=== PATIENT | male | born 1950 | race Caucasian/White ===

== ENCOUNTER 2022-04-10 08:39 | Outpatient (CLI) | payer MEDICARE, SELFPAY | END 2022-04-10 08:40 | disposition home or self-care (01) | PROVIDERS: PCP Family Medicine; Visit Provider Nurse Practitioner Family | DX: L97.822 Non-pressure chronic ulcer of other part of left lower leg with fat layer exposed (principal); E11.21 Type 2 diabetes mellitus with diabetic nephropathy; I89.0 Lymphedema, not elsewhere classified; D63.1 Anemia in chronic kidney disease; I87.311 Chronic venous hypertension (idiopathic) with ulcer of right lower extremity; L97.812 Non-pressure chronic ulcer of other part of right lower leg with fat layer exposed; I50.32 Chronic diastolic (congestive) heart failure | CPT/HCPCS: 11042; 11045 ==

== ENCOUNTER 2022-04-24 08:10 | Outpatient (CLI) | payer MEDICARE, SELFPAY | END 2022-04-24 08:11 | disposition home or self-care (01) | LOC: WOUND 08:10 | PROVIDERS: PCP Family Medicine; Visit Provider Nurse Practitioner Family | DX: L97.822 Non-pressure chronic ulcer of other part of left lower leg with fat layer exposed (principal); E11.21 Type 2 diabetes mellitus with diabetic nephropathy; I89.0 Lymphedema, not elsewhere classified | CPT/HCPCS: 11042; 11045 ==

== ENCOUNTER 2022-05-01 08:02 | Outpatient (CLI) | payer MEDICARE, SELFPAY | END 2022-05-01 08:03 | disposition home or self-care (01) | LOC: WOUND 08:03 | PROVIDERS: PCP Family Medicine; Visit Provider Nurse Practitioner Family | DX: L97.822 Non-pressure chronic ulcer of other part of left lower leg with fat layer exposed (principal); E11.21 Type 2 diabetes mellitus with diabetic nephropathy; I89.0 Lymphedema, not elsewhere classified; Z79.84 Long term (current) use of oral hypoglycemic drugs; I87.312 Chronic venous hypertension (idiopathic) with ulcer of left lower extremity | CPT/HCPCS: 11042 ==

== ENCOUNTER 2022-05-08 08:02 | Outpatient (CLI) | payer MEDICARE, SELFPAY | END 2022-05-08 08:03 | disposition home or self-care (01) | LOC: WOUND 08:02 | PROVIDERS: PCP Family Medicine; Visit Provider Nurse Practitioner Family | DX: I87.312 Chronic venous hypertension (idiopathic) with ulcer of left lower extremity (principal); L97.822 Non-pressure chronic ulcer of other part of left lower leg with fat layer exposed; E11.21 Type 2 diabetes mellitus with diabetic nephropathy; Z79.84 Long term (current) use of oral hypoglycemic drugs; I89.0 Lymphedema, not elsewhere classified | CPT/HCPCS: 11042 ==

== ENCOUNTER 2022-05-15 07:52 | Outpatient (CLI) | payer MEDICARE, SELFPAY | END 2022-05-15 07:53 | disposition home or self-care (01) | LOC: WOUND 07:52 | PROVIDERS: PCP Family Medicine; Visit Provider Nurse Practitioner Family | DX: I87.312 Chronic venous hypertension (idiopathic) with ulcer of left lower extremity (principal); L97.822 Non-pressure chronic ulcer of other part of left lower leg with fat layer exposed; E11.21 Type 2 diabetes mellitus with diabetic nephropathy; I89.0 Lymphedema, not elsewhere classified | CPT/HCPCS: 11042 ==

== ENCOUNTER 2022-05-22 08:00 | Outpatient (CLI) | payer MEDICARE, SELFPAY | END 2022-05-22 08:01 | disposition home or self-care (01) | LOC: WOUND 08:01 | PROVIDERS: PCP Family Medicine; Visit Provider Nurse Practitioner Family | DX: I89.0 Lymphedema, not elsewhere classified (principal); L97.822 Non-pressure chronic ulcer of other part of left lower leg with fat layer exposed; E11.21 Type 2 diabetes mellitus with diabetic nephropathy; Z79.84 Long term (current) use of oral hypoglycemic drugs | CPT/HCPCS: 11042 ==

== ENCOUNTER 2022-05-29 11:03 | Outpatient (CLI) | payer MEDICARE, SELFPAY | END 2022-05-29 11:04 | disposition home or self-care (01) | LOC: WOUND 11:03 | PROVIDERS: PCP Family Medicine; Visit Provider Nurse Practitioner Family | DX: I89.0 Lymphedema, not elsewhere classified (principal); E11.621 Type 2 diabetes mellitus with foot ulcer; L97.822 Non-pressure chronic ulcer of other part of left lower leg with fat layer exposed; L97.812 Non-pressure chronic ulcer of other part of right lower leg with fat layer exposed; Z79.84 Long term (current) use of oral hypoglycemic drugs | CPT/HCPCS: 99212 ==

== ENCOUNTER 2022-06-05 07:50 | Outpatient (CLI) | payer MEDICARE, SELFPAY | END 2022-06-05 07:51 | disposition home or self-care (01) | PROVIDERS: PCP Family Medicine; Visit Provider Nurse Practitioner Family | DX: E11.21 Type 2 diabetes mellitus with diabetic nephropathy (principal); I89.0 Lymphedema, not elsewhere classified; L97.822 Non-pressure chronic ulcer of other part of left lower leg with fat layer exposed; L97.812 Non-pressure chronic ulcer of other part of right lower leg with fat layer exposed; Z79.84 Long term (current) use of oral hypoglycemic drugs | CPT/HCPCS: 99213 ==

== ENCOUNTER 2022-12-25 09:30 | Outpatient (CLI) | payer MEDICARE, SELFPAY | END 2022-12-25 09:31 | disposition home or self-care (01) | LOC: WOUND 09:31 | PROVIDERS: PCP Family Medicine; Visit Provider Nurse Practitioner Family | DX: S61.411A Laceration without foreign body of right hand, initial encounter (principal); E11.9 Type 2 diabetes mellitus without complications; W22.8XXA Striking against or struck by other objects, initial encounter; Z79.84 Long term (current) use of oral hypoglycemic drugs | CPT/HCPCS: 11042; 99212 ==

== ENCOUNTER 2023-01-01 08:45 | Outpatient (CLI) | payer MEDICARE, SELFPAY | END 2023-01-01 08:46 | disposition home or self-care (01) | LOC: WOUND 08:45 | PROVIDERS: PCP Family Medicine; Visit Provider Nurse Practitioner Family | DX: S61.411A Laceration without foreign body of right hand, initial encounter (principal); W22.8XXA Striking against or struck by other objects, initial encounter | CPT/HCPCS: 97597 ==

== ENCOUNTER 2023-01-08 09:14 | Outpatient (CLI) | payer MEDICARE, SELFPAY | END 2023-01-08 09:15 | disposition home or self-care (01) | LOC: WOUND 09:14 | PROVIDERS: PCP Family Medicine; Visit Provider Physician Assistant Surgical | DX: E11.628 Type 2 diabetes mellitus with other skin complications (principal); S61.411A Laceration without foreign body of right hand, initial encounter; Z79.84 Long term (current) use of oral hypoglycemic drugs | CPT/HCPCS: 11042 ==

== ENCOUNTER 2023-01-17 08:56 | Outpatient (CLI) | payer MEDICARE, SELFPAY | END 2023-01-17 08:57 | disposition home or self-care (01) | LOC: WOUND 08:56 | PROVIDERS: PCP Family Medicine; Visit Provider Nurse Practitioner Family | DX: S61.411A Laceration without foreign body of right hand, initial encounter (principal); E11.9 Type 2 diabetes mellitus without complications | CPT/HCPCS: 99212 ==

== ENCOUNTER 2023-12-16 12:02 | Outpatient (CLI) | payer MEDICARE, SELFPAY | END 2023-12-16 12:03 | disposition home or self-care (01) | LOC: AMB 12-21 17:42 | PROVIDERS: PCP Family Medicine; Visit Provider Emergency Medicine | DX: R06.09 Other forms of dyspnea (principal) | CPT/HCPCS: A0425; A0429 ==

== ENCOUNTER 2023-12-16 12:37 | Inpatient (IN) | payer MEDICARE, SELFPAY ==
[2023-12-16] VITALS (10 sets, daily range): BP systolic 115–136; BP diastolic 58–92; PULSE 49–55; RESP 20–22; TEMP 35.7–35.8; O2SAT 94–98; BMI 41.5; BMI 40.0
--- NOTE | 2023-12-16 13:23 | XR_ITS ---
Patient: MERCEDEZ GREEN Facility:?[facility] Patient ID:?[id number] Site Patient ID:?[id number]. Site :?[id number] Study:?XRay-Chest PORTABLE ONE VIEW-12/16/2023 2:02:28 PM Ordering Physician:BERNARDINO Final Report: Indication: Shortness of breath Comparison: None available. Technique: Single AP view chest Findings: There is hyperinflation and chronic interstitial change. There are mildly increased interstitial markings likely representing minimal pulmonary vascular congestion with basilar atelectasis and parenchymal scar. There is no pneumothorax. The cardiac silhouette is mildly prominent. The bony thorax is grossly intact. Impression: Chronic interstitial changes with mildly increased interstitial markings likely representing minimal pulmonary vascular congestion. Dictated by Mark Anthony Ziegler MD @ 12/16/2023 2:12:23 PM Signed by:?Mark Anthony Ziegler MD @12/16/2023 2:12:23 PM (Electronic Signature)
--- NOTE | 2023-12-16 13:29 | ED_ITS ---
HPI - General Adult General Date Seen: 12/16/23 Chief complaint: Shortness of Breath/Dyspnea Stated complaint: Shortness of breath Time Seen by Provider: 12/16/23 13:01 Source: patient, family and RN notes reviewed Mode of arrival: ambulatory Limitations: no limitations History of Present Illness HPI narrative: Patient is a 73-year-old male here with his son for evaluation of shortness of breath and edema in his legs. He notes that this is been progressive, from even before Lisa time but over the past couple of days he feels significantly worse. Says his normal dry weight is between 230 and 240 lb, he is currently at 265 lb, says he has been in the 260s for the past couple of weeks. He is not able to sleep due to discomfort in his legs and difficulty breathing, says he is only able to take a couple of steps before significant shortness of breath. He has not had chest pain or fevers, no cough. He has significant edema in his legs with weeping areas. He had previously been on Eliquis but that was discontinued as he has had some GI bleeding. He is on torsemide 20 mg daily, he tells me he used to take it twice a day but Dr. Mukherjee told him that it was hurting his kidneys and so they backed off to once a day. He is supposed to limit sodium and monitor his weight, he says he checks his weight about once a week. He has an after visit summary with him from September 12, his weight at that time was 238 lb. He was somewhat bradycardic at that time with the heart rate of 49 as well. Related Data Home Medications Medication Instructions Recorded Confirmed acetaminophen 325 mg capsule 325 mg PO QID PRN 12/16/23 12/16/23 atorvastatin 20 mg tablet 20 mg PO QPM 12/16/23 12/16/23 carvedilol 25 mg tablet 25 mg PO BID 12/16/23 12/16/23 febuxostat 40 mg tablet 40 mg PO QAM 12/16/23 12/16/23 ferrous sulfate 325 mg (65 mg 325 mg PO DAILY 12/16/23 12/16/23 iron) tablet (FeroSul) folic acid 1 mg tablet 1 mg PO DAILY 12/16/23 12/16/23 levothyroxine 75 mcg tablet 75 mcg PO QAM 12/16/23 12/16/23 losartan 25 mg tablet 25 mg PO DAILY 12/16/23 12/16/23 magnesium chloride 64 mg 64 mg PO BID 12/16/23 12/16/23 (magnesium chloride) tablet,delayed release (Mag 64) metformin 500 mg tablet,extended 1,000 mg PO QPM 12/16/23 12/16/23 release 24 hr omeprazole 20 mg capsule,delayed 20 mg PO DAILY 12/16/23 12/16/23 release prednisone 20 mg tablet 40 mg PO DAILY PRN gout pain 12/16/23 12/16/23 sildenafil 100 mg tablet 100 mg PO DAILY PRN 12/16/23 12/16/23 thiamine HCl (vitamin B1) 100 mg 100 mg PO DAILY 12/16/23 12/16/23 tablet torsemide 20 mg tablet 20 mg PO DAILY 12/16/23 12/16/23 Allergies Allergy/AdvReac Type Severity Reaction Status Date / Time allopurinol Allergy Mild Hives Verified 12/16/23 13:01 lisinopril Allergy Mild increased Verified 12/16/23 13:01 Cr amlodipine Allergy edema Verified 12/16/23 13:01 Review of Systems Status of ROS: Reports: 10 or more systems reviewed and unremarkable except as noted in History and below [facility] Medical History (Updated 12/16/23 @ 17:25 by Shadia Doyle MD) Normocytic anemia ?D64.9 - Anemia, unspecified (ICD-10) GI bleeding ?K92.2 - Gastrointestinal hemorrhage, unspecified (ICD-10) Alcohol dependence in remission ?F10.21 - Alcohol dependence, in remission (ICD-10) Anasarca ?R60.1 - Generalized edema (ICD-10) Recurrent depression ?F33.9 - Major depressive disorder, recurrent, unspecified (ICD-10) Venous stasis ulcer ?I83.009 - Varicose veins of unspecified lower extremity with ulcer of unspecified site (ICD-10) ?L97.909 - Non-pressure chronic ulcer of unspecified part of unspecified lower leg with unspecified severity (ICD-10) Type 2 diabetes mellitus ?E11.9 - Type 2 diabetes mellitus without complications (ICD-10) Chronic atrial fibrillation ?I48.20 - Chronic atrial fibrillation, unspecified (ICD-10) Obesity ?E66.9 - Obesity, unspecified (ICD-10) Gout ?M10.9 - Gout, unspecified (ICD-10) Impotence of organic origin ?N52.9 - Male erectile dysfunction, unspecified (ICD-10) Essential hypertension ?I10 - Essential (primary) hypertension (ICD-10) Chronic kidney disease (CKD) ?N18.9 - Chronic kidney disease, unspecified (ICD-10) Moderate tricuspid regurgitation ?I07.1 - Rheumatic tricuspid insufficiency (ICD-10) Heart failure with preserved ejection fraction ?I50.30 - Unspecified diastolic (congestive) heart failure (ICD-10) POLST (Physician Orders for Life-Sustaining Treatment) ?Z78.9 - Other specified health status (ICD-10) Social History (Updated 12/16/23 @ 17:29 by Shadia Doyle MD) Narrative: Lives independently. Son, Jacob, lives nearby and checks on him and has offered to make low sodium meals for him. Uses walker. Quit tobacco use in 2002, 10 pack-year history. Drinks 1-2 alcoholic beverages daily. What is your current living situation?: I presently have a place to live Problems where you live: no known problems Problems where you live details: [facility] In the past 12 months, utilities in danger of being shut off: no In past 12 months, lack of transportation kept you from medical appts, meetings, work, or getting things needed for daily living: no In the past 12 mos, have been you worried that your food would run out before you had money to buy more?: never true In the past 12 mos, the food you bought just didn't last and you didn't have money to buy more?: never true Highest level of school completed/degree received: GED or equivalent Smoking Status: Never smoker How often do you have a drink containing alcohol: 4 or more times a week Alcohol type: hard liquor How many standard drinks containing alcohol do you have on a typical day: 3 or 4 How often do you have six or more drinks on one occasion: Less than monthly AUDIT-C Alcohol total score: 6 Non-prescribed substance use: denies use Caffeine: Yes How often does anyone, including family, friends and others, physically hurt you : never How often does anyone, including family, friends and others, insult or talk down to you: never How often does anyone, including family, friends and others, threaten you with harm: never How often does anyone, including family, friends and others, scream or curse at you: never service: No Exam Narrative: Exam Narrative: Vital signs as noted above. In general, an alert, nontoxic elderly male. He is speaking in full sentences, appears a little bit dyspneic. Head: Normocephalic, atraumatic. Eyes: Pupils are equal reactive. Extraocular movements are full. Conjunctivae are normal. ENT: Mucous membranes are moist. Throat is normal. Neck: Supple without lymphadenopathy. Heart: Mildly bradycardic, regular. No murmur. Lungs: Coarse crackles in bilateral bases. Decreased breath sounds. Abdomen: Obese, protuberant, nontender to palpation. Extremities: Significant edema in bilateral lower extremities, venous stasis changes, areas of weeping. Both legs are mildly erythematous but not warm. Neurologic: Patient is alert and oriented to person and place. Speech is fluent. Face is symmetric. Moves all extremities equally. Affect: Normal. Skin: Warm and dry. Well perfused. Const: Vital Signs, click to edit/add: Vital Signs - 24 hr 12/16/23 12:53 12/16/23 13:00 12/16/23 13:30 Temperature 96.5 F L Pulse Rate Pulse Rate [Pulse Oximeter] Pulse Rate [Right Pulse Oximeter] 49 L Respiratory Rate 22 Blood Pressure [Ri ght Arm] Blood Pressure [Ri ght Upper Arm] 125/63 115/58 L 124/72 Pulse Oximetry 98 Oxygen Delivery Me thod Room Air 12/16/23 13:48 12/16/23 14:00 12/16/23 14:18 Temperature Pulse Rate 53 L Pulse Rate [Pulse Oximeter] Pulse Rate [Right Pulse Oximeter] Respiratory Rate Blood Pressure [Ri ght Arm] Blood Pressure [Ri ght Upper Arm] 122/68 Pulse Oximetry 94 97 Oxygen Delivery Me thod 12/16/23 16:46 12/16/23 16:46 Temperature 96.3 F L Pulse Rate Pulse Rate [Pulse Oximeter] 52 L Pulse Rate [Right Pulse Oximeter] Respiratory Rate 22 22 Blood Pressure [Ri ght Arm] 136/92 H Blood Pressure [Ri ght Upper Arm] Pulse Oximetry 97 97 Oxygen Delivery Me thod Room Air Room Air Documenting provider has reviewed patient's vital signs: yes Course Course ED Course: Patient presents with fluid overload, gradually worsening for the past several months, more acutely short of breath over the past couple of days. His O2 sats however are normal at rest. He does live independently, normally walks with a walker. Here today with his son. I am anticipating he will likely not be able to manage at home right now. Will check labs, does have a history of chronic kidney disease, low magnesium, hypothyroidism. Chest x-ray shows cardiomegaly, a little bit of pulmonary vascular congestion both by my review and radiology read. Labs are notable for a slightly depressed white blood cell count of 4, hemoglobin of 8.4. Baseline is unknown. Type and screen added on. Sodium is 133, potassium 5.8. CO2 17, BUN 87, creatinine 4.1. Last recorded at 1.1 in March of 2022. LFTs are unremarkable. CRP less than 0.5, BNP 4100. TSH mildly elevated at 5.3. UA notable for 2-5 red cells, 5-10 white cells but moderate squames. 1+ protein. Point of care troponin was 0.01. He did have an EKG which showed atrial fibrillation with a slow ventricular rate of 54. No acute ST segment changes. T-waves are unremarkable. No signs of hyperkalemia. He does have a history of fairly steady alcohol use, had significant problems with withdrawal last time he was in the hospital, his son says that he continues to drink, but does think that he has cut back some. His blood alcohol here today is actually less than 0.01%, he showing no signs of withdrawal at this time. I gave him 40 mg of Lasix IV and then an additional 40 on seeing his creatinine. Discussed with his son that we will bring him into the hospital for diuresis and monitor his kidney function. This time, though he feels short of breath his O2 sats are 98%, he is not requiring any respiratory assistance. Vital Signs Vital signs: Initial Vital Signs Temperature 96.5 F L 12/16/23 12:53 Temperature Source Temporal Artery Scan 12/16/23 12:53 Pulse Rate 49 L 12/16/23 12:53 Respiratory Rate 22 12/16/23 12:53 Blood Pressure 125/63 12/16/23 12:53 Blood Pressure Mean 83 12/16/23 12:53 Blood Pressure Position Sitting 12/16/23 12:53 Pulse Oximetry 98 12/16/23 12:53 Oxygen Delivery Method Room Air 12/16/23 12:53 Vital Signs Temperature 96.5 F L 12/16/23 12:53 Pulse Rate 49 L 12/16/23 12:53 Respiratory Rate 12/16/23 12:53 Blood Pressure 125/63 12/16/23 12:53 Pulse Oximetry 98 12/16/23 12:53 Oxygen Delivery Method Room Air 12/16/23 12:53 Temperature 96.3 F L 12/16/23 16:46 Pulse Rate 52 L 12/16/23 16:46 Respiratory Rate 12/16/23 16:46 Blood Pressure 136/92 H 12/16/23 16:46 Pulse Oximetry 97 12/16/23 16:46 Oxygen Delivery Method Room Air 12/16/23 16:46 Medications Administered Medications: Discontinued Medications Generic Name Dose Route Start Last Admin Trade Name Freq PRN Reason Stop Dose Admin Furosemide 40 mg 12/16/23 13:22 12/16/23 14:10 Furosemide 10 Mg/Ml Inj IVP 12/16/23 13:23 40 mg ONCE ONE Administration Furosemide 40 mg 12/16/23 14:51 12/16/23 15:06 Furosemide 10 Mg/Ml Inj IVP 12/16/23 14:52 40 mg ONCE ONE Administration Medical Decision Making Lab Data Labs: Lab Results 12/16/23 12/16/23 12/16/23 Range/Units 13:26 13:45 14:38 WBC 4.01 L (4.50-11.00) K/uL RBC 3.15 L (4.30-5.90) m/uL Hgb 8.4 L (13.5-17.5) gm/dL Hct 27.8 L (37.0-53.0) % MCV 88 (80-100) fL MCH 27 (26-34) pg MCHC 30 L (32-36) gm/dL RDW Coeff of Royal 18.1 H (11.5-15.5) % Plt Count 76 L (140-440) K/uL Neut % (Auto) 79.7 H (42.0-72.0) % Lymph % (Auto) 11.7 L (20-44) % [place] % (Auto) 6.5 (0.0-11.0) % Eos % (Auto) 1.7 (0.0-7.0) % Baso % (Auto) 0.2 (0.0-3.0) % Neut # (Auto) 3.20 (1.7-7.0) K/uL Lymph # (Auto) 0.50 L (0.90-2.90) K/uL [place] # (Auto) 0.30 (0.00-0.90) K/UL Eos # (Auto) 0.10 (0.00-0.50) K/uL Baso # (Auto) 0.00 (0.00-0.30) K/uL Abs Immat Gran (auto) 0.00 (0.00-0.30) K/uL Imm/Tot Granulo (auto) 0.2 % Sodium 133 L (135-149) mmol/L Potassium 5.8 H (3.6-5.1) mmol/L Chloride 103 (96-114) mmol/L Carbon Dioxide 17 L (20-32) mmol/L Anion Gap 13 (7-15) mEq/L BUN 87 H (7-30) mg/dL Creatinine 4.1 H (0.5-1.5) mg/dL Estimated Creat Clear 15.00 Estimated GFR 15 ml/min Glucose 81 (60-115) mg/dL Calcium 9.3 (8.4-10.6) mg/dL Magnesium 2.3 (1.5-2.6) mg/dL Total Bilirubin 1.0 (0.1-1.5) mg/dL Direct Bilirubin 0.5 (0.0-0.5) mg/dL AST 22 (12-35) U/L ALT 12 (4-50) U/L Alkaline Phosphatase 110 (40-150) U/L C-Reactive Protein < 0.5 L (0.5-1.0) mg/dL NT-Pro-B Natriuret Pep 4110 pg/mL Total Protein 6.5 (6.0-8.3) g/dL Albumin 4.1 (3.3-5.0) g/dL TSH 5.330 H (0.270-4.200) uIU/mL Urine Color Yellow (Yellow) Urine Appearance Slightly Cloudy A (Clear) Urine pH 5.5 (5.0-8.5) Ur Specific [place] 1.020 (1.000-1.030) Urine Protein 1+ A (Negative) Urine Glucose (UA) Negative (Negative) Urine Ketones Negative (Negative) Urine Blood 2+ A (Negative) Urine Nitrite Negative (Negative) Urine Bilirubin Negative (Negative) Urine Urobilinogen 0.2 (0.2-1.0) Ur Leukocyte Esterase 3+ A (Negative) Urine RBC 2-5 A (0-2) Urine WBC 5-10 A (0-5) Ur Squamous Epith Cells Moderate A (None-Few) Urine Bacteria Moderate A (None) Fine Granular Casts Moderate A (None) Ethyl Alcohol < 0.01 L (0.01-0.03) % POC Troponin I 0.01 (0.01-0.04) ng/ml Blood Type Antibody Screen 12/16/23 Range/Units 15:24 WBC (4.50-11.00) K/uL RBC (4.30-5.90) m/uL Hgb (13.5-17.5) gm/dL Hct (37.0-53.0) % MCV (80-100) fL MCH (26-34) pg MCHC (32-36) gm/dL RDW Coeff of Royal (11.5-15.5) % Plt Count (140-440) K/uL Neut % (Auto) (42.0-72.0) % Lymph % (Auto) (20-44) % [place] % (Auto) (0.0-11.0) % Eos % (Auto) (0.0-7.0) % Baso % (Auto) (0.0-3.0) % Neut # (Auto) (1.7-7.0) K/uL Lymph # (Auto) (0.90-2.90) K/uL [place] # (Auto) (0.00-0.90) K/UL Eos # (Auto) (0.00-0.50) K/uL Baso # (Auto) (0.00-0.30) K/uL Abs Immat Gran (auto) (0.00-0.30) K/uL Imm/Tot Granulo (auto) % Sodium (135-149) mmol/L Potassium 5.8 H (3.6-5.1) mmol/L Chloride (96-114) mmol/L Carbon Dioxide (20-32) mmol/L Anion Gap (7-15) mEq/L BUN (7-30) mg/dL Creatinine (0.5-1.5) mg/dL Estimated Creat Clear Estimated GFR ml/min Glucose (60-115) mg/dL Calcium (8.4-10.6) mg/dL Magnesium (1.5-2.6) mg/dL Total Bilirubin (0.1-1.5) mg/dL Direct Bilirubin (0.0-0.5) mg/dL AST (12-35) U/L ALT (4-50) U/L Alkaline Phosphatase (40-150) U/L C-Reactive Protein (0.5-1.0) mg/dL NT-Pro-B Natriuret Pep pg/mL Total Protein (6.0-8.3) g/dL Albumin (3.3-5.0) g/dL TSH (0.270-4.200) uIU/mL Urine Color (Yellow) Urine Appearance (Clear) Urine pH (5.0-8.5) Ur Specific [place] (1.000-1.030) Urine Protein (Negative) Urine Glucose (UA) (Negative) Urine Ketones (Negative) Urine Blood (Negative) Urine Nitrite (Negative) Urine Bilirubin (Negative) Urine Urobilinogen (0.2-1.0) Ur Leukocyte Esterase (Negative) Urine RBC (0-2) Urine WBC (0-5) Ur Squamous Epith Cells (None-Few) Urine Bacteria (None) Fine Granular Casts (None) Ethyl Alcohol (0.01-0.03) % POC Troponin I (0.01-0.04) ng/ml Blood Type B Positive Antibody Screen NEGATIVE Discharge Plan Discharge Clinical Impression: Congestive heart failure, Acute renal insufficiency Patient Disposition: Admitted As Observation Condition: Stable
[2023-12-16 14:05] LABS: Troponin, Point-of-Care* 0.01 ng/ml (0.01-0.04)
[2023-12-16 14:06] LABS: Basophils Percent Auto 0.2 % (0.0-3.0); Eosinophils Percent Auto 1.7 % (0.0-7.0); Hematocrit 27.8 % (37.0-53.0); Hemoglobin* 8.4 gm/dL (13.5-17.5); Immature Granulocytes Pct Auto 0.2 %; Lymphocytes Percent Auto 11.7 % (20-44); Mean Corpuscular HGB Conc 30 gm/dL (32-36); Mean Corpuscular Hemoglobin 27 pg (26-34); Mean Corpuscular Volume 88 fL (80-100); Monocytes Percent Auto 6.5 % (0.0-11.0); Neutrophils Percent Auto 79.7 % (42.0-72.0); Platelet Count* 76 K/uL (140-440); RDW Coefficient of Variation % 18.1 % (11.5-15.5); Red Blood Count 3.15 m/uL (4.30-5.90); White Blood Count* 4.01 K/uL (4.50-11.00)
[2023-12-16 14:08] LABS: Slide Review Reflex No
[2023-12-16] MEDS: FUROSEMIDE 10 MG/ML inj 40 MG IVP ×2 (14:10→15:06)
[2023-12-16 14:15] LABS: Albumin* 4.1 g/dL (3.3-5.0); Chloride* 103 mmol/L (96-114); Sodium* 133 mmol/L (135-149)
[2023-12-16 14:16] LABS: Potassium* 5.8 mmol/L (3.6-5.1)
[2023-12-16 14:18] LABS: Anion Gap 13 mEq/L (7-15); Bilirubin Direct* 0.5 mg/dL (0.0-0.5); Carbon Dioxide* 17 mmol/L (20-32); Creatinine* 4.1 mg/dL (0.5-1.5); Estimated Glomerular Filt Rate 15 ml/min; Total Protein* 6.5 g/dL (6.0-8.3)
[2023-12-16 14:19] LABS: Alanine Aminotransferase* 12 U/L (4-50); Alkaline Phosphatase* 110 U/L (40-150); Aspartate Amino Transferase* 22 U/L (12-35); Blood Urea Nitrogen* 87 mg/dL (7-30); Calcium* 9.3 mg/dL (8.4-10.6); Glucose* 81 mg/dL (60-115); Magnesium* 2.3 mg/dL (1.5-2.6)
[2023-12-16 14:25] LABS: C Reactive Protein* < 0.5 mg/dL (0.5-1.0)
[2023-12-16 14:29] LABS: NT Pro B Type NatriureticPept* 4110 pg/mL
[2023-12-16 14:55] LABS: Ethanol* < 0.01 % (0.01-0.03)
[2023-12-16 15:13] LABS: Appearance Urine Slightly Cloudy (Clear); Bilirubin Urine Negative (Negative); Blood Urine 2+ (Negative); Color Urine Yellow (Yellow); Glucose Urine Negative (Negative); Ketones Urine Negative (Negative); Leukocyte Esterase Urine 3+ (Negative); Nitrite Urine Negative (Negative); Protein Urine 1+ (Negative); Urobilinogen Urine 0.2 (0.2-1.0); pH Urine 5.5 (5.0-8.5)
[2023-12-16 15:38] LABS: Bacteria Urine Moderate; Squamous Epithelial Cell Urine Moderate (None-Few)
[2023-12-16 15:42] LABS: Fine Granular Casts Urine Moderate
--- NOTE | 2023-12-16 16:59 | US_ITS ---
Patient: MERCEDEZ GREEN Facility:?[facility] Patient ID:?[id number] Site Patient ID:?[id number]. Site :?[id number] Study:?US-Extremity Left DVT-12/16/2023 7:14:24 PM Ordering Physician:JUAN Final Report: INDICATION: Left lower extremity pain, swelling and edema TECHNIQUE: Ultrasound venous duplex lower left extremity. Compression venous exam was performed using peck-scale, color Doppler, and spectral Doppler analysis. COMPARISON: None. FINDINGS: Sonographic imaging demonstrates the left common femoral, deep femoral, superficial femoral, popliteal, posterior tibial and greater saphenous and the contralateral right common femoral veins to be fully compressible with normal color Doppler blood flow. Subcutaneous edema without focal fluid collection. Septated hypoechoic collection at the medial aspect of the knee measuring 3.4 x 7.3 x 1.7 centimeters. IMPRESSION: 1. No evidence of deep venous thrombosis left lower extremity. 2. Subcutaneous edema with complex collection near the medial aspect of the left knee measuring 7.3 centimeters. Differential includes Chowdhury`s cyst, distended bursa or ganglion. Dictated by Rajan Kwan MD @ 12/16/2023 7:25:28 PM Signed by:?Rajan Kwan MD @12/16/2023 7:25:28 PM (Electronic Signature)
--- NOTE | 2023-12-16 17:07 | P.IMHP_ITS ---
Hospitalist- H&P: HPI History of Present Illness Time Seen by Provider: 16:20 Date Seen: 12/16/23 Chief complaint: Shortness of breath Narrative: Javi Whiteside is a 73 year old male with history of diastolic heart failure, type 2 diabetes mellitus, chronic atrial fibrillation with chronic bradycardia, chronic normocytic anemia with known GI bleeding for which he has declined further workup, obesity, chronic kidney disease, hypertension, and chronic lower extremity edema with history of venous stasis ulcers presented through the emergency department with concerns of worsening shortness of breath and fluid buildup. He last saw his tail puller last summer and had an echocardiogram at that time which showed an EF of 52%. He says he was told his heart was fine. Since then he has been working with his primary care provider Dr. Mukherjee and last saw him at the end of October. He had been on torsemide twice a day, but due to elevated creatinine, Dr. Mukherjee decreased torsemide to once a day. In September his weight was 238 lb, but he has been gaining weight over the last couple of weeks and is now in the 260s. It is becoming difficult for him to sleep due to difficulty breathing and discomfort in his legs. He is unable to elevate his legs due to weeping and fragile skin, so he has been letting them day ankle while he tries to sleep sitting up in a recliner chair without reclining. He has gotten no sleep over the last 2 nights due to shortness of breath. He notices that his lower extremities are getting extremely edematous and notes that the left is much worse than the right. He is also having left groin pain. In the last 2 days, he has had markedly decreased urine output. He knows he is supposed to be on a low-salt diet, but he lives at home alone and cooks for himself and has difficulty figuring out what to eat on a low-salt d iet. He regularly has various types of hard sausages, deli meats, canned soups, breads and pastas as part of his diet. His son, Jacob, is in the room with him and says that he will start going grocery shopping for his dad again and will get him an immersion cooker and make VAC sealed meets and vegetables that he can cook with that to help him be on a low-salt diet. He has a history of venous stasis ulcers for which he used to go to wound care, but they healed up insert he does not go to wound care anymore. He still uses [facility] if he notices a spot that is breaking open. He has had many spots break open over the last few days. Review of Systems Status of ROS: Reports: 10 or more systems reviewed and unremarkable except as noted in History and below [facility] Medical History (Updated 12/16/23 @ 19:29 by Shadia Doyle MD) Normocytic anemia ?D64.9 - Anemia, unspecified (ICD-10) GI bleeding ?K92.2 - Gastrointestinal hemorrhage, unspecified (ICD-10) Alcohol dependence in remission ?F10.21 - Alcohol dependence, in remission (ICD-10) Anasarca ?R60.1 - Generalized edema (ICD-10) Recurrent depression ?F33.9 - Major depressive disorder, recurrent, unspecified (ICD-10) Venous stasis ulcer ?I83.009 - Varicose veins of unspecified lower extremity with ulcer of unspecified site (ICD-10) ?L97.909 - Non-pressure chronic ulcer of unspecified part of unspecified lower leg with unspecified severity (ICD-10) Type 2 diabetes mellitus ?E11.9 - Type 2 diabetes mellitus without complications (ICD-10) Chronic atrial fibrillation ?I48.20 - Chronic atrial fibrillation, unspecified (ICD-10) Obesity ?E66.9 - Obesity, unspecified (ICD-10) Gout ?M10.9 - Gout, unspecified (ICD-10) Impotence of organic origin ?N52.9 - Male erectile dysfunction, unspecified (ICD-10) Essential hypertension ?I10 - Essential (primary) hypertension (ICD-10) Chronic kidney disease (CKD) ?N18.9 - Chronic kidney disease, unspecified (ICD-10) Moderate tricuspid regurgitation ?I07.1 - Rheumatic tricuspid insufficiency (ICD-10) Heart failure with preserved ejection fraction ?I50.30 - Unspecified diastolic (congestive) heart failure (ICD-10) POLST (Physician Orders for Life-Sustaining Treatment) ?Z78.9 - Other specified health status (ICD-10) Social History (Updated 12/16/23 @ 17:29 by Shadia Doyle MD) Narrative: Lives independently. SonJacob, lives nearby and checks on him and has offered to make low sodium meals for him. Uses walker. Quit tobacco use in 2002, 10 pack-year history. Drinks 1-2 alcoholic beverages daily. What is your current living situation?: I presently have a place to live Problems where you live: no known problems Problems where you live details: [facility] In the past 12 months, utilities in danger of being shut off: no In past 12 months, lack of transportation kept you from medical appts, meetings, work, or getting things needed for daily living: no In the past 12 mos, have been you worried that your food would run out before you had money to buy more?: never true In the past 12 mos, the food you bought just didn't last and you didn't have money to buy more?: never true Highest level of school completed/degree received: GED or equivalent Smoking Status: Never smoker How often do you have a drink containing alcohol: 4 or more times a week Alcohol type: hard liquor How many standard drinks containing alcohol do you have on a typical day: 3 or 4 How often do you have six or more drinks on one occasion: Less than monthly AUDIT-C Alcohol total score: 6 Non-prescribed substance use: denies use Caffeine: Yes How often does anyone, including family, friends and others, physically hurt you : never How often does anyone, including family, friends and others, insult or talk down to you: never How often does anyone, including family, friends and others, threaten you with harm: never How often does anyone, including family, friends and others, scream or curse at you: never service: No Meds Home Medications and Allergies Home Medications Medication Instructions Recorded Confirmed Type acetaminophen 325 mg capsule 325 mg PO QID PRN 12/16/23 12/16/23 History atorvastatin 20 mg tablet 20 mg PO QPM 12/16/23 12/16/23 History carvedilol 25 mg tablet 25 mg PO BID 12/16/23 12/16/23 History febuxostat 40 mg tablet 40 mg PO QAM 12/16/23 12/16/23 History ferrous sulfate 325 mg (65 mg 325 mg PO DAILY 12/16/23 12/16/23 History iron) tablet (FeroSul) folic acid 1 mg tablet 1 mg PO DAILY 12/16/23 12/16/23 History levothyroxine 75 mcg tablet 75 mcg PO QAM 12/16/23 12/16/23 History losartan 25 mg tablet 25 mg PO DAILY 12/16/23 12/16/23 History magnesium chloride 64 mg 64 mg PO BID 12/16/23 12/16/23 History (magnesium chloride) tablet,delayed release (Mag 64) metformin 500 mg tablet,extended 1,000 mg PO QPM 12/16/23 12/16/23 History release 24 hr omeprazole 20 mg capsule,delayed 20 mg PO DAILY 12/16/23 12/16/23 History release prednisone 20 mg tablet 40 mg PO DAILY PRN gout pain 12/16/23 12/16/23 History sildenafil 100 mg tablet 100 mg PO DAILY PRN 12/16/23 12/16/23 History thiamine HCl (vitamin B1) 100 mg 100 mg PO DAILY 12/16/23 12/16/23 History tablet torsemide 20 mg tablet 20 mg PO DAILY 12/16/23 12/16/23 History Allergies Allergy/AdvReac Type Severity Reaction Status Date / Time allopurinol Allergy Mild Hives Verified 12/16/23 13:01 lisinopril Allergy Mild increased Verified 12/16/23 13:01 Cr amlodipine Allergy edema Verified 12/16/23 13:01 Exam Narrative: Exam Narrative: General: No acute distress. Awake alert oriented x3. Morbidly obese. HEENT: Normocephalic atraumatic, pupils equally round and reactive to light and accommodation. Oropharynx clear. Mucous membranes are moist. No cervical lymphadenopathy, thyromegaly or carotid bruits. JVD and HJR present at 60 degrees elevation of the head. Cardiovascular: Irregularly irregular, bradycardic. Grade 1/6 systolic murmur loudest at the left lower sternal border. Chest: No increased work of breathing; taking shallow breaths, breathes harder when sitting forward for lung exam. Distant breath sounds at the bases, fine bibasilar crackles. Abdomen: Protuberant. Bowel sounds present. Distended, some ascites, nontender to palpation. Cannot discern if there is hepatosplenomegaly. Extremities: Massive bilateral lower extremity edema, left worse than right, no cyanosis or clubbing. Skin is taut and weepy with multiple superficial weeping ulcers of various sizes up to a quarter on both lower extremities. There is no purulence. No induration although there is mild erythema uniformly over both l ower extremities, no bleeding. No calor. Skin: No jaundice, no pallor. Const: Vital Signs, click to edit/add: Vital Signs - 24 hr 12/16/23 12:53 12/16/23 13:00 12/16/23 13:30 Temperature 96.5 F L Pulse Rate Pulse Rate [Right Pulse Oximeter] 49 L Respiratory Rate 22 Blood Pressure [Ri ght Upper Arm] 125/63 115/58 L 124/72 Pulse Oximetry 98 [facility] 12/16/23 13:48 12/16/23 14:00 12/16/23 14:18 Temperature Pulse Rate 53 L Pulse Rate [Right Pulse Oximeter] Respiratory Rate Blood Pressure [Ri ght Upper Arm] 122/68 Pulse Oximetry 94 97 [facility] - H&P: Result Labs Labs: Short CBC 12/16/23 Range/Units 13:45 WBC 4.01 L (4.50-11.00) K/uL Hgb 8.4 L (13.5-17.5) gm/dL Hct 27.8 L (37.0-53.0) % Plt Count 76 L (140-440) K/uL BMP 12/16/23 13:45 Sodium 133 L Potassium 5.8 H Chloride 103 Carbon Dioxide 17 L BUN 87 H Creatinine 4.1 H Glucose 81 Calcium 9.3 Liver Function 12/16/23 Range/Units 13:45 Total Bilirubin 1.0 (0.1-1.5) mg/dL Direct Bilirubin 0.5 (0.0-0.5) mg/dL AST 22 (12-35) U/L ALT 12 (4-50) U/L Alkaline Phosphatase 110 (40-150) U/L Albumin 4.1 (3.3-5.0) g/dL Urine 12/16/23 Range/Units 14:38 Urine Color Yellow (Yellow) Urine Appearance Slightly Cloudy A (Clear) Urine pH 5.5 (5.0-8.5) Ur Specific [place] 1.020 (1.000-1.030) Urine Protein 1+ A (Negative) Urine Glucose (UA) Negative (Negative) Study: XRay Chest PORTABLE ONE VIEW-12/16/2023 2:02:28 PM Ordering Physician: JEANIE Final Report: Indication: Shortness of breath Comparison: None available. Technique: Single AP view chest Findings: There is hyperinflation and chronic interstitial change. There are mildly increased interstitial markings likely representing minimal pulmonary vascular congestion with basilar atelectasis and parenchymal scar. There is no pneumothorax. The cardiac silhouette is mildly prominent. The bony thorax is grossly intact. Impression: Chronic interstitial changes with mildly increased interstitial markings likely representing minimal pulmonary vascular congestion. Dictated by Mark Anthony Ziegler MD @ 12/16/2023 2:12:23 PM (Electronic Signature) ECG Interpretation: 12/16/2023 EKG: Atrial fibrillation with slow ventricular response, 54 beats per minute, right bundle-branch block. Assessment and Plan Assessment and plan (1) Acute on chronic heart failure: Problem comment: - Diastolic, most recent echo was 05/09/2023 which showed an EF of 52%. Since this was less than a year ago, I do not think he needs another one during this admission. - Admit for diuresis. I explained to the patient that renal failure is likely due to urinary retention and heart failure and will likely improve some with diuresis, but there is also a chance that it may worsen and he may need dialysis. Due to markedly elevated creatinine, start furosemide at [address] wilson catheter for suspected acute urinary obstruction. Monitor I/Os and daily weights. - Discussed low sodium diet. Also start water restriction. Status: Acute (2) Acute kidney injury: Problem comment: - on top of chronic kidney disease stage 3-4 - likely multifactorial including cardiorenal syndrome from heart failure and acute urinary retention - Hold atorvastatin, carvedilol, febuxostat, and metformin, place freddy wilson as above Status: Acute (3) Cardiorenal syndrome with renal failure: Problem comment: - Treat as above Status: Acute (4) Hyperkalemia: Problem comment: - EKG does not show any effect of hyperkalemia. - Will give calcium gluconate for cardiac membrane stabilization. - Will likely correct with furosemide being given for diuresis. Monitor on telemetry and recheck potassium in the morning. Hold losartan. Status: Acute (5) Edema of left lower extremity: Problem comment: - Bilateral, but L much worse than R. Obtain LLE US for DVT, although if patient has DVT, discussion regarding treatment will need to take place due to severity of anemia and h/o GI bleed. Diurese, elevate and wrap legs with POPEYE wraps. Status: Acute (6) Type 2 diabetes mellitus: Problem comment: - Metformin held due to ANDREY, start ISS Status: Chronic (7) Venous stasis ulcer: Problem comment: - Does not appear cellulitic. Diurese, elevate legs, Popeye wraps, monitor. May need to return to wound clinic as an outpatient. Status: Acute (8) Chronic atrial fibrillation: Problem comment: - bradycardic, hold coreg - Eliquis on hold due to h/o GI bleeding, anemia. Status: Chronic (9) Essential hypertension: Problem comment: - as above Status: Chronic (10) GI bleeding: Problem comment: - Unclear source, has stopped Eliquis due to bleeding - Avoid pharmacologic VTE prophylaxis Status: Chronic (11) Normocytic anemia: Problem comment: - likely multifactorial due to GI bleed, CKD Status: Chronic
[2023-12-16 17:25] LABS: Potassium* 5.8 mmol/L (3.6-5.1)
[2023-12-16 17:29] LABS: Magnesium* 2.4 mg/dL (1.5-2.6)
--- NOTE | 2023-12-16 18:28 | PC.NURSE ---
End of shift note: Pt arrived to unit at 1500. Pt is A&O, afebrile and VSS this afternoon. Ax1 with gait belt and 2ww for transfers and ambulation. Farfan catheter placed per MD order with unmeasurable output thus far. Pt voided for 50 mL prior to catheter placement. PIV in left wrist SL and C/D/I. BLE 3+ with weeping blisters. BLE wrapped with Kerlix & ELAINE wraps. Patients Transporter noticed redness to his coccyx. Placed on TELE reading A. Fib with bradycardia rate in the 40s-50s. Pt started on 1500 mL fluid restriction. Blood sugar before supper: 97, pt started on his evening meal but has been unable to finish it d/t BLE US ordered to r/o VTE. Potassium high at 5.8; Calcium gluconate 1000mg IV ordered but has not been verified by pharmacy yet.
[2023-12-16 18:29] LABS: Free T4 Free Thyroxine* 1.51 ng/dL (0.70-1.85)
[2023-12-16] MEDS: CALCIUM GLUC 1,000MG/50 ML 1,000 MG/50 ML BAG 100 MG IVPB (19:28)
[2023-12-16] MEDS: MELATONIN 3 MG TABLET PO (21:15)
[2023-12-16] MEDS: ACETAMINOPHEN 325 MG TABLET 650 MG PO (21:15)
[2023-12-16] MEDS: FUROSEMIDE 10 MG/ML inj 80 MG IVP (22:48)
[2023-12-16] MEDS: SODIUM CHLORIDE 0.9 % (FLUSH) 10 ML SYRINGE 5 ML IVF (22:49)
[2023-12-16] MEDS: lidocaine HCL 2 % JELLY (TOP) STERILE 6 ML UR (23:02)
[2023-12-16] MEDS: oxyBUTYnin chloride 5 MG TABLET PO (23:02)
[2023-12-17 02:02] VITALS: BP 104/59; PULSE 58; RESP 20; TEMP 35.8; O2SAT 95
[2023-12-17] MEDS: HYDROmorphone 0.5 mg/0.5 ml inj 0.4 MG IVP (04:29)
[2023-12-17 04:50] VITALS: PULSE 51
[2023-12-17] MEDS: lidocaine HCL 2 % JELLY (TOP) STERILE 6 ML UR (06:09)
[2023-12-17 07:00] VITALS: BP 119/66; PULSE 48; RESP 24; TEMP 35.8; O2SAT 98
[2023-12-17 07:23] LABS: Basophils Absolute Auto 0.01 K/uL (0.00-0.30); Basophils Percent Auto 0.2 % (0.0-3.0); Eosinophils Absolute Auto 0.01 K/uL (0.00-0.50); Eosinophils Percent Auto 0.2 % (0.0-7.0); Hematocrit 28.1 % (37.0-53.0); Hemoglobin* 8.6 gm/dL (13.5-17.5); Immature Granulocytes Abs Auto 0.02 K/uL (0.00-0.30); Immature Granulocytes Pct Auto 0.4 %; Lymphocytes Percent Auto 4.8 % (20-44); Mean Corpuscular HGB Conc 31 gm/dL (32-36); Mean Corpuscular Hemoglobin 27 pg (26-34); Mean Corpuscular Volume 87 fL (80-100); Monocytes Percent Auto 8.8 % (0.0-11.0); Neutrophils Percent Auto 85.6 % (42.0-72.0); Platelet Count* 83 K/uL (140-440); RDW Coefficient of Variation % 17.8 % (11.5-15.5); Red Blood Count 3.23 m/uL (4.30-5.90); White Blood Count* 5.21 K/uL (4.50-11.00)
[2023-12-17 07:27] LABS: Slide Review Reflex No
[2023-12-17 07:36] LABS: Chloride* 101 mmol/L (96-114); Sodium* 134 mmol/L (135-149)
[2023-12-17 07:39] LABS: Anion Gap 16 mEq/L (7-15); Blood Urea Nitrogen* 94 mg/dL (7-30); Carbon Dioxide* 17 mmol/L (20-32); Creatinine* 4.4 mg/dL (0.5-1.5); Est. Creatinine Clearance* 14.95; Estimated Glomerular Filt Rate 13 ml/min; Glucose* 133 mg/dL (60-115)
[2023-12-17 07:40] LABS: Calcium* 9.5 mg/dL (8.4-10.6); Uric Acid* 5.2 mg/dL (2.2-8.4)
[2023-12-17 07:47] LABS: Potassium* 6.2 mmol/L (3.6-5.1)
[2023-12-17 07:48] LABS: Phosphorus* 7.1 mg/dL (2.5-4.5)
[2023-12-17] MEDS: FUROSEMIDE 10 MG/ML inj 80 MG IVP (07:48)
[2023-12-17] MEDS: FERROUS SULFATE 325 MG TABLET PO (07:49)
[2023-12-17] MEDS: OMEPRAZOLE 20 MG CAPSULE DR PO (07:49)
[2023-12-17] MEDS: oxyBUTYnin chloride 5 MG TABLET PO (07:49)
[2023-12-17] MEDS: FOLIC ACID 1 MG TABLET PO (07:49)
[2023-12-17] MEDS: THIAMINE 100 MG TABLET PO (07:49)
[2023-12-17] MEDS: SODIUM CHLORIDE 0.9 % (FLUSH) 10 ML SYRINGE 5 ML IVF (07:51)
--- NOTE | 2023-12-17 07:51 | PC.NURSE ---
Patient reported pain from catheter rated 6-10/10. Farfan draining urine however output low. Dr Doyle updated. Oxybutynin ordered and bladder scanner obtained with inconsistent results. Catheter patency checked. Catheter irrigated with NS. Some resistance felt at times. A few small blood clots noted. Urine pink tinged and leaking around catheter at times. [facility] hospitalist updated. New orders for pain one time pain med. New catheter placed however pt continues to have pain and leaking urine. Dr Colbert updated this morning.?
[2023-12-17] MEDS: SODIUM ZIRCONIUM CYCLOSILICATE 10 GM PO (08:12)
[2023-12-17] MEDS: carvediloL 6.25 MG TABLET PO (08:12)
[2023-12-17] MEDS: LEVOTHYROXINE 75 MCG TABLET PO (08:12)
[2023-12-17] MEDS: CALCIUM GLUC 1,000MG/50 ML 1,000 MG/50 ML BAG 100 MG IVPB (09:59)
[2023-12-17] MEDS: NYSTATIN CREAM 30 GM 1 APPLIC TOPICAL (09:59)
[2023-12-17] MEDS: DEXTROSE 50 % SYRINGE IVP (10:01)
[2023-12-17 11:00] VITALS: BP 105/76; PULSE 49; RESP 24; TEMP 35.9; O2SAT 97
--- NOTE | 2023-12-17 11:00 | P.IMPN_ITS ---
Progress Note: A&P Assessment and plan (1) Cardiorenal syndrome with renal failure: Problem details: Did not respond well to attempts at diuresis here. Will need urgent dialysis. Transfer to [facility] Status: Acute (2) Edema of left lower extremity: Problem details: - Bilateral, but L much worse than R. Obtain LLE US for DVT, although if patient has DVT, discussion regarding treatment will need to take place due to severity of anemia and h/o GI bleed. Diurese, elevate and wrap legs with POPEYE wraps. Status: Acute (3) Normocytic anemia: Problem details: - likely multifactorial due to GI bleed, CKD Status: Chronic (4) GI bleeding: Problem details: - Unclear source, has stopped Eliquis due to bleeding - Avoid pharmacologic VTE prophylaxis Status: Chronic (5) Venous stasis ulcer: Problem details: - Does not appear cellulitic. Diurese, elevate legs, Popeye wraps, monitor. May need to return to wound clinic as an outpatient. Status: Acute (6) Type 2 diabetes mellitus: Problem details: - Metformin held due to ANDREY, start ISS Status: Chronic (7) Chronic atrial fibrillation: Problem details: - bradycardic, hold coreg - Eliquis on hold due to h/o GI bleeding, anemia. Status: Chronic (8) Hyperkalemia: Problem details: - EKG does not show any effect of hyperkalemia. - Will give calcium gluconate for cardiac membrane stabilization. - Will likely correct with furosemide being given for diuresis. Monitor on telemetry and recheck potassium in the morning. Hold losartan. Status: Acute (9) Acute on chronic heart failure: Problem details: - Diastolic, most recent echo was 05/09/2023 which showed an EF of 52%. Since this was less than a year ago, I do not think he needs another one during this admission. - Admit for diuresis. I explained to the patient that renal failure is likely due to urinary retention and heart failure and will likely improve some with diuresis, but there is also a chance that it may worsen and he may need dialysis. Due to markedly elevated creatinine, start furosemide at [address] wilson catheter for suspected acute urinary obstruction. Monitor I/Os and daily weights. - Discussed low sodium diet. Also start water restriction. 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 Time Spent With Patient Total time spent: Total time spent in critical care today is 80 minutes. Subjective Date Seen: 12/17/23 Interval history: 73-year-old male with history of heart failure, AFib, iron deficiency anemia, chronic kidney disease presents with increasing weight, dyspnea and lower extremity edema. Patient has been followed as an outpatient by his primary care doctor who had tried to increase his torsemide from 20 to 40 mg/day last August but had increase in his creatinine so he went back to 20 mg daily. His most recent cr eatinine as an outpatient was 2 in October. On admission last night he was found to be in some pulmonary edema but not requiring oxygen. He had a potassium of 5.8, a creatinine of 4.1 a bicarb of 17. He received furosemide 120 mg IV last evening. He has had minimal urine output. This morning his potassium is 6.2 his creatinine is 4.4 his bicarb is 17 and his phosphorus is 7.1. His electrocardiogram shows no significant ST-T changes he has AFib with bradycardia. He is on carvedilol 25 mg b.i.d. and losartan 25 mg daily. Both of these were held. I prescribed carvedilol 6.25 mg today in anticipation of problems with AFib rate control. Overnight he has had problems with the catheter and was swabbed out. He had no hematuria prior to placement of the catheter but then had problems with h ematuria and bladder spasms since the catheter was placed. Does not any evidence of catheter obstruction so far. He is still not requiring oxygen but he has dyspnea. Reports he did sleep well last night. He normally sleeps in a recliner and did so here last night. He has not had a fever. He has not had any chest pain. Exam Narrative: Exam Narrative: He is alert. He has conversational dyspnea. Small airway. Respirations with rare basilar crackle. Rare basilar wheezing present as well. Cardiovascular: S1, S2, irregular bradycardia. Abdomen: Bowel sounds active. Abdomen is quite distended without tenderness. External genitalia with catheter in place. Draining a bloody urine. Extremities with marked bilateral edema and losing of superficial ulcerations. Chronic venous stasis skin changes noted. Const: Vital Signs, click to edit/add: Vital Signs - 24 hr 12/16/23 12:53 12/16/23 13:00 12/16/23 13:30 Temperature 96.5 F L Pulse Rate Pulse Rate [Pulse Oximeter] Pulse Rate [Right Pulse Oximeter] 49 L Respiratory Rate 22 Blood Pressure [Ri ght Arm] Blood Pressure [Ri ght Upper Arm] 125/63 115/58 L 124/72 Pulse Oximetry [facility] 12/16/23 13:48 12/16/23 14:00 12/16/23 14:18 Temperature Pulse Rate 53 L Pulse Rate [Pulse Oximeter] Pulse Rate [Right Pulse Oximeter] Respiratory Rate Blood Pressure [Ri ght Arm] Blood Pressure [Ri ght Upper Arm] 122/68 Pulse Oximetry 94 97 [facility] 12/16/23 16:46 12/16/23 16:46 12/16/23 16:47 Temperature 96.3 F L Pulse Rate 51 L Pulse Rate [Pulse Oximeter] 52 L Pulse Rate [Right Pulse Oximeter] Respiratory Rate 22 22 Blood Pressure [Ri ght Arm] 136/92 H Blood Pressure [Ri ght Upper Arm] Pulse Oximetry 97 97 [facility] Room Air 12/16/23 19:50 12/16/23 23:00 12/16/23 23:00 Temperature 96.2 F L 96.2 F L Pulse Rate Pulse Rate [Pulse Oximeter] 52 L 52 L 55 L Pulse Rate [Right Pulse Oximeter] Respiratory Rate 22 20 20 Blood Pressure [Ri ght Arm] 130/78 132/88 Blood Pressure [Ri ght Upper Arm] Pulse Oximetry 95 95 [facility] Room Air 12/16/23 23:00 12/17/23 02:02 12/17/23 04:50 Temperature 96.4 F L Pulse Rate 51 L Pulse Rate [Pulse Oximeter] 58 L Pulse Rate [Right Pulse Oximeter] Respiratory Rate 20 20 Blood Pressure [Ri ght Arm] 104/59 L Blood Pressure [Ri ght Upper Arm] Pulse Oximetry 95 95 Oxygen Delivery Me thod Room Air Room Air 12/17/23 07:00 12/17/23 07:00 12/17/23 07:00 Temperature Pulse Rate 48 L Pulse Rate [Pulse Oximeter] 48 L Pulse Rate [Right Pulse Oximeter] Respiratory Rate 24 24 Blood Pressure [Ri ght Arm] Blood Pressure [Ri ght Upper Arm] Pulse Oximetry 98 Oxygen Delivery Me thod Room Air 12/17/23 07:00 Temperature 96.5 F L Pulse Rate Pulse Rate [Pulse Oximeter] 48 L Pulse Rate [Right Pulse Oximeter] Respiratory Rate 24 Blood Pressure [Ri ght Arm] 119/66 Blood Pressure [Ri ght Upper Arm] Pulse Oximetry 98 Oxygen Delivery Me thod Room Air Documenting provider has reviewed patient's vital signs: yes Labs Labs: Laboratory Results - last 24 hr 12/16/23 12/16/23 12/16/23 13:26 13:45 14:38 WBC 4.01 L RBC 3.15 L Hgb 8.4 L Hct 27.8 L MCV 88 MCH 27 MCHC 30 L RDW Coeff of Royal 18.1 H Plt Count 76 L Neut % (Auto) 79.7 H Lymph % (Auto) 11.7 L Caldwell % (Auto) 6.5 Eos % (Auto) 1.7 Baso % (Auto) 0.2 Neut # (Auto) 3.20 Lymph # (Auto) 0.50 L Caldwell # (Auto) 0.30 Eos # (Auto) 0.10 Baso # (Auto) 0.00 Abs Immat Gran (auto) 0.00 Imm/Tot Granulo (auto) 0.2 Sodium 133 L Potassium 5.8 H Chloride 103 Carbon Dioxide 17 L Anion Gap 13 BUN 87 H Creatinine 4.1 H Estimated Creat Clear 15.00 Estimated GFR 15 Glucose 81 Uric Acid Calcium 9.3 Phosphorus Magnesium 2.3 Total Bilirubin 1.0 Direct Bilirubin 0.5 AST 22 ALT 12 Alkaline Phosphatase 110 C-Reactive Protein < 0.5 L NT-Pro-B Natriuret Pep 4110 Total Protein 6.5 Albumin 4.1 TSH 5.330 H Free T4 1.51 Urine Color Yellow Urine Appearance Slightly Cloudy A Urine pH 5.5 Ur Specific [place] 1.020 Urine Protein 1+ A Urine Glucose (UA) Negative Urine Ketones Negative Urine Blood 2+ A Urine Nitrite Negative Urine Bilirubin Negative Urine Urobilinogen 0.2 Ur Leukocyte Esterase 3+ A Urine RBC 2-5 A Urine WBC 5-10 A Ur Squamous Epith Cells Moderate A Urine Bacteria Moderate A Fine Granular Casts Moderate A Ethyl Alcohol < 0.01 L POC Troponin I 0.01 Lab Acknowledgement Blood Type Antibody Screen 12/16/23 12/17/23 12/17/23 15:24 07:06 07:09 WBC 5.21 RBC 3.23 L Hgb 8.6 L Hct 28.1 L MCV 87 MCH 27 MCHC 31 L RDW Coeff of Royal 17.8 H Plt Count 83 L Neut % (Auto) 85.6 H Lymph % (Auto) 4.8 L Caldwell % (Auto) 8.8 Eos % (Auto) 0.2 Baso % (Auto) 0.2 Neut # (Auto) 4.50 Lymph # (Auto) 0.30 L Caldwell # (Auto) 0.50 Eos # (Auto) 0.01 Baso # (Auto) 0.01 Abs Immat Gran (auto) 0.02 Imm/Tot Granulo (auto) 0.4 Sodium 134 L Potassium 5.8 H 6.2 H* Chloride 101 Carbon Dioxide 17 L Anion Gap 16 H BUN 94 H Creatinine 4.4 H Estimated Creat Clear 14.95 Estimated GFR 13 Glucose 133 H Uric Acid 5.2 Calcium 9.5 Phosphorus 7.1 H* Magnesium 2.4 Total Bilirubin Direct Bilirubin AST ALT Alkaline Phosphatase C-Reactive Protein NT-Pro-B Natriuret Pep Total Protein Albumin TSH Free T4 Urine Color Urine Appearance Urine pH Ur Specific [place] Urine Protein Urine Glucose (UA) Urine Ketones Urine Blood Urine Nitrite Urine Bilirubin Urine Urobilinogen Ur Leukocyte Esterase Urine RBC Urine WBC Ur Squamous Epith Cells Urine Bacteria Fine Granular Casts Ethyl Alcohol POC Troponin I Lab Acknowledgement Test Added Blood Type B Positive Antibody Screen NEGATIVE 12/17/23 07:12 WBC RBC Hgb Hct MCV MCH MCHC RDW Coeff of Royal Plt Count Neut % (Auto) Lymph % (Auto) Caldwell % (Auto) Eos % (Auto) Baso % (Auto) Neut # (Auto) Lymph # (Auto) Caldwell # (Auto) Eos # (Auto) Baso # (Auto) Abs Immat Gran (auto) Imm/Tot Granulo (auto) Sodium Potassium Chloride Carbon Dioxide Anion Gap BUN Creatinine Estimated Creat Clear Estimated GFR Glucose Uric Acid Calcium Phosphorus Magnesium Total Bilirubin Direct Bilirubin AST ALT Alkaline Phosphatase C-Reactive Protein NT-Pro-B Natriuret Pep Total Protein Albumin TSH Free T4 Urine Color Urine Appearance Urine pH Ur Specific [place] Urine Protein Urine Glucose (UA) Urine Ketones Urine Blood Urine Nitrite Urine Bilirubin Urine Urobilinogen Ur Leukocyte Esterase Urine RBC Urine WBC Ur Squamous Epith Cells Urine Bacteria Fine Granular Casts Ethyl Alcohol POC Troponin I Lab Acknowledgement Test Added Blood Type Antibody Screen
[2023-12-17 11:17] LABS: Chloride* 101 mmol/L (96-114)
[2023-12-17 11:18] LABS: Potassium* 5.7 mmol/L (3.6-5.1); Sodium* 132 mmol/L (135-149)
[2023-12-17 11:21] LABS: Anion Gap 14 mEq/L (7-15); Blood Urea Nitrogen* 97 mg/dL (7-30); Calcium* 9.2 mg/dL (8.4-10.6); Carbon Dioxide* 17 mmol/L (20-32); Creatinine* 4.3 mg/dL (0.5-1.5); Estimated Glomerular Filt Rate 14 ml/min; Glucose* 231 mg/dL (60-115)
--- NOTE | 2023-12-17 11:36 | PC.NURSE ---
Nursing transfer note: Pt has been A&O, afebrile and VSS this morning. TELE continues to read A. Fib with bradycardia rate in the 40s-50s. EKG done and also showed A. Fib bradycardia. K+ this morning 6.2 > gave 10g of Lokelma, 1g Calcium gluconate, 10 units regular insulin and 1 amp of D50. Recheck prior to discharge 5.7. AM blood sugar: 134; SS insulin held and 1100 recheck: 227. PIV in left FA SL and C/D/I. Left eye noted to be bloodshot & pt reported that ?this happens every so often with stress?. Gave 80mg IV Lasix this morning and result was 200 mL bright red, bloody urine. Farfan catheter C/D/I but continues to be very painful for patient. Pain comes in waves and pt reports its mostly around his penis. He will scream and holler out in pain. No changes in vitals. Nystatin cream applied to left axilla, left groin and coccyx. LS diminished with fine crackles in the right base. BLE ELAINE wraps C/D/I with 3+ to 4+ BLE edema. ? D/t patient?s high acuity and needing a higher level of care- he was transferred to [facility] via EMS at 1105. Report given to RN at [place] and to EMS personnel. Pt is in stable condition on discharge. Son, Jacob, was updated on patient?s transfer. ?
--- NOTE | 2023-12-17 13:34 | REH.PT ---
Declined PT Yinka this am. Pt carin be transferring to [facility] later today.
== END 2023-12-17 11:05 | disposition short-term general hospital (02) | DRG 682 ==
LOC: ED 14:57 → MEDSURG 15:06
PROVIDERS: Admitting Provider Family Medicine; Emergency Provider Emergency Medicine; PCP Family Medicine; Visit Provider Family Medicine
DX: N17.8 Other acute kidney failure (principal); I50.33 Acute on chronic diastolic (congestive) heart failure; I13.0 Hypertensive heart and chronic kidney disease with heart failure and stage 1 through stage 4 chronic kidney disease, or unspecified chronic kidney disease; K92.2 Gastrointestinal hemorrhage, unspecified; I48.20 Chronic atrial fibrillation, unspecified; N13.8 Other obstructive and reflux uropathy; L97.821 Non-pressure chronic ulcer of other part of left lower leg limited to breakdown of skin; L97.811 Non-pressure chronic ulcer of other part of right lower leg limited to breakdown of skin; N18.4 Chronic kidney disease, stage 4 (severe); D64.9 Anemia, unspecified; Z79.01 Long term (current) use of anticoagulants; E11.9 Type 2 diabetes mellitus without complications; E87.5 Hyperkalemia; N13.9 Obstructive and reflux uropathy, unspecified; R33.9 Retention of urine, unspecified; E66.9 Obesity, unspecified; R33.8 Other retention of urine; I87.2 Venous insufficiency (chronic) (peripheral); F10.21 Alcohol dependence, in remission; Z68.39 Body mass index [BMI] 39.0-39.9, adult
CPT/HCPCS: 36415; 51701; 71045; 80048; 80076; 81001; 82077; 82962; 83735; 83880; 84100; 84132; 84439; 84443; 84484; 84550; 85025; 86140; 86850; 86900; 86901; 87086; 87186; 93005; 93971; 94761; 97165; 99284; 99285; A9270; J0613; J1170; J1940

== ENCOUNTER 2023-12-17 11:08 | Outpatient (CLI) | payer MEDICARE, SELFPAY | END 2023-12-17 11:09 | disposition home or self-care (01) | LOC: AMB 12-24 11:17 | PROVIDERS: PCP Family Medicine; Visit Provider Emergency Medicine | DX: I13.10 Hypertensive heart and chronic kidney disease without heart failure, with stage 1 through stage 4 chronic kidney disease, or unspecified chronic kidney disease (principal) | CPT/HCPCS: A0425; A0427 ==

== ENCOUNTER 2024-09-23 12:31 | Outpatient (CLI) | payer MEDICARE, SELFPAY | END 2024-09-23 12:32 | disposition home or self-care (01) | PROVIDERS: PCP Family Medicine; Visit Provider Surgery | DX: S81.802A Unspecified open wound, left lower leg, initial encounter (principal); L03.116 Cellulitis of left lower limb; W22.8XXA Striking against or struck by other objects, initial encounter; I48.20 Chronic atrial fibrillation, unspecified; I50.812 Chronic right heart failure; E08.22 Diabetes mellitus due to underlying condition with diabetic chronic kidney disease; N18.9 Chronic kidney disease, unspecified; Z79.84 Long term (current) use of oral hypoglycemic drugs; Z79.01 Long term (current) use of anticoagulants | CPT/HCPCS: 11042; 87070; G0463 ==

== ENCOUNTER 2024-09-30 13:08 | Outpatient (CLI) | payer MEDICARE, SELFPAY | END 2024-09-30 13:09 | disposition home or self-care (01) | LOC: WOUND 13:09 | PROVIDERS: PCP Family Medicine; Visit Provider Surgery | DX: S81.802A Unspecified open wound, left lower leg, initial encounter (principal); W22.8XXA Striking against or struck by other objects, initial encounter | CPT/HCPCS: 97597 ==

== ENCOUNTER 2024-10-08 09:35 | Outpatient (CLI) | payer MEDICARE, SELFPAY | END 2024-10-08 09:36 | disposition home or self-care (01) | LOC: WOUND 09:35 | PROVIDERS: PCP Family Medicine; Visit Provider Nurse Practitioner Family | DX: I87.312 Chronic venous hypertension (idiopathic) with ulcer of left lower extremity (principal); I89.0 Lymphedema, not elsewhere classified; L97.822 Non-pressure chronic ulcer of other part of left lower leg with fat layer exposed; E08.22 Diabetes mellitus due to underlying condition with diabetic chronic kidney disease; Z79.84 Long term (current) use of oral hypoglycemic drugs; N18.9 Chronic kidney disease, unspecified | CPT/HCPCS: 11042; G0463 ==

== ENCOUNTER 2024-10-15 10:15 | Outpatient (CLI) | payer MEDICARE, BC, SELFPAY | END 2024-10-15 10:16 | disposition home or self-care (01) | PROVIDERS: PCP Family Medicine; Visit Provider Nurse Practitioner Family | DX: I87.312 Chronic venous hypertension (idiopathic) with ulcer of left lower extremity (principal); I89.0 Lymphedema, not elsewhere classified; L97.822 Non-pressure chronic ulcer of other part of left lower leg with fat layer exposed; E08.22 Diabetes mellitus due to underlying condition with diabetic chronic kidney disease; N18.9 Chronic kidney disease, unspecified; Z79.84 Long term (current) use of oral hypoglycemic drugs | CPT/HCPCS: 11042 ==

== ENCOUNTER 2024-10-21 12:54 | Outpatient (CLI) | payer MEDICARE, BC, SELFPAY | END 2024-10-21 12:55 | disposition home or self-care (01) | LOC: WOUND 12:55 | PROVIDERS: PCP Family Medicine; Visit Provider Surgery | DX: I87.312 Chronic venous hypertension (idiopathic) with ulcer of left lower extremity (principal); I89.0 Lymphedema, not elsewhere classified; L97.822 Non-pressure chronic ulcer of other part of left lower leg with fat layer exposed; E08.22 Diabetes mellitus due to underlying condition with diabetic chronic kidney disease; N18.30 Chronic kidney disease, stage 3 unspecified; Z79.84 Long term (current) use of oral hypoglycemic drugs | CPT/HCPCS: 97597 ==

== ENCOUNTER 2024-10-28 12:58 | Outpatient (CLI) | payer MEDICARE, BC, SELFPAY | END 2024-10-28 12:59 | disposition home or self-care (01) | LOC: WOUND 12:58 | PROVIDERS: PCP Family Medicine; Visit Provider Surgery | DX: I87.312 Chronic venous hypertension (idiopathic) with ulcer of left lower extremity (principal); I89.0 Lymphedema, not elsewhere classified; L97.822 Non-pressure chronic ulcer of other part of left lower leg with fat layer exposed; E08.22 Diabetes mellitus due to underlying condition with diabetic chronic kidney disease; N18.30 Chronic kidney disease, stage 3 unspecified; Z79.84 Long term (current) use of oral hypoglycemic drugs | CPT/HCPCS: 97597 ==

== ENCOUNTER 2024-11-04 13:15 | Outpatient (CLI) | payer MEDICARE, BC, SELFPAY | END 2024-11-04 13:16 | disposition home or self-care (01) | LOC: WOUND 13:16 | PROVIDERS: PCP Family Medicine; Visit Provider Surgery | DX: I87.312 Chronic venous hypertension (idiopathic) with ulcer of left lower extremity (principal); I89.0 Lymphedema, not elsewhere classified; L97.821 Non-pressure chronic ulcer of other part of left lower leg limited to breakdown of skin | CPT/HCPCS: 97597 ==

== ENCOUNTER 2024-11-11 12:53 | Outpatient (CLI) | payer MEDICARE, BC, SELFPAY | END 2024-11-11 12:54 | disposition home or self-care (01) | LOC: WOUND 12:53 | PROVIDERS: PCP Family Medicine; Visit Provider Surgery | DX: I89.0 Lymphedema, not elsewhere classified (principal); I48.20 Chronic atrial fibrillation, unspecified; Z79.01 Long term (current) use of anticoagulants | CPT/HCPCS: G0463 ==

== ENCOUNTER 2025-04-20 10:28 | Inpatient (IN) | payer MEDICARE, BC, SELFPAY ==
[2025-04-20] VITALS (11 sets, daily range): BP systolic 119–135; BP diastolic 66–97; PULSE 83–103; RESP 12–20; TEMP 36.3–36.9; O2SAT 95–100; BMI 34.0
--- NOTE | 2025-04-20 | CRLHL7_ITS ---
For Patients: As a result of the Century Cures Act, medical imaging exams and procedure reports are released immediately into your electronic medical record. You may view this report before your referring provider. If you have questions, please contact your health care provider. INDICATION: Edema, redness, pain COMPARISON: 12/16/2023 TECHNIQUE: Valladares-scale, color, and duplex Doppler imaging of the bilateral lower extremity veins. Compression and augmentation attempted where anatomically and clinically feasible. FINDINGS: Laterality: Bilateral Examined veins: Common femoral, proximal deep femoral, superficial femoral, popliteal, peroneal, posterior tibial Proximal greater saphenous Technically difficult exam due to body habitus, pitting edema, and oozing wounds. The right proximal calf veins are only seen on color Doppler imaging. No thrombus identified. Otherwise, the examined veins are patent with normal grayscale appearance and normal compressibility where anatomically feasible. Normal color Doppler flow. Normal venous waveforms on duplex Doppler ultrasound with normal augmentation. Left popliteal fossa cyst measures 7.1 x 2.3 x 2.4 cm. Severe edema in both calves. IMPRESSION: No deep vein thrombosis in either lower extremity. Severely edematous lower extremities. Dictated by Denisa Vivas MD @ 04/20/2025 1:44:47 PM (Electronically Signed)
--- OUTSIDE RECORDS SUMMARY | 2025-04-20 10:33 | XMS_ITS | Clinical Summary ---
Author Organization [facility] [facility] Address [address] [place] [address] Care Team Providers Care Quality Assurance Project Manager Name Role Phone Lee Mukherjee MD Primary Care Provider Allergies Active Allergy Reactions Criticality Noted Date Comments Allopurinol Hives Low 10/08/2008 Amlodipine Other - Describe In Comment Field,Edema 02/12/2018 Edema on 5mg Lisinopril Other - Describe In Comment Field Low 05/23/2018 Increased Creatinine to 1.98 Medications folic acid 1 mg tabletIndicatio ns:Nutrition disorder Take 1 Tablet (1 mg) by mouth once daily. 90 Tablet 3 3 Active urea-alpha hydroxy acids (ATRAC-TAIN) 10-4 % creamIndication s:Venous stasis ulcer, unspecified site, unspecified ulcer stage, unspecified whether varicose veins present (HC) Apply topically to affected area(s) once daily. 4 Active white petrolatum-mine ral oil-lanolin (Eucerin) topical cream Bid 4 Active pen needle, diabetic (Pen Needle) 31 gauge x 5/16Indication s:Type 2 diabetes mellitus without complication, with long-term current use of insulin (HC) For administering insulin at home. For Lantus insulin pen 100 Each 3 4 Active lancetsIndicati ons:Type 2 diabetes mellitus without complication, with long-term current use of insulin (HC) As directed. Accu Chek Guide system lancets. Test 3 times per day. 100 Each 12 4 Active blood sugar diagnostic (Accu-Chek Guide test strips) stripIndication s:Type 2 diabetes mellitus without complication, with long-term current use of insulin (HC) TEST TWO TIMES A DAY 100 Each 3 4 Active atorvastatin (LIPITOR) 20 mg tabletIndicatio ns:Type 2 diabetes mellitus without complication, with long-term current use of insulin (HC) Take 1 Tablet (20 mg) by mouth at bedtime. 90 Tablet 3 4 Active levothyroxine (SYNTHROID) 75 mcg tabletIndicatio ns:Hypothyroidi sm (acquired) Take 1 Tablet (75 mcg) by mouth before breakfast. 90 Tablet 3 4 Active thiamine (VITAMIN B1) 100 mg tabletIndicatio ns:Nutrition disorder Take 1 Tablet (100 mg) by mouth once daily. 90 Tablet 3 4 Active torsemide (DEMADEX) 20 mg tabletIndicatio ns:Heart failure with preserved ejection fraction, unspecified HF chronicity (HC) Take 1 Tablet (20 mg) by mouth two times daily. 180 Tablet 3 4 Active magnesium chloride (Mag64) 64 mg delayed release tabletIndicatio ns:Low magnesium level TAKE ONE TABLET BY MOUTH TWICE A DAY 180 Tablet 2 4 Active ferrous sulfate (FeroSuL) 325 mg (65 mg iron) tabletIndicatio ns:Iron deficiency anemia, unspecified iron deficiency anemia type TAKE ONE TABLET BY MOUTH ONCE DAILY WITH A MEAL 60 Tablet 5 Active omeprazole 20 mg Delayed-Release capsuleIndicati ons:Iron deficiency anemia, unspecified iron deficiency anemia type Take 1 Capsule (20 mg) by mouth once daily before a meal. 90 Capsule 3 5 Active glipiZIDE extended-releas e 2.5 mg Extended-Releas e tabletIndicatio ns:Type 2 diabetes mellitus without complication, with long-term current use of insulin (HC) Take 1 Tablet (2.5 mg) by mouth once daily before a meal. 90 Tablet 1 5 Active Active Problems Problem Noted Date Diagnosed Date Type 2 diabetes mellitus wit h stage 3a chronic kidney disease, without long-term current use of insulin 01/21/2025 Stage 3b chronic kidney disease 01/21/2025 Alcohol dependence in remission 04/25/2023 Heart failure with preserved ejection fraction 0 02/15/2022 CKD (chronic kidney disease) stage 3, GFR 30-59 ml/min 03/18/2020 Chronic atrial fibrillation 04/13/2015 Obesity, unspecified 12/18/2011 Edema 12/18/2011 Gout, unspecified 09/19/2008 Unspecified essential hypertension Resolved Problems Problem Noted Date Diagnosed Date Resolved Date Pleural effusion, left 01/21/202401/21 ESRD (end stage renal disease) 12/24/2023 02/13/2024 Hematuria, gross 12/19/2023 01/21/2024 ANDREY (acute kidney injury) 12/19/2023 Gross hematuria 12/18/2023 01/21/2025 Acute renal failure (ARF) 12/18/2023 Type 2 diabetes mellitus with obesity 08/06/2023 02/13/2024 Anasarca 04/04/2023 02/13/2024 Venous stasis ulcer, unspeci fied site, unspecified ulcer stage, unspecified whether varicose veins present 03/21/2023 01/21/2025 Depression, recurrent 03/21/20232024 Obesity, morbid 03/21/2023 04/04/2023 Type 2 diabetes mellitus wit hout complication, with long-term current use of insulin 02/15/2022 02/15/2022 Type 2 diabetes mellitus wit hout complication, without long-term current use of insulin 02/15/2022 01/21/2025 Anasarca 12/19/2020 06/14/2022 Atrial fibrillation 03/08/2020 12/20/19 21 Edema 02/16/2016 02/16/2016 Anticoagulation monitoring, INR range 2-3 03/03/2014 04/30/2023 Impaired fasting glucose 12/21/200902/2022 Encounter for Long-Term (Cur rent) Use of Anticoagulants 01/14/2008 03/03/2014 Overview (07/04/2009): INR range 2.0-3.0 Impotence of organic origin 01/21/2025 Encounters Date Type Department Care Team Description 01/21/2025 9:20 AM CDT Office Visit [facility] [address] [place] [address] Lee Mukherjee MD Medicare ANNUAL (subsequent) Visit (74 year old); Medication Management (Discuss medication for gout) 01/21/2025 Travel 01/19/2025 9:45 AM CDT Orders Only [facility] [address] [place] [address] [place], [place] Lab 01/19/2025 Travel from Last 3 Months Immunizations Immunization Administration Dates Next Due AMB INFLUENZA IIV3 (AGE 65+ YRS) PF (Flu Clinic Only) 07/16/2019,07/30/2017 AMB Influenza, IIV3 (Age >=3 years)(Flu Clinic Only) 08/05/2012,08/15/2011,09/19/2010 Amb Influenza, Inact (High-d ose) (Flu Clinic Only) 07/12/2016 COVID-19 VACCINE SPIKEVAX (M ODERNA 50MCG/0.5ML) 12YO+ PFS 01/21/2025,07/23/2024,03/17/2024,08/06 COVID-19 vaccine (Moderna 100mcg/0.5mL) PF, MDV 05/10/2022,08/31/2021,01/08/2021,12/11 COVID-19 vaccine (Pfizer-Bio NTech 30mcg/0.3mL) 12YO+ BIVALENT PF, MDV 03/21/2023,09/20/2022 Hepatitis B, Unspecified 08/04/1991,02/24/1991,0 01/20/1991 Influenza, High-dose Inactivated 07/12/2016,10/0 05/2015 Influenza, IIV3 (Age >=3 years) 07/01/2013,09/19,09/16/2008 Influenza, IIV4 07/14/2014 Influenza, Inactivated AIIV4 (Age 65+ Years) Preserv Free 08/06/2023,07/03/2022,08/03/2021,06/30 Influenza, Inactivated IIV3 (Age 65+ Years) Preserv Free 07/23/2024,07/16/2018 Pneumococcal Conj 20-valent (Prevnar 20) 08/06/2023 Pneumococcal Poly,23-Valent (Pneumovax) 02/17/2019,07/14/2014 Pneumococcal conj 13-Valent (Prevnar 13) 07/21/2015 RSV, Recombinant ADJ Reconst ituted (Arexvy 120MCG/0.5mL) 08/28/2023 Td, Preservative Free (age >= 7 Years) 7 Tdap 11/19/2018,01/03/2007 Zoster (Shingrix-RZV, recombinant) 06/06/2018, Zoster (Zostavax-ZVL, live) 01/29/2013 Family History Medical History Relation Name Comments Cancer Father lung cancer d at 56, nonsmoker Cancer Mother lymphoma, at 84 Diabetes Paternal Grandmother Anesthesia Problem No Family History Cancer-colon No Family History Cancer-prostate No Family History Heart Disease No Family History Relation Name Status Comments Father Mother Paternal Grandmother Social History Tobacco Use Types Packs/Day Years Used Date Smoking Tobacco: Former Cigarettes 1 10 0 02/12/1993 - 02/12/2003 Smokeless Tobacco: Never Tobacco Cessation:Counseling Given: No Alcohol Use Standard Drinks/Week Comments Yes 0 (1 standard drink = 0.6 oz pur e alcohol) very little PHQ-2 Answer Date Recorded PHQ-2 TOTAL SCORE 0 01/21/2025 Social Connections Answer Date Recorded Do you often feel lonely or isolated from those around you? 0 01/21/2025 Financial Resource Strain Answer Date R ecorded Difficulty of Paying Living Expenses 3 01/21/2025 Difficulty of Paying Living Expenses Not on file 01/21/2025 Food Insecurity Answer Date Recorded Do you worry your food will run out before you are able to buy more? 1 01/21/2025 Transportation Needs Answer Date Record ed Does lack of transportation keep you from medica l appointments? 1 01/21/2025 Does lack of transportation keep you from work, meetings or getting things that you need? 1 01/21/2025 Housing Stability Answer Date Recorded What is your housing situation today? 1 01/21/2025 Interpersonal Safety Answer Date Record ed Are you being hit, kicked, p ushed or yelled at (see row info)? No 12/26/2023 Interpersonal Safety Abuse 12 - 18 Not on file 12/26/2023 Interpersonal Safety Ambulatory Vulnerability No t on file 12/26/2023 Utilities Answer Date Recorded Do you have trouble paying f or utilities (for example, heat, electricity, water, phone)? 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 Gender Identity Not on file Sexual Orientation Not on file Obstetrics History Last Filed Vital Signs Vital Sign Reading Time Taken Comments Blood Pressure 125/75 01/21/2025 9:48 AM CDT Pulse 70 01/21/2025 9:20 AM CDT Temperature 36.6 C (97.9 F) 12/30/2023 12:23 PM CDT Respiratory Rate 18 12/30/2023 12:2 3 PM CDT Oxygen Saturation 97% 01/21/2025 9:20 AM CDT Inhaled Oxygen Concentration - - Weight 96.1 kg (211 lb 12.8 oz) 01/21/2025 9:20 AM CDT Height 166.2 cm (5' 5.43) 01/21/2025 9:20 AM CD T Body Mass Index 34.78 01/21/2025 9:20 AM CDT Plan of Treatment Upcoming Encounters Date Type Department Care Team (Late st Contact Info) Description 07/27/2025 9:00 AM CDT Orders Only [facility] [address] [place] [address] [place], [place] 07/29/2025 9:20 AM CDT Office Visit [facility] [address] [place] [address] Lee Mukherjee MD [address] [place] [address] Health Maintenance Due Date Last Done Comments Hepatitis B series for 19+ ( 1 of 1 - Risk Dialysis 4-dose series) 08/04/1992 08/04/1991, 02/24/1991, 01/20/1991 Colonoscopy through age 75 1995 Influenza Vaccine (#1) 2025 , 08/06/2023, 07/03/2022, Additional history exists BMI (ht and wt on same day) for age 18+ 01/21/2026 01/21/2025, 07/23/2024, 03/21/2023, Additional history exists Depression screening for age 12+ 01/21/2026 01/21/2025, 03/22/2023, 03/22/2023, Additional history exists Medicare Wellness for age 65+ 01/22/2026, 03/21/2023, 02/17/2019 Tetanus booster 11/19/2028 11/19/2018, 0511/2016, 01/03/2007 Lipids for age 45-75 01/19/2030 01/19/2025, 02/11/2024, 03/19/2023, Additional history exists Zoster (shingles) series for age 50+ Completed 06/06/2018, 02/13/2018, 01/29/2013 Hepatitis C screening for ag e 18-79 Completed 02/17/2019 Pneumococcal series for age 50+ Completed 08/06/2023, 02/17/2019, 07/21/2015, Additional history exists RSV vaccine for adults or Completed 08/28/2023 AAA screening age 65-74 Completed 12/17/2023 COVID-19 vaccine series Completed 01/22/20, 07/23/2024, 03/17/2024, Additional history exists Procedures Procedure Name Priority Date/Time Associated Diagnosis Comments IRON PLUS IRON BINDING CAP Routine 01/19/2025 9:31 AM CDT Iron deficiency anemia, unspecified iron deficiency anemia type FERRITIN Routine 01/19/2025 9:31 AM CDT Iron deficiency anemia, unspecified iron deficiency anemia type HEMOGLOBIN Routine 01/19/2025 9:31 AM CDT Iron deficiency anemia, unspecified iron deficiency anemia type VITAMIN B12 Routine 01/19/2025 9:31 AM CDT Nutrition disorder FOLIC ACID Routine 01/19/2025 9:31 AM CDT Nutrition disorder LIPID PANEL W REFLEX MEASURED LDL Routine 01/19/2025 9:31 AM CDT Type 2 diabetes mellitus without complication, with long-term current use of insulin (HC) BASIC METABOLIC PANEL Routine 01/19/2025 9:31 AM CDT Type 2 diabetes mellitus without complication, with long-term current use of insulin (HC) URIC ACID Routine 01/19/2025 9:31 AM CDT Gout, unspecified cause, unspecified chronicity, unspecified site TSH WITH REFLEX Routine 01/19/2025 9:31 AM CDT Hypothyroidism (acquired) URINE ALBUMIN TO CREATININE RATIO, RANDOM Routine 01/19/2025 9:29 AM CDT Type 2 diabetes mellitus without complication, with long-term current use of insulin (HC) HEMOGLOBIN A1C MONITORING (POCT) Routine 01/19/2025 9:29 AM CDT Type 2 diabetes mellitus without complication, with long-term current use of insulin (HC) CT ABDOMEN PELVIS STONE PROTOCOL WO Routine 12/17/2023 2:50 PM GRAVITY PROSPECTING OPERATOR ANTI HCV Routine 02/17/2019 1:41 PM CDT Need for hepatitis C screening test from Last 3 Months or Most Recently Relevant to Health Maintenance Results * TSH WITH REFLEX (01/19/2025 9:31 AM CDT) TSH W/REFLEX TO FT4 3.15 0.40 - 4.50 mIU/L [facility] [place] Blood BLOOD SPECIMEN / Unknown 01/19/2025 9:31 AM CDT 01/19/2025 9:32 AM CDT Lee Mukherjee MD CHEMISTRY Final Result [employer] [facility] [address] [place] [address], [facility] [address] [place] [address] * LIPID PANEL W REFLEX MEASURED LDL (01/19/2025 9:31 AM CDT) CHOLESTEROL, TOTAL 143 <200 mg/dL [facility] HDL CHOLESTEROL 75 > OR = 40 mg/dL [facility] TRIGLYCERIDES 60 <150 mg/dL [facility] LDL-CHOLESTEROL 54 mg/dL (calc) [facility] Comment: Reference range: <100 Desirable range <100 mg/dL for primary prevention; <70 mg/dL for patients with CHD or diabetic patients with > or = 2 CHD risk factors. LDL-C is now calculated using the Mick calculation, which is a validated novel method providing better accuracy than the Friedewald equation in the estimation of LDL-C. Reynaldo ORONA et al. HARPREET. 2013;310(19): 1128-4334 (http://education.Bedloo/faq/OAW841) CHOL/HDLC RATIO 1.9 <5.0 (calc) [facility] NON HDL CHOLESTEROL 68 <130 mg/dL (calc) [facility] [place] Comment: For patients with diabetes plus 1 major ASCVD risk factor, treating to a non-HDL-C goal of <100 mg/dL (LDL-C of <70 mg/dL) is considered a therapeutic option. Blood BLOOD SPECIMEN / Unknown 01/19/2025 9:31 AM CDT 01/19/2025 9:32 AM CDT Lee Mukherjee MD CHEMISTRY Final Result [employer] [facility] [address] [place] [address], [facility] [address] [place] [address] * IRON PLUS IRON BINDING CAP (01/19/2025 9:31 AM CDT) IRON, TOTAL 80 50 - 180 mcg/dL [facility] IRON BINDING CAPACITY 265 250 - 425 mcg/dL (calc) [facility] % SATURATION 30 20 - 48 % (calc) [facility] Blood BLOOD SPECIMEN / Unknown 01/19/2025 9:31 AM CDT 01/19/2025 9:32 AM CDT us Lee Mukherjee MD CHEMISTRY Final Result Performing Organization Address [facility] Co de Phone Number [employer] [address] [address], [place] [phone] [facility] [place] [address] [place] [address] * (ABNORMAL) HEMOGLOBIN (01/19/2025 9:31 AM CDT) HEMOGLOBIN 12.3(L) 13.2 - 17.1 g/dL [facility] [place] Blood BLOOD SPECIMEN / Unknown 01/19/2025 9:31 AM CDT 01/19/2025 9:32 AM CDT us Lee Mukherjee MD HEMATOLOGY Final Result Performing Organization Address [facility] de Phone Number [employer] [address] [address], [facility] [place] [address] [place] [address] * URIC ACID (01/19/2025 9:31 AM CDT) URIC ACID 6.4 4.0 - 8.0 mg/dL [facility] Comment: Therapeutic target for gout patients: <6.0 mg/dL Blood BLOOD SPECIMEN / Unknown 01/19/2025 9:31 AM CDT 01/19/2025 9:32 AM CDT us Lee Mukherjee MD CHEMISTRY Final Result Performing Organization Address City/[facility]/ZIP Co de Phone Number [facility] [facility] [address] [place] [address], [place] [phone] [facility] [address] [place] [address] * FOLIC ACID (01/19/2025 9:31 AM CDT) FOLATE, SERUM >24.0 ng/mL [facility] [place] Comment: Reference Range Low: <3.4 Borderline: 3.4-5.4 Normal: >5.4 Blood BLOOD SPECIMEN / Unknown 01/19/2025 9:31 AM CDT 01/19/2025 9:32 AM CDT us Lee Mukherjee MD CHEMISTRY Final Result Performing Organization Address [facility]/ZIP Co de Phone Number [employer] [facility] [address] [place] [address], [place] [phone] [facility] [address] [place] [address] * FERRITIN (01/19/2025 9:31 AM CDT) Pathologist [facility] FERRITIN 178 24 - 380 ng/mL [facility] [place] Blood BLOOD SPECIMEN / Unknown 01/19/2025 9:31 AM CDT 01/19/2025 9:32 AM CDT us Lee Mukherjee MD CHEMISTRY Final Result [employer] [facility] [address] [place] [address], [place] [phone] [facility] [address] [place] [address] * VITAMIN B12 (01/19/2025 9:31 AM CDT) Pathologist [facility] VITAMIN B12 719 200 - 1,100 pg/mL [facility] Blood BLOOD SPECIMEN / Unknown 01/19/2025 9:31 AM CDT 01/19/2025 9:32 AM CDT us Lee Mukherjee MD CHEMISTRY Final Result Performing Organization Address City/[facility]/ZIP Co de Phone Number [employer] [facility] [address] [place] [address], [place] [phone] [facility] [address] * (ABNORMAL) BASIC METABOLIC PANEL (01/19/2025 9:31 AM CDT) [facility] GLUCOSE 111(H) 65 - 99 mg/dL [facility] Comment: Fasting reference interval For someone without known diabetes, a glucose value between 100 and 125 mg/dL is consistent with prediabetes and should be confirmed with a follow-up test. UREA NITROGEN (BUN) 19 7 - 25 mg/dL [facility] CREATININE 1.43(H) 0.70 - 1.28 mg/dL [facility] EGFR 51(L) > OR = 60 mL/min/1.7 3m2 [facility] BUN/CREATININE RATIO 13 6 - 22 (calc) [facility] SODIUM 140 135 - 146 mmol/L [facility] POTASSIUM 3.6 3.5 - 5.3 mmol/L [facility] CHLORIDE 100 98 - 110 mmol/L [facility] CARBON DIOXIDE 29 20 - 32 mmol/L [facility] ELECTROLYTE BALANCE 11 7 - 17 mmol/L (calc) [facility] CALCIUM 9.2 8.6 - 10.3 mg/dL [facility] Blood BLOOD SPECIMEN / Unknown 01/19/2025 9:31 AM CDT 01/19/2025 9:32 AM CDT us Lee Mukherjee MD CHEMISTRY Final Result Performing Organization Address City/[facility]/ZIP Co de Phone Number [employer] [address] [address], [place] [phone] [facility] [address] [place] [address] * URINE ALBUMIN TO CREATININE RATIO, RANDOM (01/19/2025 9:29 AM CDT) ALB RAND URINE <12.0 mg/L 01/19/2025 4:52 PM CDT [facility] CREATININE,URINE 0.34 g/L 01/20/20 4:52 PM CDT [facility] ALBUMIN TO CREATININE RATIO,RAND UR 01/19/2025 4:52 PM CDT [facility] Comment:Urine Albumin below measurement range, unable to calculate. Urine URINE SPECIMEN / Unknown Non-Blood / Unknown 01/19/2025 9:29 AM CDT 01/19/2025 9:29 AM CDT Narrative [facility] - 01/19/2025 4:52 PM CDT If Albumin to Creatinine Ratio is elevated, consider the following: Elevations seen with incipient nephropathy associated with diabetes mellitus or hypertension. Stress, exercise,hematuria, and urinary tract infection may also produce elevated results. If clinically indicated, confirm with 24 Hour Albumin to Creatinine Ratio. Lee Mukherjee MD URINE Final Result [facility] [address] [place] [address], * HEMOGLOBIN A1C MONITORING (POCT) (01/19/2025 9:29 AM CDT) POC HEMOGLOBIN A1C 5.4 <6.0 % OF TOTAL HGB [facility] Comment: Any point of care results exhibiting inconsistency with the patient's clinical status should be repeated using a different testing method. Blood BLOOD SPECIMEN / Unknown 01/19/2025 9:29 AM CDT 01/19/2025 9:30 AM CDT Lee Mukherjee MD CHEMISTRY Final Result [facility] [address] [place] [address], [facility] [address] [place] [address] * CT ABDOMEN PELVIS STONE PROTOCOL WO (12/17/2023 2:50 PM GRAVITY PROSPECTING OPERATOR) Anatomical Region Laterality Modality Abdomen, Pelvis, AORTA, LIVER, SPLEEN Computed Tomography 12/17/2023 4:58 PM GRAVITY PROSPECTING OPERATOR Narrative 12/17/2023 4:58 PM GRAVITY PROSPECTING OPERATOR For Patients: As a result of the Century Cures Act, medical imaging exams and procedure reports are released immediately into your electronic medical record. You may view this report before your referring provider. If you have questions, please contact your health care provider. Indication: Acute renal failure, hematuria Technique: Noncontrast CT of the abdomen and pelvis was obtained. Please note that all CT scans at this facility use dose modulation, iterative reconstruction, and/or weight-based dosing when appropriate to reduce radiation dose to as low as reasonably achievable. Comparison: None. Findings: Lower thorax: Small left and trace right pleural effusions with associated atelectasis. Mild chronic bilateral rib deformities. Moderate bilateral gynecomastia. Liver and biliary tree: Normal noncontrast appearance. Gallbladder: Cholelithiasis. Spleen: Normal noncontrast appearance. Pancreas: Normal noncontrast appearance. Adrenal glands: Normal noncontrast appearance. Kidneys and ureters: No hydronephrosis. No obstructing renal calculi. Gastrointestinal tract: No evidence of bowel obstruction. Normal appendix. Peritoneal cavity: Small to moderate amount of intra-abdominal ascites. Bladder: Decompressed with Farfan catheter within. Pelvic organs: Normal. Vasculature: Moderate calcification. Lymph nodes: Normal. Abdominal wall: Moderate anasarca. Musculoskeletal: Moderate multilevel degenerative changes of the visualized spine. Moderate degenerative changes of the right greater than left hips. Impression: 1. No hydronephrosis. No obstructing renal calculi. 2. Decompressed urinary bladder with Farfan catheter within. 3. Small to moderate amount of intra-abdominal ascites. Moderate anasarca. Small left and trace right pleural effusions. Fluid overload. Findings are compatible with Please note that all CT scans at this facility use dose modulation, iterative reconstruction, and/or weight-based dosing when appropriate to reduce radiation dose to as low as reasonably achievable. Dictated by Mor Goodson MD @ 12/17/2023 4:58:36 PM (Electronically Signed) Procedure Note Myron Goodson MD - 12/17/2023 For Patients: As a result of the Century Cures Act, medical imagingexams and procedure reports are released immediately into your electronicmedical record. You may view this report before your referring provider.If you have questions, please contact your health care provider. Indication: Acute renal failure, hematuria Technique: Noncontrast CT of the abdomen and pelvis was obtained. Please note that all CT scans at this facility use dose modulation,iterative reconstruction, and/or weight-based dosing when appropriate toreduce radiation dose to as low as reasonably achievable. Comparison: None. Findings: Lower thorax: Small left and trace right pleural effusions with associatedatelectasis. Mild chronic bilateral rib deformities. Moderate bilateral gynecomastia. Liver and biliary tree: Normal noncontrast appearance. Gallbladder: Cholelithiasis. Spleen: Normal noncontrast appearance. Pancreas: Normal noncontrast appearance. Adrenal glands: Normal noncontrast appearance. Kidneys and ureters: No hydronephrosis. No obstructing renal calculi. Gastrointestinal tract: No evidence of bowel obstruction. Normal appendix. Peritoneal cavity: Small to moderate amount of intra-abdominal ascites. Bladder: Decompressed with Farfan catheter within. Pelvic organs: Normal. Vasculature: Moderate calcification. Lymph nodes: Normal. Abdominal wall: Moderate anasarca. Musculoskeletal: Moderate multilevel degenerative changes of thevisualized spine. Moderate degenerative changes of the right greater than left hips. Impression: 1. No hydronephrosis. No obstructing renal calculi. 2. Decompressed urinary bladder with Farfan catheter within. 3. Small to moderate amount of intra-abdominal ascites. Moderate anasarca.Small left and trace right pleural effusions. Fluid overload. Findings arecompatible with Please note that all CT scans at this facility use dose modulation,iterative reconstruction, and/or weight-based dosing when appropriate toreduce radiation dose to as low as reasonably achievable. Dictated by Mor Goodson MD @ 12/17/2023 4:58:36 PM (Electronically Signed) us Mira NEVAREZ CT Final Result * ANTI HCV (02/17/2019 1:41 PM CDT) HEPATITIS C ANTIBODY Non-React shakir Non-React shakir 02/18/2019 12:42 AM CDT [facility] Comment:Antibodies to HCV no t detected; does not exclude the possibility of exposure to HCV. Blood BLOOD SPECIMEN / Unknown Venipuncture / Unknown 02/17/2019 1:41 PM CDT 02/17/2019 1:41 PM CDT us Lee Mukherjee MD SEND OUTS Final Result [facility] [address] [place] [address], [place] from Last 3 Months or Most Recently Relevant to Health Maintenance Insurance [facility] MEDICARE [place] ONLY MEDICARE PART B HB ONLY Advance Directives * Full Code (Latest Code Status on File) Date Activated Date Inactivated Comments 12/17/2023 12:31 PM 12/30/2023 5:15 PM Question Answer Comments Code Status Discussion: Reviewed Preferences Care Teams Quality Assurance Project Manager Relationship Specialty Start Date End Date Lee Mukherjee MD [address] [place] [address] PCP - General 05/14/06
--- OUTSIDE RECORDS SUMMARY | 2025-04-20 10:34 | XMS_ITS | Data Portability ---
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 Plan of Treatment Reminders Order Date Submit Date Provider Last Modified By Organization Details Last Modified Time Details Appointments None recorded. Lab urinalysis , dipstick 2023 024 [email or web address] 9 [facility], [address] [place] [address], Suite [facility], [place], [address], 4 11:58:33 Referral None recorded. Procedures bladder scan (PROC) 2023 024 [email or web address] 9 [facility], [address] [place] [address], [address], [place], [address], 4 11:58:30 Surgeries None recorded. Imaging None recorded. Medication Orders None recorded. Patient TargetsNo targets recorded. Patient Instructions Encounter Date Encounter Id Patient Instructions Last Modified By Organization Details Last Modified Time 02/18/2024 [id number] can follow up [place] N if further gross hematuria episodes. [email or web address] Not available 02/18/2024 12:11:03 Reason for Referral None Reported. Results Created Date Observation Date Name Description Value Unit Range Abnormal Flag Note LastModifiedBy Organization Detail LastModifiedTime 02/18/20 24 02/18/2024 bladd er scan (PROC ) Volume (in mL) 0ml Not Available [address], [place], [address], 02/18/2024 11:58:20 02/18/20 24 02/18/2024 urina lysis , dipst ick Color-Status Yellow Not Available [address], [place], [address], 02/18/2024 11:53:54 02/18/20 24 02/18/2024 urina lysis , dipst ick Clarity-Stat us Clear Not Available [address], [place], [address], 02/18/2024 11:53:54 02/18/20 24 02/18/2024 urina lysis , dipst ick Sp [place]-Stat us 1.015 Not Available [address], [place], [address], 02/18/2024 11:53:54 02/18/20 24 02/18/2024 urina lysis , dipst ick pH-Status 8.5 Not Available [address], [place], [address], 02/18/2024 11:53:54 02/18/20 24 02/18/2024 urina lysis , dipst ick Blood-Status Negati ve Not Available [address], [place], [address], 02/18/2024 11:53:54 02/18/20 24 02/18/2024 urina lysis , dipst ick Leuko-Status Negati ve Not Available [address], [place], [address], 02/18/2024 11:53:54 02/18/20 24 02/18/2024 urina lysis , dipst ick Specimen Type Voided Not Available [facility] [address], [place], [address], 02/18/2024 11:53:54 Result Notes None recorded. Problems Name Problem SNOMED Code Status Onset Date Resolution Date Notes Provider Name and Address Organization Details Recorded Time Blood in urine [id number] Active 024 Fei Li MD [address] [place] [address],[facility] [address], [place], [address] , [facility] 02/18/2024 12:10:09 Problem Notes None recorded. Procedures Surgical History Date Name Laterality Status Provider Name and Address Organization Details Recorded Time Bladder Scan completed Fei iL MD [address] [place] [address],[facility] [address], [place], [address], [facility] 02/18/2024 11:57:58 Imaging Results None recorded. Procedure Notes None recorded. Medical Equipment None Reported. Allergies No known drug allergies Medications Name Sig Start Date Stop Date Status Note LastModified by Organization Details LastModified Time carvedilol 25 mg tablet TAKE ONE TABLET BY MOUTH TWICE A DAY WITH MEALS active Not Available Not Available No t Available atorvastati n 20 mg tablet TAKE ONE TABLET BY MOUTH ONCE DAILY active Not Available Not Available No t Available torsemide 20 mg tablet TAKE TWO TABLETS BY MOUTH EVERY DAY active Not Available Not Available No t Available atenolol 100 mg tablet TAKE ONE TABLET BY MOUTH ONCE DAILY active Not Available Not Available No t Available Nystop 100,000 unit/gram topical powder APPLY TO AFFECTED AREA TWICE DAILY active Not Available Not Available No t Available prednisone 20 mg tablet TAKE TWO TABLETS BY MOUTH EVERY DAY FOR 5 DAYS 02/17 completed Not Available Not Available Not Available glipizide ER 5 mg tablet, extended release 24 hr TAKE ONE TABLET BY MOUTH ONCE DAILY BEFORE A MEAL active Not Available Not Available No t Available midodrine 5 mg tablet TAKE ONE TABLET BY MOUTH ONCE DAILY active Not Available Not Available No t Available thiamine HCl (vitamin B1) 100 mg tablet TAKE ONE TABLET BY MOUTH ONCE DAILY active Not Available Not Available No t Available Accu-Chek Softclix Lancets CHECK BLOOD GLUCOSE THREE TIMES DAILY active Not Available Not Available No t Available levothyroxi ne 75 mcg tablet TAKE ONE TABLET BY MOUTH ONCE DAILY BEFORE BREAKFAST active Not Available Not Available No t Available levothyroxi ne 50 mcg tablet TAKE ONE TABLET BY MOUTH ONCE DAILY BEFORE BREAKFAST active Not Available Not Available No t Available Mag 64 64 mg tablet,patricia yed release TAKE ONE TABLET BY MOUTH TWICE A DAY active Not Available Not Available No t Available warfarin 5 mg tablet TAKE HALF A TABLET EVERY SATURDAY. THEN TAKEN TAKE ONE TABLET BY MOUTH ONCE DAILY ALL OTHER DAYS active Not Available Not Available No t Available losartan 25 mg tablet TAKE ONE TABLET BY MOUTH ONCE DAILY active Not Available Not Available No t Available omeprazole 20 mg capsule,del ayed release TAKE ONE CAPSULE BY MOUTH ONCE DAILY BEFORE A MEAL active Not Available Not Available No t Available folic acid 1 mg tablet TAKE ONE TABLET BY MOUTH ONCE DAILY active Not Available Not Available No t Available metformin ER 500 mg tablet,exte nded release 24 hr TAKE TWO TABLETS BY MOUTH EVERY DAY AT BEDTIME active Not Available Not Available No t Available Alcohol Prep Pads FOR HOME USE active Not Available Not Available No t Available BD Ultra-Fine Short Pen Needle 31 gauge x 5/16 USE WITH LANTUS PEN ONCE DAILY active Not Available Not Available No t Available FeroSul 325 mg (65 mg iron) tablet TAKE ONE TABLET BY MOUTH ONCE DAILY WITH A MEAL active Not Available Not Available No t Available Lantus Solostar U-100 Insulin 100 unit/mL (3 mL) subcutaneou s pen INJECT 10 UNITS SUBCUTANE OUSLY ONCE DAILY active Not Available Not Available No t Available febuxostat 40 mg tablet TAKE ONE TABLET BY MOUTH EVERY MORNING active Not Available Not Available No t Available Eliquis 5 mg tablet TAKE ONE TABLET BY MOUTH TWICE A DAY active Not Available Not Available No t Available potassium chloride ER 20 mEq tablet,exte nded release TAKE 1 TABLET BY MOUTH DAILY WITH MEAL active Not Available Not Available No t Available Accu-Chek Guide test strips TEST TWO TIMES A DAY active Not Available Not Available No t Available Vitals Date Recorded Body height Body mass index (BMI) Body weight Provider Name and Address Organization Details Last Updated DateTime 02/18/2024 175.26 cm 29.2 kg/m2 28073.29 g Fei Li MD [address] [facility],[address], [place], [address], [facility] 02/18/2024 11:54:57 Social History Question Answer Notes LastModified by Organizat ion Details LastModified Time Tobacco Smoking Status Former Smoker Fei Li MD [address] [facility] [address], [place], [address], [facility] 02/18/2024 11:56:34 What Is Your Level Of Caffeine Consumption? Moderate [email or web address] Information not available 02/18/2024 When Did You Quit Smoking? 16+yearssincel astcigarette [email or web address] Information not available 02/18/2024 What Was The Date Of Your Most Recent Tobacco Screening? 02/18/2024 [email or web address] Information not available 02/18/2024 Sex: Unknown Functional Status Question Answer Note LastModified by Organization D etails LastModified Time What is your level of alcohol consumption? Moderate [email or web address] Information not available 02/18/2024 Mental Status None recorded. Family History Nothing Reported. Medical History Condition Response Diabetes N Sexually Transmitted Infection N Other N Bleeding Disorder N High Blood Pressure Y Kidney Stones N High Cholesterol Y GERD/Acid Reflux Y Heart Disease N Cancer N Lung Disease N Depression N Past Encounters Encounter ID Performer Location Encounter Start Date Encounter Closed Date Diagnosis/Indication Diagnosis SNOMED-CT Code Diagnosis ICD10 Code Diagnosis Note [id number] Fei Li MD [facility] [address] [place] [address] 02/18/2024 11:11:27 02/19/2024 08:51:22 Blood in urine 01912855 R31.9 likely due to traumatic wilson placement and/or UTI. Health Concerns Section Related Observation LastModified by Organization Detai ls LastModified Time None Recorded Concern Status LastModified by Organization Details LastModified Time None Recorded Advance Directives Directive None Recorded Payers Insurance Date Sequence Insurance Name Policy Number Policy Tracey Covered Member ID Tracey Member ID Guarantor Name 02/21/2024 1 [facility] (MEDICARE REPLACEMENT/A DVANTAGE - PPO) [id number] Javi Whiteside [id number] Javi Whiteside 02/18/2024 2 [place] [employer] [facility] Javi Whiteside [id number] Javi Whiteside 02/14/2024 2 [place] [employer] Garo Miesha [id number] Javi Whiteside 02/14/2024 1 [facility] (MEDICARE REPLACEMENT/A DVANTAGE - PPO) [id number] Javi Whiteside [id number] Javi Whiteside Notes Date Note Type Note Provider Name and Address Organization Details Recorded Time 02/18/2024 text/html follow up [facility] consult last month for hematuria after wilson placement thought due to traumatic placement and/or UTI, had CT without concerning findineg and no blood since the catheter was removed, voiding well and UA clear/PVR 0ml today. Fei Li MD [address] [facility] [address], [place], [address], [facility] 02/18/2024 12:11:31
--- NOTE | 2025-04-20 11:14 | ED.GENADULT ---
HPI - General Adult General Date Seen: 04/20/25 Chief complaint: Extremity Pain/Injury, Lower Stated complaint: swelling on both legs Time Seen by Provider: 04/20/25 11:11 History of Present Illness HPI narrative: 74-year-old male here with a history of type 2 diabetes, chronic AFib, hypertension, CHF, tricuspid regurg, history of cardiorenal syndrome with renal failure. He reports that he had swelling and pain and redness in his leg similar to this a your to ago. He was hospitalized here at [facility] and then transferred [facility]. He says he thinks he spent about a month in the hospital at [place]. Apparently he had kidney failure that required dialysis for a while but then his kidney function recovered so he is able to stop dialysis. He also saw a drawstring knotter. Since then he has apparently had more visits with Cardiology in his been told that he has a coronary artery blockage and needs a stent, but does not need a stent urgently. He says his drawstring knotter told him that he could think about getting the stent any time in the next 6-12 months. His PCP is Dr. Mukherjee, at the [facility]. Most recent visit with him was in January 2025. per that note... weight was 211lb (96.1kg) ASSESSMENT/PLAN: ? 1. Health maintenance: Latest COVID-vaccine repeated today. Otherwise up-to-date. Declines any type of colon cancer screening. ? 2. HFpEF, moderate MR and TR, atrial fibrillation: Reviewed cardiology note from September. Anticoagulation discussed. Declined LAAO. 1 year follow-up with echo recommended. Patient remains asymptomatic. ? 3. Discussion of anticoagulation: [id number] score is 3. History of significant anemia with presumed GI bleeding source, which prompted discontinuation of anticoagulation. Today we again discussed risks and benefits, and he declines. ? 4. CKD 3A: Stable with creatinine 1.43 and GFR 51. Followed by nephrology, most recent visit in September with a 6-month follow-up recommended. ? 5. Anemia: Hemoglobin now improved to 12.3. Ferritin and iron studies are normal. B12 and folic acid also normal. Has been taking his iron supplement twice daily, I recommended he decrease this to once daily. ? 6. Diabetes mellitus: A1c excellent at 5.4 on 2.5 mg of glipizide XL. Consider discontinuing this, though will continue for now. Blood pressure acceptable. LDL 54. No indication for aspirin. Non-smoker. Eye exam done in July. Urine test normal. Foot exam as above. ? 7. Hyperlipidemia on 20 mg of atorvastatin: LDL 54. ? 8. Elevated BMI: Up 11 pounds on our scale since July, without signs of fluid retention. More aggressive lifestyle measures. ? 9. Bilateral lower extremity edema: Continue compression socks and compression wraps, as well as torsemide 20 mg twice daily. ? 10. Gout with Uloric now too expensive: Uric acid 6.4. Past reaction to allopurinol (hives). Discussed options. Will discontinue Uloric and observe. Lifestyle much better now, no longer drinking beer. ? 11. Hypertension: Good control by today second measurement. ? 12. Hypothyroidism on 75 mcg of replacement: TSH 3.15. ? 13. GERD quiescent on omeprazole. ? 14. Follow-up: Nephrology in March. Primary care in 6 months. Cardiology visit in 10/06 74 y.o. male with HFpEF, moderate mitral and tricuspid regurgitation, mild pulmonary hypertension, chronic atrial fibrillation not on apixaban due to anemia of presumed GI source, T2DM, hypertension, and CKD, here for follow-up. ? He was last seen by Dr. Montana on 04/07/2024. At that time, he was feeling well, despite some persistent edema. Weight was stable at 198 lbs. ? He returns today feeling great and never felt so good. He weight 197 to 199, home BPs 120-130/70. 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 He remains without chest pain/pressure/sob, no syncope/near syncope, no orthopnea/pnd. ? He is encouraged by feeling so much better than he has in the past. He was temporarily on dialysis earlier this year. He has previously declined endoscopy for evaluation of his presumed GI bleed.Echo 12/24/2023 Final Impressions: 1. Technically limited exam. 2. Echo contrast was administered to enhance visualization of all left ventricular segments. 3. Normal LV size, mildly increased wall thickness, normal global systolic function with an estimated EF of 55 - 60%. 4. Right ventricular cavity size is mildly enlarged, global systolic RV function is mildly reduced. 5. Severely enlarged left atrium. 6. The aortic valve is sclerotic, no stenosis and no regurgitation. 7. The mitral valve is sclerotic, mild mitral regurgitation. 8. Mild-moderate tricuspid regurgitation, the estimated right ventricular systolic pressure is 41 mmHg plus right atrial pressure. Comparison Compared to prior exam report of 05/09/2023: - The right ventricular systolic function has decreased. - RV size has increased. Impression and Plan: Chronic heart failure with preserved ejection fraction Moderate mitral and tricuspid regurgitation Chronic atrial fibrillation Anemia, iron deficient (presumed GI source) Hypertension - euvolemia, continue current torsemide dosing - anemia has prevented continued use of apixaban; [id number] 3 (age, HTN, diabetes); he does not wish to consider LAAO at this time - given renal injury earlier this year, we will hold on considerations of MRA and/or SGLT2i to be readdressed in follow-up - home BP at goal, no change - discussed follow-up interval and he feels unlikely to change his mind about consideration of LAAO and is comfortable with follow-up in one year with echo at that time. Had left lower extremity DVT ultrasound in December 2023 that was negative for DVT, but did show fluid collection near the posterior knee. Most recent blood work was 12/17/2023. At that time BUN was 97, creatinine 4.3. Related Data Home Medications ?Medication ?Instructions ?Recorded ?Confirmed acetaminophen 325 mg capsule 325 mg PO QID PRN 12/16/23 04/20/25 atorvastatin 20 mg tablet 20 mg PO HS 12/16/23 04/20/25 ferrous sulfate 325 mg (65 mg 325 mg PO DAILY 12/16/23 04/20/25 iron) tablet (FeroSul) folic acid 1 mg tablet 1 mg PO DAILY 12/16/23 04/20/25 levothyroxine 75 mcg tablet 75 mcg PO QAM 12/16/23 04/20/25 magnesium chloride 64 mg 64 mg PO BID 12/16/23 04/20/25 (magnesium chloride) tablet,delayed release (Mag 64) omeprazole 20 mg capsule,delayed 20 mg PO DAILY 12/16/23 04/20/25 release thiamine HCl (vitamin B1) 100 mg 100 mg PO DAILY 12/16/23 04/20/25 tablet torsemide 20 mg tablet 20 mg PO BID 12/16/23 04/20/25 glipizide 2.5 mg tablet, extended 2.5 mg PO DAILY 04/20/25 04/20/25 release 24 hr Allergies Allergy/AdvReac Type Severity Reaction Status Date / Time allopurinol Allergy Mild Hives Verified 04/20/25 10:35 lisinopril Allergy Mild increased Verified 04/20/25 10:35 Cr amlodipine Allergy edema Verified 04/20/25 10:35 [facility] Medical History (Updated 04/20/25 @ 14:18 by Hany Mejia MD) Normocytic anemia ?D64.9 - Anemia, unspecified (ICD-10) GI bleeding ?K92.2 - Gastrointestinal hemorrhage, unspecified (ICD-10) Alcohol dependence in remission ?F10.21 - Alcohol dependence, in remission (ICD-10) Anasarca ?R60.1 - Generalized edema (ICD-10) Recurrent depression ?F33.9 - Major depressive disorder, recurrent, unspecified (ICD-10) Venous stasis ulcer ?I83.009 - Varicose veins of unspecified lower extremity with ulcer of unspecified site (ICD-10) ?L97.909 - Non-pressure chronic ulcer of unspecified part of unspecified lower leg with unspecified severity (ICD-10) Type 2 diabetes mellitus ?E11.9 - Type 2 diabetes mellitus without complications (ICD-10) Chronic atrial fibrillation ?I48.20 - Chronic atrial fibrillation, unspecified (ICD-10) Obesity ?E66.9 - Obesity, unspecified (ICD-10) Gout ?M10.9 - Gout, unspecified (ICD-10) Impotence of organic origin ?N52.9 - Male erectile dysfunction, unspecified (ICD-10) Essential hypertension ?I10 - Essential (primary) hypertension (ICD-10) Chronic kidney disease (CKD) ?N18.9 - Chronic kidney disease, unspecified (ICD-10) Moderate tricuspid regurgitation ?I07.1 - Rheumatic tricuspid insufficiency (ICD-10) Heart failure with preserved ejection fraction ?I50.30 - Unspecified diastolic (congestive) heart failure (ICD-10) POLST (Physician Orders for Life-Sustaining Treatment) ?Z78.9 - Other specified health status (ICD-10) Social History (Updated 12/16/23 @ 17:29 by Shadia Doyle MD) Narrative: Lives independently. Son, Jacob, lives nearby and checks on him and has offered to make low sodium meals for him. Uses walker. Quit tobacco use in 2002, 10 pack-year history. Drinks 1-2 alcoholic beverages daily. What is your current living situation?: I presently have a place to live Problems where you live: no known problems Problems where you live details: [facility] In the past 12 months, utilities in danger of being shut off: no In past 12 months, lack of transportation kept you from medical appts, meetings, work, or getting things needed for daily living: no In the past 12 mos, have been you worried that your food would run out before you had money to buy more?: never true In the past 12 mos, the food you bought just didn't last and you didn't have money to buy more?: never true Highest level of school completed/degree received: GED or equivalent Smoking Status: Never smoker How often do you have a drink containing alcohol: 4 or more times a week Alcohol type: hard liquor How many standard drinks containing alcohol do you have on a typical day: 3 or 4 How often do you have six or more drinks on one occasion: Less than monthly AUDIT-C Alcohol total score: 6 Non-prescribed substance use: denies use Caffeine: Yes How often does anyone, including family, friends and others, physically hurt you: never How often does anyone, including family, friends and others, insult or talk down to you: never How often does anyone, including family, friends and others, threaten you with harm: never How often does anyone, including family, friends and others, scream or curse at you: never service: No Exam Narrative: Exam Narrative: Constitutional: Appears well-developed and well-nourished. Alert. Sitting up in a chair. He is a somewhat vague historian. His son is attentively with him and at his side. He came to the ER today with his son. His son has been hurting him to come to the doctor for a few weeks but he has been refusing up until now. The reason my came today is because his legs have really started to hurt over the past couple of days. Non toxic. HENT: Head: Atraumatic. Nose: Nose normal. Mouth/Throat: Oral mucosa is clear and moist. no trismus. Pharynx normal. Tonsils symmetric. No tonsillar enlargement, erythema, or exudate. Eyes: Conjunctivae normal. EOM normal. Pupils equal, round, and reactive to light. No scleral icterus. Neck: Normal range of motion. Neck supple. No tracheal deviation present. No JVD Cardiovascular: Irregularly irregular rhythm. No gallop. No friction rub. No murmur heard. Symmetric radial artery pulses . He has significant peripheral edema in both of his feet but I am able to palpate PT pulses bilaterally. He has brisk cap refill in both feet. Skin of the left foot is markedly warmer than the right foot. Pulmonary/Chest: Effort normal. No stridor. No respiratory distress. No wheezes. No rales. No rhonchi . No tenderness. Abdominal: Soft. No distension. No mass. No tenderness. No rebound. No guarding. Musculoskeletal: RUE: Normal range of motion. No tenderness. No deformity LUE: Normal range of motion. No tenderness. No deformity RLE: Normal range of motion. No deformity LLE: Normal range of motion. No tenderness. No deformity The patient has significant 3+ pitting edema in both of his lower extremities from the toes all the way up to the thighs. There is also some fairly dark red erythema and hyperpigmentation of the skin of both of his lower legs essentially from the knee down to the feet. The upper edge of this redness is fairly well demarcated. There is so much edema in both of his legs that he has weeping clear serous fluid from the skin. There is really not any big ulcers. No purulent drainage. He is tender to palpation on both of his legs but is more tender on the left leg. No definite crepitus or fluctuance. The skin of the left silva and dorsum left foot is palpably warmer than the right leg, suspicious for infection. Lymph: No ascending lymphangitis in the thighs. Neurological: Alert and oriented to person, place, and time. Normal strength. CN II-VII intact. No sensory deficit. GCS eye subscore is 4. GCS verbal subscore is 5. GCS motor subscore is 6. Normal coordination Skin: Skin is warm and dry. No rash noted. No pallor. Normal capillary refill. Psychiatric: Normal mood. Normal affect. Const: Vital Signs, click to edit/add: Vital Signs - 24 hr 04/20/25 10:35 04/20/25 11:45 04/20/25 13:38 Temperature 97.3 F L Pulse Rate 83 Pulse Rate [Pulse Oximeter] 95 Respiratory Rate 20 Blood Pressure 123/68 Blood Pressure [Ri ght Upper Arm] 130/84 Pulse Oximetry 100 98 99 Oxygen Delivery Me thod Room Air 04/20/25 13:45 04/20/25 14:02 04/20/25 14:30 Temperature Pulse Rate 89 89 94 Pulse Rate [Pulse Oximeter] Respiratory Rate 12 12 16 Blood Pressure 122/93 H Blood Pressure [Ri ght Upper Arm] Pulse Oximetry 97 98 95 Oxygen Delivery Me thod 04/20/25 15:02 Temperature 98.4 F Pulse Rate 103 H Pulse Rate [Pulse Oximeter] Respiratory Rate 17 Blood Pressure 119/97 H Blood Pressure [Ri ght Upper Arm] Pulse Oximetry 98 Oxygen Delivery Me thod Course Course ED Course: Recheck-after Dilaudid was able to the sit with his feet up in the bedside chair. He did required additional dose of Dilaudid because pain came back in his legs. Vital Signs Vital signs: Initial Vital Signs Temperature 97.3 F L 04/20/25 10:35 Temperature Source Temporal Artery Scan 04/20/25 10:35 Pulse Rate 95 04/20/25 10:35 Respiratory Rate 20 04/20/25 10:35 Blood Pressure 130/84 04/20/25 10:35 Blood Pressure Mean 99 04/20/25 10:35 Blood Pressure Position Sitting 04/20/25 10:35 Pulse Oximetry 100 04/20/25 10:35 Oxygen Delivery Method Room Air 04/20/25 10:35 Vital Signs Temperature 97.3 F L 04/20/25 10:35 Pulse Rate 95 04/20/25 10:35 Respiratory Rate 20 04/20/25 10:35 Blood Pressure 130/84 04/20/25 10:35 Pulse Oximetry 100 04/20/25 10:35 Oxygen Delivery Method Room Air 04/20/25 10:35 Temperature 98.4 F 04/20/25 15:02 Pulse Rate 103 H 04/20/25 15:02 Respiratory Rate 17 04/20/25 15:02 Blood Pressure 119/97 H 04/20/25 15:02 Pulse Oximetry 98 04/20/25 15:02 Oxygen Delivery Method Room Air 04/20/25 10:35 Medications Administered Medications: Generic Name Dose Route Start Last Admin Trade Name Freq PRN Reason Stop Dose Admin Hydromorphone HCl 0.5 mg 04/20/25 11:42 04/20/25 14:53 Hydromorphone 0.5 Mg/0.5 Ml Inj IVP 0.5 mg Q1H PRN Administration Pain Discontinued Medications Generic Name Dose Route Start Last Admin Trade Name Andreq PRN Reason Stop Dose Admin Furosemide 80 mg 04/20/25 14:25 04/20/25 14:54 Furosemide 10 Mg/Ml Inj IVP 04/20/25 14:26 80 mg ONCE ONE Administration Cefazolin Sodium 1 gm/ Sodium 100 mls @ 200 mls/hr 04/20/25 13:20 04/20/25 14:18 Chloride IVPB 04/20/25 13:21 Infused ONCE ONE Infusion Ondansetron HCl 4 mg 04/20/25 11:42 04/20/25 12:30 Ondansetron 2 Mg/Ml Inj IVP 04/20/25 11:43 4 mg ONCE ONE Administration Medical Decision Making [facility] Narrative Medical decision making narrative: Pleasant 74-year-old gentleman with a complex past medical history presents to the ER today with his son. He has had about 3 weeks of progressively worsening bilateral lower extremity edema there is gotten so swollen that he is not able to wear his compression stockings, or his regular stockings, and now is wearing his shoes unlaced. In that contacts, he is now developing fairly severe bilateral lower extremity pain, in particular in the left leg, that got worsened overnight. he does have significant erythema of both of his legs. Some of this erythema may be chronic due to his fluid retention. However, based on exam alone, it would be impossible to completely rule out the presence of in the cellulitis . Although he is not febrile, he definitely has asymmetric warmth of the left foot and lower extremity suggestive for cellulitis. White count is 21. Will start on IV antibiotics (Ancef, he has no history of MRSA to my knowledge.) No exam evidence for abscess or necrotizing infection. EKG shows atrial fibrillation, which is chronic. He is not on anticoagulation. Heart rate is normal. Blood pressure is normal. No evidence for septic shock. DVT ultrasound is negative. He does have a known history of acute renal failure requiring dialysis in the past and apparently that was associated with the last time his legs were swollen. Baseline creatinine was 1.43 in January at PCP office. It has worsened up to 2.5 on labs today. He is making urine and urinalysis is normal. Will require hospitalization for diuresis to get the fluid out of his legs, IV antibiotics for cellulitis. In discussion with our hospitalist we agreed to give him 80 mg of Lasix IV while here in the ER. Bedside ultrasound shows no evidence for pericardial effusion, as a result of, or cause of, his acute kidney injury. BNP is mildly elevated at 2500 but chest x-ray is generally clear save for a small pleural effusion. No evidence for pulmonary edema, which fits with the patient's absence of shortness of breath. Patient will be hospitalized here in [place] for diuresis to get the fluid out of his legs while monitoring his kidney function. Also IV antibiotics for cellulitis in his left lower extremity. Will require monitoring. If condition worsens or kidney function worsens, may require transfer to the [facility]. Patient and his son are aware of this but are strongly favor of staying here in [place]. They do not want to transfer if they do not have to. Patient is graciously accepted for admission by Dr. Doyle. Lab Data Labs: Lab Results 04/20/25 04/20/25 04/20/25 Range/Units 11:55 12:20 13:05 WBC 21.50 H (4.50-11.00) K/uL RBC 4.88 (4.30-5.90) m/uL Hgb 13.4 L (13.5-17.5) gm/dL Hct 41.3 (37.0-53.0) % MCV 85 (80-100) fL MCH 28 (26-34) pg MCHC 32 (32-36) gm/dL RDW Coeff of Royal 16.2 H (11.5-15.5) % Plt Count 378 (140-440) K/uL Neut % (Auto) 88.6 H (42.0-72.0) % Lymph % (Auto) 2.5 L (20-44) % Ogle % (Auto) 8.4 (0.0-11.0) % Eos % (Auto) 0.0 (0.0-7.0) % Baso % (Auto) 0.0 (0.0-3.0) % Neut # (Auto) 19.00 H (1.7-7.0) K/uL Lymph # (Auto) 0.50 L (0.90-2.90) K/uL Ogle # (Auto) 1.80 H (0.00-0.90) K/UL Eos # (Auto) 0.00 (0.00-0.50) K/uL Baso # (Auto) 0.00 (0.00-0.30) K/uL Abs Immat Gran (auto) 0.10 (0.00-0.30) K/uL Imm/Tot Granulo (auto) 0.5 % Sodium 125 L (135-149) mmol/L Potassium 5.3 H (3.6-5.1) mmol/L Chloride 92 L (96-114) mmol/L Carbon Dioxide 21 (20-32) mmol/L Anion Gap 12 (7-15) mEq/L BUN 57 H (7-30) mg/dL Creatinine 2.5 H (0.5-1.5) mg/dL Estimated GFR 26 ml/min Glucose 99 (60-115) mg/dL Calcium 9.5 (8.4-10.6) mg/dL Troponin I 0.02 (0.01-0.04) ng/mL NT-Pro-B Natriuret Pep 2510 H (See Note) pg/mL Urine Color Yellow (Yellow) Urine Appearance Clear (Clear) Urine pH 5.5 (5.0-8.5) Ur Specific [place] 1.015 (1.000-1.030) Urine Protein Negative (Negative) Urine Glucose (UA) Negative (Negative) Urine Ketones Negative (Negative) Urine Blood Trace-intact A (Negative) Urine Nitrite Negative (Negative) Urine Bilirubin Negative (Negative) Urine Urobilinogen 0.2 (0.2-1.0) Ur Leukocyte Esterase Negative (Negative) Urine RBC 0-2 (0-2) Urine WBC 0-2 (0-5) Ur Squamous Epith Cells None (None-Few) Urine Bacteria None (None) Imaging Data US venous Jose LE: Attestation: I have reviewed the pertinent imaging results. Radiologist's impression: IMPRESSION: No deep vein thrombosis in either lower extremity. Severely edematous lower extremities. Chest x-ray: Attestation: I have reviewed the pertinent imaging results. Radiologist's impression: Findings/Impression: Cardiovascular and mediastinum: Marked globular cardiomegaly suggesting a cardiomyopathy although a pericardial effusion would not be excluded. Lungs and pleural space: Small left pleural effusion with left basilar airspace disease consistent with atelectasis or pneumonia. Right lung clear. ECG Data Attestation: I personally reviewed and interpreted this ECG as follows: Interpretation: Atrial fibrillation Rate 93 Normal QRS axis. right bundle-branch block No pathologic Q-waves Nonspecific T-wave flattening. No ST segment elevation or depression. QTC 44. Discharge Plan Discharge Clinical Impression: Cellulitis, Edema, peripheral, ANDREY (acute kidney injury) Prescriptions: No Action acetaminophen 325 mg capsule 325 mg PO QID PRN atorvastatin 20 mg tablet 20 mg PO HS torsemide 20 mg tablet 20 mg PO BID thiamine HCl (vitamin B1) 100 mg tablet 100 mg PO DAILY levothyroxine 75 mcg tablet 75 mcg PO QAM ferrous sulfate [FeroSul] 325 mg (65 mg iron) tablet 325 mg PO DAILY omeprazole 20 mg capsule,delayed release(DR/EC) 20 mg PO DAILY folic acid 1 mg tablet 1 mg PO DAILY magnesium chloride [Mag 64] 64 mg tablet,delayed release (DR/EC) 64 mg PO BID glipizide 2.5 mg tablet extended release 24hr 2.5 mg PO DAILY Follow Up/Referrals: Lee Mukherjee MD [Primary Care Provider, Family Practice] Procedures Ultrasound Cardiac exam #1: Anatomical areas examined: parasternal long Indications: other (Acute kidney injury, peripheral edema, evaluate for pericardial effusion.) Exam type: limited transthoracic echocardiogram Findings: pericardial effusion (size) (No pericardial effusion) Impression: negative exam
--- NOTE | 2025-04-20 11:43 | CRLHL7_ITS ---
For Patients: As a result of the Century Cures Act, medical imaging exams and procedure reports are released immediately into your electronic medical record. You may view this report before your referring provider. If you have questions, please contact your health care provider. Indication: Peripheral edema Technique: Chest 1 view Comparison: None Findings/Impression: Cardiovascular and mediastinum: Marked globular cardiomegaly suggesting a cardiomyopathy although a pericardial effusion would not be excluded. Lungs and pleural space: Small left pleural effusion with left basilar airspace disease consistent with atelectasis or pneumonia. Right lung clear. Bones and soft tissues: No acute findings. Dictated by Rajan Kwan MD @ 04/20/2025 1:43:21 PM (Electronically Signed)
[2025-04-20 12:15] LABS: Hematocrit 41.3 % (37.0-53.0); Hemoglobin* 13.4 gm/dL (13.5-17.5); Immature Granulocytes Abs Auto 0.10 K/uL (0.00-0.30); Immature Granulocytes Pct Auto 0.5 %; Mean Corpuscular HGB Conc 32 gm/dL (32-36); Mean Corpuscular Hemoglobin 28 pg (26-34); Mean Corpuscular Volume 85 fL (80-100); RDW Coefficient of Variation % 16.2 % (11.5-15.5); Red Blood Count 4.88 m/uL (4.30-5.90); White Blood Count* 21.50 K/uL (4.50-11.00)
[2025-04-20 12:21] LABS: Lymphocytes Absolute Auto 0.50 K/uL (0.90-2.90); Slide Review Reflex No
[2025-04-20] MEDS: ONDANSETRON 2 MG/ML inj 4 MG IVP (12:30)
[2025-04-20 12:42] LABS: Appearance Urine Clear (Clear)
[2025-04-20 13:23] LABS: Chloride* 92 mmol/L (96-114)
[2025-04-20 13:24] LABS: Potassium* 5.3 mmol/L (3.6-5.1); Sodium* 125 mmol/L (135-149)
[2025-04-20 13:27] LABS: Anion Gap 12 mEq/L (7-15); Blood Urea Nitrogen* 57 mg/dL (7-30); Calcium* 9.5 mg/dL (8.4-10.6); Carbon Dioxide* 21 mmol/L (20-32); Creatinine* 2.5 mg/dL (0.5-1.5); Estimated Glomerular Filt Rate 26 ml/min; Glucose* 99 mg/dL (60-115)
[2025-04-20 13:41] LABS: NT Pro B Type NatriureticPept* 2510 pg/mL (See Note)
[2025-04-20] MEDS: CEFAZOLIN 1 GM in 0.9 % SODIUM CHLORIDE Mini-bag 100 ML IVPB ×2 (13:42→21:44)
[2025-04-20] MEDS: FUROSEMIDE 10 MG/ML inj 80 MG IVP (14:54)
--- NOTE | 2025-04-20 17:52 | PM.IMHP1 ---
Assessment and Plan Assessment and plan (1) Cellulitis: Problem comment: - LLE - Suspect due to loss of skin integrity from massive edema and weeping - Treat with Ancef, renally dosed - Consult wound care - patient has elevated WBC and elevated HR, will check lactate. I do not think he is septic. I think his HR is elevated due to afib. He does not take medication for rate control due to h/o bradycardia on coreg Status: Acute (2) Leukocytosis: Problem comment: suspect due to cellulitis Status: Acute (3) Edema, peripheral: Problem comment: - Bilateral, L worse than R. LLE US negative for DVT - Diurese, elevate, consult OT and wound care - lymphedema wraps Status: Acute (4) Acute on chronic heart failure: Problem comment: - HFpEF, most recent echo was 12/24/23 which showed an EF of 55-60%. Repeat ECHO. - Admit for diuresis. I explained to the patient that renal failure is likely due to heart failure and will likely improve some with diuresis, but there is also a chance that it may worsen and he may need dialysis. Monitor I/Os and daily weights. Status: Acute (5) ANDREY (acute kidney injury): Problem comment: - Suspect cardiorenal syndrome. Could be urinary retention. Check PVR. Diurese and monitor. I spoke with patient and his son about the potential need for dialysis again if renal function worsens with diuresis. Patient is unsure if he would want to do that again because it was so intense and time consuming. Status: Acute (6) Cardiorenal syndrome with renal failure: Status: Suspected (7) Hyponatremia: Problem comment: Suspect related to volume overload/HF exacerbation. Start diuresis, recheck sodium in a few hours. Status: Acute (8) Hyperkalemia: Problem comment: - EKG does not show any effect of hyperkalemia. - mildly elevated. Will likely improve sufficiently with diureses. Monitor on telemetry, recheck K in am. Status: Acute (9) Normocytic anemia: Problem comment: - likely multifactorial due to h/o GI bleed, CKD Status: Chronic (10) Type 2 diabetes mellitus: Problem comment: - continue glipizide, start ISS Status: Chronic (11) Essential hypertension: Problem comment: - not on antihypertension medication other than torsemide, will be giving lasix here. Monitor. Status: Chronic (12) Chronic atrial fibrillation: Problem comment: - h/o bradycardia on coreg, has not been on any rate control as outpatient. Monitor on tele. - Eliquis discontinued last year due to h/o GI bleeding, anemia. PCP has recommended restarting it, patient declined. Status: Chronic (13) Moderate tricuspid regurgitation: Problem comment: 05/09/2023 RVSP 44 mmHg + RAP Status: Chronic Total Time Spent Total Time Spent: Time spent: Today I spent 75 minutes seeing the patient, discussing the patient with ER staff, reviewing Expanse and EPIC notes/diagnostics, discussing the care plan with our care team that includes social work, PT/OT, pharmacy, RT, snf and documenting my impressions and plan in the medical record. MEDICAL NECESSITY FOR HOSPITALIZATION Anticipated midnights in the hospital: [2-3] Admitting diagnosis: [Aspiration Pneumonia] Risk of morbidity and mortality: [high] Acuity is characterized as high and reflected in: [The patient has had a previous stroke and has known swallowing difficulty. Patient has a history of COPD and chronic hypoxic respiratory failure. These 2 comorbidities specifically would increase the risk during treatment and potentially prolong treatment length.] This patient will require hospital services as outlined in the assessment and plan in order to stabilize and be safely discharged to a lower level of care. Because of the risk and acuity as described above, this patient cannot be managed at a lower level of care. LENGTH OF STAY: 2 IP ? Anticipated LOS>2 midnights due to acuity of clinical presentation requiring inpatient level of care Hospitalist- H&P: HPI History of Present Illness Time Seen by Provider: 16:30 Date Seen: 04/20/25 Chief complaint: swelling on both legs Narrative: Javi Whiteside is a 74 year old male with a history of chronic kidney disease stage 3, obesity, chronic lower extremity edema, heart failure with preserved ejection fraction, hypertension, type 2 diabetes, chronic atrial fibrillation for which he is not on anticoagulation due to history of GI bleeding, and moderate tricuspid regurgitation who presented through the emergency department for concerns of worsening lower extremity edema. His son, Fei, is with him today and helps to give a history. He tells me that his symptoms started somewhere around 3-4 weeks ago when his legs gradually became more swollen to the point where he could no longer put them up and so he would sleep sitting in the chair. Around that time he also became more short of breath and that lasted for a few days and then seemed to resolve. Although when we actually talk about it further, he has actually been doing a lot less and would still likely be short of breath if he were doing similar activities to what he would able to do to 4 weeks ago. In the last 3-4 nights he has not been sleeping well although he cannot tell me why. He notes that his left leg has become more painful. Both legs have been weak being and he has had a few injuries to his legs, especially on the left which do not seem to be healing very well lately. He [facility] with [facility]. He had a similar presentation a year ago for which he was admitted to the hospital, but had worsening renal function with diuresis. Was transferred to [facility] and required 13 weeks of dialysis. His renal function did recover and he was able to stop dialysis. Since then he has been following with a jigmaker and baggage handler as well as his primary care provider. He was told that he has a coronary artery blockage and would benefit from a stent, but could do that any time within the next year. Review of Systems Status of ROS: Reports: 10 or more systems reviewed and unremarkable except as noted in History and below Medical Decision Making Medical Decision Making Code Status: FULL CODE Has patient completed a Health Care Directive: No During This Stay, Who Would You Like To Make Decisions For You In The Event You Are Unable To Make Them For Yourself?: SonFei [phone] Relevant situational information: He is unsure if he would want dialysis again. [facility] Medical History (Updated 04/20/25 @ 23:32 by Shadia Doyle MD) Acute renal insufficiency ?N28.9 - Disorder of kidney and ureter, unspecified (ICD-10) Edema of left lower extremity ?R60.0 - Localized edema (ICD-10) Normocytic anemia ?D64.9 - Anemia, unspecified (ICD-10) GI bleeding ?K92.2 - Gastrointestinal hemorrhage, unspecified (ICD-10) Alcohol dependence in remission ?F10.21 - Alcohol dependence, in remission (ICD-10) Anasarca ?R60.1 - Generalized edema (ICD-10) Recurrent depression ?F33.9 - Major depressive disorder, recurrent, unspecified (ICD-10) Venous stasis ulcer ?I83.009 - Varicose veins of unspecified lower extremity with ulcer of unspecified site (ICD-10) ?L97.909 - Non-pressure chronic ulcer of unspecified part of unspecified lower leg with unspecified severity (ICD-10) Type 2 diabetes mellitus ?E11.9 - Type 2 diabetes mellitus without complications (ICD-10) Chronic atrial fibrillation ?I48.20 - Chronic atrial fibrillation, unspecified (ICD-10) Obesity ?E66.9 - Obesity, unspecified (ICD-10) Gout ?M10.9 - Gout, unspecified (ICD-10) Impotence of organic origin ?N52.9 - Male erectile dysfunction, unspecified (ICD-10) Essential hypertension ?I10 - Essential (primary) hypertension (ICD-10) Chronic kidney disease (CKD) ?N18.9 - Chronic kidney disease, unspecified (ICD-10) Moderate tricuspid regurgitation ?I07.1 - Rheumatic tricuspid insufficiency (ICD-10) Heart failure with preserved ejection fraction ?I50.30 - Unspecified diastolic (congestive) heart failure (ICD-10) POLST (Physician Orders for Life-Sustaining Treatment) ?Z78.9 - Other specified health status (ICD-10) Social History Narrative: Lives independently. Son, Jacob, lives nearby and checks on him and has offered to make low sodium meals for him. Uses walker. Quit tobacco use in 2002, 10 pack-year history. Drinks 1-2 alcoholic beverages daily. What is your current living situation?: I presently have a place to live Problems where you live: no known problems Problems where you live details: No In the past 12 months, utilities in danger of being shut off: no In past 12 months, lack of transportation kept you from medical appts, meetings, work, or getting things needed for daily living: no In the past 12 mos, have been you worried that your food would run out before you had money to buy more?: never true In the past 12 mos, the food you bought just didn't last and you didn't have money to buy more?: never true Highest level of school completed/degree received: 12th grade, no diploma Smoking Status: Former smoker Do you use any of these nicotine containing products: None Second hand tobacco smoke exposure: No How often do you have a drink containing alcohol: monthly or less Alcohol type: hard liquor How many standard drinks containing alcohol do you have on a typical day: 1 or 2 How often do you have six or more drinks on one occasion: Never AUDIT-C Alcohol total score: 1 Non-prescribed substance use: denies use Caffeine: Yes (coffee) How often does anyone, including family, friends and others, physically hurt you: never How often does anyone, including family, friends and others, insult or talk down to you: never How often does anyone, including family, friends and others, threaten you with harm: never How often does anyone, including family, friends and others, scream or curse at you: never service: Yes Meds Home Medications and Allergies Home Medications ?Medication ?Instructions ?Recorded ?Confirmed ?Type acetaminophen 325 mg capsule 325 mg PO QID PRN 12/16/23 04/20/25 History atorvastatin 20 mg tablet 20 mg PO HS 12/16/23 04/20/25 History ferrous sulfate 325 mg (65 mg 325 mg PO DAILY 12/16/23 04/20/25 History iron) tablet (FeroSul) folic acid 1 mg tablet 1 mg PO DAILY 12/16/23 04/20/25 History levothyroxine 75 mcg tablet 75 mcg PO QAM 12/16/23 04/20/25 History magnesium chloride 64 mg 64 mg PO BID 12/16/23 04/20/25 History (magnesium chloride) tablet,delayed release (Mag 64) omeprazole 20 mg capsule,delayed 20 mg PO DAILY 12/16/23 04/20/25 History release thiamine HCl (vitamin B1) 100 mg 100 mg PO DAILY 12/16/23 04/20/25 History tablet torsemide 20 mg tablet 20 mg PO BID 12/16/23 04/20/25 History glipizide 2.5 mg tablet, extended 2.5 mg PO DAILY 04/20/25 04/20/25 History release 24 hr Allergies Allergy/AdvReac Type Severity Reaction Status Date / Time allopurinol Allergy Mild Hives Verified 04/20/25 10:35 lisinopril Allergy Mild increased Verified 04/20/25 10:35 Cr amlodipine Allergy edema Verified 04/20/25 10:35 Exam Narrative: Exam Narrative: General: No acute distress. Sleepy, arousable, oriented x3. Nods off while giving history. He tells me it is his usual nap time. Morbidly obese. HEENT: Normocephalic atraumatic, pupils equally round and reactive to light and accommodation. Oropharynx clear. Mucous membranes are moist. No cervical lymphadenopathy, thyromegaly or carotid bruits. JVD present at 30?. Hepatic jugular reflux is present. Cardiovascular: Irregularly irregular. No murmurs, gallops, or rubs. Chest: No increased work of breathing. Bibasilar crackles, no wheezes. Abdomen: Bowel sounds present. Soft, nondistended, nontender. No hepatosplenomegaly or masses. Extremities: Massive greater than 4+ bilateral lower extremity edema, legs are weepy and erythematous, left more than right. Left lateral lower leg and foot are warm and tender to the touch. There is a dime-sized divit in his right silva is the same color as the surrounding tissue and without drainage. There is a similarly sized break in the skin on the left chin that has several folds of what appear to be white skin tissue in it, this is also without drainage or bleeding or erythema. There is a large patch of dark swelling on the posterior left calf that is mildly tender to palpation. Patient notes that he had a hematoma there a week ago that has since flattened. Skin: No jaundice, no pallor. Neuro: Grossly intact. No focal deficits. Const: Vital Signs, click to edit/add: Vital Signs - 24 hr 04/20/25 10:35 04/20/25 11:45 04/20/25 13:38 Temperature 97.3 F L Pulse Rate 83 Pulse Rate [Pulse Oximeter] 95 Respiratory Rate 20 Blood Pressure 123/68 Blood Pressure [Ri ght Upper Arm] 130/84 Pulse Oximetry 100 98 99 Oxygen Delivery Me thod Room Air 04/20/25 13:45 04/20/25 14:02 04/20/25 14:30 Temperature Pulse Rate 89 89 94 Pulse Rate [Pulse Oximeter] Respiratory Rate 12 12 16 Blood Pressure 122/93 H Blood Pressure [Ri ght Upper Arm] Pulse Oximetry 97 98 95 Oxygen Delivery Me thod 04/20/25 15:02 Temperature 98.4 F Pulse Rate 103 H Pulse Rate [Pulse Oximeter] Respiratory Rate 17 Blood Pressure 119/97 H Blood Pressure [Ri ght Upper Arm] Pulse Oximetry 98 Oxygen Delivery Me thod Hospitalist - H&P: Result Labs Labs: Short CBC 04/20/25 Range/Units 11:55 WBC 21.50 H (4.50-11.00) K/uL Hgb 13.4 L (13.5-17.5) gm/dL Hct 41.3 (37.0-53.0) % Plt Count 378 (140-440) K/uL BMP 04/20/25 13:05 Sodium 125 L Potassium 5.3 H Chloride 92 L Carbon Dioxide 21 BUN 57 H Creatinine 2.5 H Glucose 99 Calcium 9.5 Cardiac Enzymes 04/20/25 Range/Units 13:05 Troponin I 0.02 (0.01-0.04) ng/mL Urine 04/20/25 Range/Units 12:20 Urine Color Yellow (Yellow) Urine Appearance Clear (Clear) Urine pH 5.5 (5.0-8.5) Ur Specific [place] 1.015 (1.000-1.030) Urine Protein Negative (Negative) Urine Glucose (UA) Negative (Negative) 04/20/2025 EKG: Atrial fibrillation, 93 beats per minute, right bundle-branch block. Ordering Physician: Hany Mejia M.D. Date of Service: 04/20/25 Procedure(s): US venous LE BI Accession Number(s): [id number] cc: Lee Mukherjee M.D.; Hany Mejia M.D.~ For Patients: As a result of the Century Cures Act, medical imaging exams and procedure reports are released immediately into your electronic medical record. You may view this report before your referring provider. If you have questions, please contact your health care provider. INDICATION: Edema, redness, pain COMPARISON: 12/16/2023 TECHNIQUE: Valladares-scale, color, and duplex Doppler imaging of the bilateral lower extremity veins. Compression and augmentation attempted where anatomically and clinically feasible. FINDINGS: Laterality: Bilateral Examined veins: Common femoral, proximal deep femoral, superficial femoral, popliteal, peroneal, posterior tibial Proximal greater saphenous Technically difficult exam due to body habitus, pitting edema, and oozing wounds. The right proximal calf veins are only seen on color Doppler imaging. No thrombus identified. Otherwise, the examined veins are patent with normal grayscale appearance and normal compressibility where anatomically feasible. Normal color Doppler flow. Normal venous waveforms on duplex Doppler ultrasound with normal augmentation. Left popliteal fossa cyst measures 7.1 x 2.3 x 2.4 cm. Severe edema in both calves. IMPRESSION: No deep vein thrombosis in either lower extremity. Severely edematous lower extremities. Dictated by Denisa Vivas MD @ 04/20/2025 1:44:47 PM (Electronically Signed) Ordering Physician: Hany Mejia M.D. Date of Service: 04/20/25 Procedure(s): XR chest 1V portable Accession Number(s): [id number] cc: Lee Mukherjee M.D.; Hany Mejia M.D.~ For Patients: As a result of the Cures Act, medical imaging exams and procedure reports are released immediately into your electronic medical record. You may view this report before your referring provider. If you have questions, please contact your health care provider. Indication: Peripheral edema Technique: Chest 1 view Comparison: None Findings/Impression: Cardiovascular and mediastinum: Marked globular cardiomegaly suggesting a cardiomyopathy although a pericardial effusion would not be excluded. Lungs and pleural space: Small left pleural effusion with left basilar airspace disease consistent with atelectasis or pneumonia. Right lung clear. Bones and soft tissues: No acute findings. Dictated by Rajan Kwan MD @ 04/20/2025 1:43:21 PM (Electronically Signed)
[2025-04-20 18:10] LABS: Lactate* 2.5 mmol/L (0.5-1.9)
--- NOTE | 2025-04-20 22:15 | W.PM.CROSSCO ---
Subjective Subjective Time Seen by Provider: 22:15 Date Seen: 04/20/25 Principal diagnosis: ANDREY, LE edema, LLE cellulitis, sepsis Interval history: C/o leg pain, otherwise feels well. Objective Objective Data Details: Sepsis reassessment Date exam performed 04/20/25 Time exam performed 2014 Current stage of sepsis: Sepsis ruled out. I do not think this is sepsis or severe sepsis. He has not been febrile. He has known atrial fibrillation, which has not been treated with any rate control medications. I think he HR elevation was from afib, not sepsis. He appears volume overloaded, not volume depleted. I suspect his lactate is elevated due to massive LE edema causing poor perfusion to lower extremities. In my opinion he needs diuresis, not fluid resuscitation at this time.
[2025-04-20] MEDS: SODIUM CHLORIDE 0.9 % (FLUSH) 10 ML SYRINGE 5 ML IVF (22:59)
--- NOTE | 2025-04-20 23:51 | PC.NURSE ---
Admitted from ED from home with bilat lower extremity edema/cellulitis. Bilat LE are red, weeping serous fluid, with multiple small blisters. Area left open to air elevated on two pillows with legs up in recliner. Legs above heart. VSS. Reports some pain at HS, Oxycodone given. Voided 100ml with PVR approx 1 hour after voiding 243ml. Voided 100ml at HS. Attempts to urinate for long amounts of time when he needs to go.
[2025-04-21] VITALS (10 sets, daily range): BP systolic 96–130; BP diastolic 67–97; PULSE 81–97; RESP 14–20; TEMP 36.4–36.8; O2SAT 96–99; BMI 35.1
[2025-04-21 00:20] LABS: Sodium* 124 mmol/L (135-149)
[2025-04-21] MEDS: 3 % SODIUM CHLORIDE 500 ml 50 ML 33.33 ML IV (01:08)
[2025-04-21 06:34] LABS: Hematocrit 36.0 % (37.0-53.0); Hemoglobin* 11.8 gm/dL (13.5-17.5); Immature Granulocytes Pct Auto 0.6 %; Mean Corpuscular HGB Conc 33 gm/dL (32-36); Mean Corpuscular Hemoglobin 28 pg (26-34); Mean Corpuscular Volume 85 fL (80-100); RDW Coefficient of Variation % 16.4 % (11.5-15.5); Red Blood Count 4.23 m/uL (4.30-5.90); White Blood Count* 21.70 K/uL (4.50-11.00)
[2025-04-21 06:35] LABS: Immature Granulocytes Abs Auto 0.10 K/uL (0.00-0.30); Lymphocytes Absolute Auto 0.80 K/uL (0.90-2.90); Slide Review Reflex No
[2025-04-21 06:47] LABS: Chloride* 91 mmol/L (96-114); Potassium* 5.2 mmol/L (3.6-5.1)
[2025-04-21] MEDS: OMEPRAZOLE 20 MG CAPSULE DR PO (06:47)
[2025-04-21] MEDS: LEVOTHYROXINE 75 MCG TABLET PO (06:47)
[2025-04-21 06:50] LABS: Blood Urea Nitrogen* 64 mg/dL (7-30); Creatinine* 2.5 mg/dL (0.5-1.5); Est. Creatinine Clearance* 25.92; Estimated Glomerular Filt Rate 26 ml/min
[2025-04-21 06:51] LABS: Anion Gap 9 mEq/L (7-15); Calcium* 9.0 mg/dL (8.4-10.6); Carbon Dioxide* 24 mmol/L (20-32); Glucose* 97 mg/dL (60-115)
[2025-04-21 06:55] LABS: Sodium* 124 mmol/L (135-149)
--- NOTE | 2025-04-21 07:58 | PC.NURSE ---
This patient appears to have a cognitive deficit but he is alert and oriented. Vitally he has been having diverging blood pressures with the left higher than the right. On-call physician notified. No changes in orders. Lower legs are edematous, red, and weeping fluid. Keeping legs elevated. No wound change orders. Currently open to air. Significant smell from these areas. Urinary retention and difficulty producing urine. Dark lena coloration. Pain in the morning has not been well managed with available PRNs. Oncoming nurse notified. Standing up with a rolling walker for urination has been necessary. He does not appear to be in a state of strength to walk any distance safely. ?
[2025-04-21] MEDS: FUROSEMIDE 10 MG/ML inj 60 MG IVP (08:20)
[2025-04-21] MEDS: FERROUS SULFATE 325 MG TABLET PO (08:20)
[2025-04-21] MEDS: FOLIC ACID 1 MG TABLET PO (08:22)
[2025-04-21] MEDS: SODIUM CHLORIDE 0.9 % (FLUSH) 10 ML SYRINGE 5 ML IVF ×3 (08:22→22:54)
[2025-04-21] MEDS: glipiZIDE 2.5 MG ER TAB PO (08:22)
[2025-04-21] MEDS: THIAMINE 100 MG TABLET PO (08:23)
[2025-04-21] MEDS: CEFAZOLIN 1 GM in 0.9 % SODIUM CHLORIDE Mini-bag 100 ML IVPB ×2 (09:37→21:46)
[2025-04-21] MEDS: PERFLUTREN LIPID MICROSPHERES 2 ML VIAL IVP (11:32)
[2025-04-21] MEDS: TORSEMIDE 20 MG TABLET PO (13:15)
--- NOTE | 2025-04-21 13:16 | PM.IMPN1 ---
Assessment and Plan Assessment and plan (1) Cellulitis: Problem comment: - LLE - Suspect due to loss of skin integrity from massive edema and weeping - Treat with Ancef, renally dosed - Consult wound care - patient has elevated WBC and elevated HR, will check lactate. I do not think he is septic. I think his HR is elevated due to afib. He does not take medication for rate control due to h/o bradycardia on coreg Status: Acute (2) Leukocytosis: Problem comment: suspect due to cellulitis Status: Acute (3) Edema, peripheral: Problem comment: - Bilateral, L worse than R. LLE US negative for DVT - Diurese, elevate, consult OT and wound care - lymphedema wraps Status: Acute (4) Acute on chronic heart failure: Problem comment: - HFpEF, most recent echo was 12/24/23 which showed an EF of 55-60%. Repeat ECHO. - Admit for diuresis. I explained to the patient that renal failure is likely due to heart failure and will likely improve some with diuresis, but there is also a chance that it may worsen and he may need dialysis. Monitor I/Os and daily weights. Status: Acute (5) ANDERY (acute kidney injury): Problem comment: - Suspect cardiorenal syndrome. Could be urinary retention. Check PVR. Diurese and monitor. I spoke with patient and his son about the potential need for dialysis again if renal function worsens with diuresis. Patient is unsure if he would want to do that again because it was so intense and time consuming. Status: Acute (6) Cardiorenal syndrome with renal failure: Problem comment: - monitor closely - decrease dose of diuretic from furosemide 40 mg IV b.i.d. eat to torsemide 40 mg p.o. q.a.m. Status: Suspected (7) Hyponatremia: Problem comment: Suspect related to volume overload/HF exacerbation. Start diuresis, recheck sodium in a few hours. Status: Acute (8) Hyperkalemia: Problem comment: - EKG does not show any effect of hyperkalemia. - mildly elevated. Will likely improve sufficiently with diureses. Monitor on telemetry, recheck K in am. Status: Acute (9) Normocytic anemia: Problem comment: - likely multifactorial due to h/o GI bleed, CKD Status: Chronic (10) Type 2 diabetes mellitus: Problem comment: - continue glipizide, start ISS Status: Chronic (11) Essential hypertension: Problem comment: - not on antihypertension medication other than torsemide, will be giving lasix here. Monitor. Status: Chronic (12) Chronic atrial fibrillation: Problem comment: - h/o bradycardia on coreg, has not been on any rate control as outpatient. Monitor on tele. - Eliquis discontinued last year due to h/o GI bleeding, anemia. PCP has recommended restarting it, patient declined. Status: Chronic (13) Moderate tricuspid regurgitation: Problem comment: 05/09/2023 RVSP 44 mmHg + RAP Status: Chronic Plan 1. Reviewed impression, plan, recommendations with patient 2. Answered his questions A 3 is agreeable to above stated plans and recommendations Total Time Spent Total Time Spent: 35 minutes Subjective Date Seen: 04/21/25 Interval history: Admission history of present illness: ?74 year old male with a history of chronic kidney disease stage 3, obesity, chronic lower extremity edema, heart failure with preserved ejection fraction, hypertension, type 2 diabetes, chronic atrial fibrillation for which he is not on anticoagulation due to history of GI bleeding, and moderate tricuspid regurgitation who presented through the emergency department for concerns of worsening lower extremity edema. His son, Fei, is with him today and helps to give a history. He tells me that his symptoms started somewhere around 3-4 weeks ago when his legs gradually became more swollen to the point where he could no longer put them up and so he would sleep sitting in the chair. Around that time he also became more short of breath and that lasted for a few days and then seemed to resolve. Although when we actually talk about it further, he has actually been doing a lot less and would still likely be short of breath if he were doing similar activities to what he would able to do to 4 weeks ago. In the last 3-4 nights he has not been sleeping well although he cannot tell me why. He notes that his left leg has become more painful. Both legs have been weak being and he has had a few injuries to his legs, especially on the left which do not seem to be healing very well lately. He [facility] with [facility]. ?He had a similar presentation a year ago for which he was admitted to the hospital, but had worsening renal function with diuresis. Was transferred to [facility] and required 13 weeks of dialysis. His renal function did recover and he was able to stop dialysis. Since then he has been following with a web development intern and civil preparedness coordinator as well as his primary care provider. He was told that he has a coronary artery blockage and would benefit from a stent, but could do that any time within the next year.? Hospital day 2, 04/21/2025: Left lower extremity pain much less problematic today than yesterday. Continues to be afebrile. Dyspnea improved. He tells me he has lost a lot of weight overnight with diuresis efforts. Denies chest heaviness, pressure, tightness, pain. Denies dyspnea at rest, paroxysmal nocturnal dyspnea, orthopnea. No syncope, near syncope, orthostasis, lightheadedness. Eating and drinking without concerns. Denies bladder or bowel incontinence. Denies nausea or vomiting. Denies abdominal pain. Exam Narrative: Exam Narrative: I examined patient his hospital room. Alert and oriented x4. Friendly, reticular, cooperative. No acute distress at rest. Vision and hearing are adequate. Lungs are clear to auscultation. Heart tones with regular rhythm. Abdomen with active bowel sounds, soft, nontender. Obese abdomen. Bilateral venous stasis dermatitis with left anterior silva superficial venous ulcer fibrin covered. Left lower extremity markedly more erythematous than the right lower extremity. Left lower extremities moderately warm to touch compared to the right. Tenderness in the posterior aspect of left lower extremity calf. No focal motor neurologic deficits. Const: Vital Signs, click to edit/add: Vital Signs - 24 hr 04/20/25 13:38 04/20/25 13:45 04/20/25 14:02 Temperature Pulse Rate 83 89 89 Pulse Rate [Right Brachial] Respiratory Rate 12 12 Blood Pressure 123/68 122/93 H Blood Pressure [Le ft Arm] Blood Pressure [Ri ght Arm] Pulse Oximetry 99 97 98 Oxygen Delivery Mi thod 04/20/25 14:30 04/20/25 15:02 04/20/25 17:21 Temperature 98.4 F Pulse Rate 94 103 H 89 Pulse Rate [Right Brachial] Respiratory Rate 16 17 Blood Pressure 119/97 H Blood Pressure [Le ft Arm] Blood Pressure [Ri ght Arm] Pulse Oximetry 95 98 Oxygen Delivery Mi thod 04/20/25 17:32 04/20/25 17:32 04/20/25 20:32 Temperature 98.2 F 98.3 F Pulse Rate Pulse Rate [Right Brachial] 89 103 H Respiratory Rate 18 20 14 Blood Pressure Blood Pressure [Le ft Arm] Blood Pressure [Ri ght Arm] 121/79 132/80 Pulse Oximetry 97 [address] [facility] 04/20/25 21:39 04/21/25 00:25 04/21/25 00:27 Temperature 98.4 F Pulse Rate Pulse Rate [Right Brachial] 97 87 Respiratory Rate 20 18 Blood Pressure Blood Pressure [Le ft Arm] Blood Pressure [Ri ght Arm] 135/66 100/67 Pulse Oximetry 95 [address] [facility] Room Air Room Air 04/21/25 03:57 04/21/25 04:25 04/21/25 07:00 Temperature 97.8 F 97.5 F L Pulse Rate Pulse Rate [Right Brachial] 97 93 Respiratory Rate 18 20 Blood Pressure Blood Pressure [Le ft Arm] 122/76 112/81 Blood Pressure [Ri ght Arm] 98/67 97/70 106/72 Pulse Oximetry 99 98 Oxygen Delivery [facility] Room Air Room Air 04/21/25 07:00 04/21/25 07:00 04/21/25 07:00 Temperature Pulse Rate 85 Pulse Rate [Right Brachial] 93 Respiratory Rate 20 20 Blood Pressure Blood Pressure [Le ft Arm] Blood Pressure [Ri ght Arm] Pulse Oximetry [address] [facility] 04/21/25 11:00 Temperature 97.6 F Pulse Rate Pulse Rate [Right Brachial] 88 Respiratory Rate 18 Blood Pressure Blood Pressure [Le ft Arm] Blood Pressure [Ri ght Arm] 130/97 H Pulse Oximetry [address] [facility] Labs Labs: Laboratory Results - last 24 hr 04/20/25 04/20/25 04/20/25 13:05 18:05 23:48 WBC RBC Hgb Hct MCV MCH MCHC RDW Coeff of Royal Plt Count Neut % (Auto) Lymph % (Auto) [place] % (Auto) Eos % (Auto) Baso % (Auto) Neut # (Auto) Lymph # (Auto) [place] # (Auto) Eos # (Auto) Baso # (Auto) Abs Immat Gran (auto) Imm/Tot Granulo (auto) Sodium 125 L 124 L* Potassium 5.3 H Chloride 92 L Carbon Dioxide 21 Anion Gap 12 BUN 57 H Creatinine 2.5 H Estimated Creat Clear Estimated GFR 26 Glucose 99 Lactate 2.5 H Calcium 9.5 Troponin I 0.02 C-Reactive Protein 5.6 H NT-Pro-B Natriuret Pep 2510 H Lab Acknowledgement 04/21/25 04/21/25 06:06 07:27 WBC 21.70 H RBC 4.23 L Hgb 11.8 L Hct 36.0 L MCV 85 MCH 28 MCHC 33 RDW Coeff of Royal 16.4 H Plt Count 275 Neut % (Auto) 88.4 H Lymph % (Auto) 3.6 L [place] % (Auto) 7.4 Eos % (Auto) 0.0 Baso % (Auto) 0.0 Neut # (Auto) 19.20 H Lymph # (Auto) 0.80 L [place] # (Auto) 1.60 H Eos # (Auto) 0.00 Baso # (Auto) 0.00 Abs Immat Gran (auto) 0.10 Imm/Tot Granulo (auto) 0.6 Sodium 124 L* Potassium 5.2 H Chloride 91 L Carbon Dioxide 24 Anion Gap 9 BUN 64 H Creatinine 2.5 H Estimated Creat Clear 25.92 Estimated GFR 26 Glucose 97 Lactate Calcium 9.0 Troponin I C-Reactive Protein 7.3 H NT-Pro-B Natriuret Pep Lab Acknowledgement Test Added
[2025-04-21] MEDS: ACETAMINOPHEN 325 MG TABLET 650 MG PO (14:59)
--- NOTE | 2025-04-21 15:36 | PC.NURSE ---
End of shift report [id number]: Alert and oriented x4 with intermittent confusion noted. Pain to bilateral posterior calves that patient reporting poor pain management with. Pain consistently rated at 8-9/10, prn oxycodone dose increased and prn Dilaudid utilized for breakthrough pain. Redness to BLE remains within outlines. Non pitting edema, awaiting lymphedema specialist to consult on 04/22. In recliner with chair tipped back to elevate lower extremities, patient in standing recliner as he doesn't tolerate laying flat due to back pain.
--- NOTE | 2025-04-21 15:39 | PC.SOCIAL ---
Discharge planning: SW met with patient who states that he is improving. Patient reports that he has two sons who work night that can check on him and visit him often. Patient states that he has a neighbor lady that also supports and helps him. Patient mentions that he has a cleaning lady, but otherwise everything has been going well until all this swelling got worse. Patient feels when the swelling goes down he will be able to go home and things will return to normal and he does not need additional support. SW informed him that they would meet with him again tomorrow after PT sees him to work on discharge planning. Patient had no questions or concerns at this time.
--- NOTE | 2025-04-21 19:35 | W.PM.CROSSCO ---
Subjective Subjective Principal diagnosis: ANDREY, LE edema, LLE cellulitis, sepsis Interval history: I was asked to f/u on Echocardiogram results. The study done today is unchanged compared to prior exam of 12/24/2023 with the exception of a new pericardial effusion without echocardiographic findings of tamponade. VS reviewed and are reassuring. No hypotension. No change in the current plan. Assessment and Plan Assessment and plan (1) Pericardial effusion: Problem comment: Moderate on ECHO 04/21/25, without evidence of tamponade. Status: Acute
--- NOTE | 2025-04-21 23:34 | PC.NURSE ---
Patient up with assist of two, walker, and gait belt. Patient has been standing at the bedside using the urinal. Patients pain managed with prn medications. Patients cellulitis redness not exceeding the outlined area. Patients PIV redressed and patent in Right A/C. Patient had copious amounts of purulent drainage from Bilat LE when not elevated during dinner.
[2025-04-22] VITALS (7 sets, daily range): BP systolic 103–140; BP diastolic 76–83; PULSE 70–93; RESP 16–20; TEMP 35.7–36.8; O2SAT 93–98
[2025-04-22] MEDS: ACETAMINOPHEN 325 MG TABLET 650 MG PO ×2 (02:54→12:36)
--- NOTE | 2025-04-22 06:18 | PC.NURSE ---
[id number]: Pt pleasant, alert and oriented. VSS. Tele reads A fib with NVR. BG rechecked at 0230, read at 99; snack provided. Pt in chair throughout shift, LE elevated. Legs weepy, chux changed several times throughout shift. Redness seemingly receding the outline. Pain rated 6-8/10 in outsides of calves throughout shift, see mar for regimen. Pt stated improvement. Pt?appears to be resting, the call light within reach.?
[2025-04-22] MEDS: LEVOTHYROXINE 75 MCG TABLET PO (06:28)
[2025-04-22] MEDS: OMEPRAZOLE 20 MG CAPSULE DR PO (06:28)
[2025-04-22] MEDS: THIAMINE 100 MG TABLET PO (08:04)
[2025-04-22] MEDS: glipiZIDE 2.5 MG ER TAB PO (08:04)
[2025-04-22] MEDS: FERROUS SULFATE 325 MG TABLET PO (08:04)
[2025-04-22] MEDS: TORSEMIDE 20 MG TABLET PO ×2 (08:04→14:29)
[2025-04-22] MEDS: FOLIC ACID 1 MG TABLET PO (08:04)
[2025-04-22] MEDS: SODIUM CHLORIDE 0.9 % (FLUSH) 10 ML SYRINGE 5 ML IVF ×3 (08:04→17:44)
[2025-04-22] MEDS: CEFAZOLIN 1 GM in 0.9 % SODIUM CHLORIDE Mini-bag 100 ML IVPB ×2 (09:34→22:00)
[2025-04-22 11:35] LABS: Hematocrit 37.3 % (37.0-53.0); Hemoglobin* 12.0 gm/dL (13.5-17.5); Immature Granulocytes Pct Auto 1.1 %; Mean Corpuscular HGB Conc 32 gm/dL (32-36); Mean Corpuscular Hemoglobin 28 pg (26-34); Mean Corpuscular Volume 86 fL (80-100); RDW Coefficient of Variation % 16.6 % (11.5-15.5); Red Blood Count 4.33 m/uL (4.30-5.90); White Blood Count* 15.02 K/uL (4.50-11.00)
[2025-04-22 11:39] LABS: Immature Granulocytes Abs Auto 0.20 K/uL (0.00-0.30); Lymphocytes Absolute Auto 1.00 K/uL (0.90-2.90); Slide Review Reflex No
[2025-04-22 11:49] LABS: Albumin* 3.8 g/dL (3.3-5.0); Chloride* 90 mmol/L (96-114); Potassium* 5.0 mmol/L (3.6-5.1)
[2025-04-22 11:52] LABS: Anion Gap 11 mEq/L (7-15); Blood Urea Nitrogen* 76 mg/dL (7-30); Carbon Dioxide* 22 mmol/L (20-32); Creatinine* 3.1 mg/dL (0.5-1.5); Est. Creatinine Clearance* 20.91; Estimated Glomerular Filt Rate 20 ml/min
[2025-04-22 11:53] LABS: Calcium* 8.9 mg/dL (8.4-10.6); Glucose* 113 mg/dL (60-115)
[2025-04-22 11:58] LABS: Sodium* 123 mmol/L (135-149)
--- NOTE | 2025-04-22 12:02 | PM.WSCN ---
Date of Consult Consult date: 04/22/25 Requesting Physician: Hospitalist Primary Care Provider: Lee Mukherjee MD Consult Narrative Reason for consult: Lower extremity wounds Narrative: Javi Whiteside is a 74 year old male who was admitted to in patient status with lower extremity cellulitis. He 1st presented to the emergency room on 04/20/2025 and was admitted to in patient from there. Has a history of type 2 diabetes, chronic AFib, hypertension, CHF, tricuspid regurg, history of cardiorenal syndrome with renal failure. He has been seen previously in the [facility] for lower extremity wounds. Today states that some have his lower extremity wounds started this last Winter when his script them while working outside. States that he does have some level of compression that he had been using at home. His legs got increasingly swollen and he did stop using this. Use under the last time he used any compression. She does state he has tenderness to the lower extremities. Has been weeping for some time now. Review of Systems Status of ROS: Reports: 6 or more systems reviewed and unremarkable except as noted in History and below [facility] Medical History (Updated 04/21/25 @ 19:44 by Shadia Doyle MD) Acute renal insufficiency ?N28.9 - Disorder of kidney and ureter, unspecified (ICD-10) Edema of left lower extremity ?R60.0 - Localized edema (ICD-10) Normocytic anemia ?D64.9 - Anemia, unspecified (ICD-10) GI bleeding ?K92.2 - Gastrointestinal hemorrhage, unspecified (ICD-10) Alcohol dependence in remission ?F10.21 - Alcohol dependence, in remission (ICD-10) Anasarca ?R60.1 - Generalized edema (ICD-10) Recurrent depression ?F33.9 - Major depressive disorder, recurrent, unspecified (ICD-10) Venous stasis ulcer ?I83.009 - Varicose veins of unspecified lower extremity with ulcer of unspecified site (ICD-10) ?L97.909 - Non-pressure chronic ulcer of unspecified part of unspecified lower leg with unspecified severity (ICD-10) Type 2 diabetes mellitus ?E11.9 - Type 2 diabetes mellitus without complications (ICD-10) Chronic atrial fibrillation ?I48.20 - Chronic atrial fibrillation, unspecified (ICD-10) Obesity ?E66.9 - Obesity, unspecified (ICD-10) Gout ?M10.9 - Gout, unspecified (ICD-10) Impotence of organic origin ?N52.9 - Male erectile dysfunction, unspecified (ICD-10) Essential hypertension ?I10 - Essential (primary) hypertension (ICD-10) Chronic kidney disease (CKD) ?N18.9 - Chronic kidney disease, unspecified (ICD-10) Moderate tricuspid regurgitation ?I07.1 - Rheumatic tricuspid insufficiency (ICD-10) Heart failure with preserved ejection fraction ?I50.30 - Unspecified diastolic (congestive) heart failure (ICD-10) POLST (Physician Orders for Life-Sustaining Treatment) ?Z78.9 - Other specified health status (ICD-10) Social History Narrative: Lives independently. Son, Jacob, lives nearby and checks on him and has offered to make low sodium meals for him. Uses walker. Quit tobacco use in 2002, 10 pack-year history. Drinks 1-2 alcoholic beverages daily. What is your current living situation?: I presently have a place to live Problems where you live: no known problems Problems where you live details: No In the past 12 months, utilities in danger of being shut off: no In past 12 months, lack of transportation kept you from medical appts, meetings, work, or getting things needed for daily living: no In the past 12 mos, have been you worried that your food would run out before you had money to buy more?: never true In the past 12 mos, the food you bought just didn't last and you didn't have money to buy more?: never true Highest level of school completed/degree received: 12th grade, no diploma Smoking Status: Former smoker Do you use any of these nicotine containing products: None Second hand tobacco smoke exposure: No How often do you have a drink containing alcohol: monthly or less Alcohol type: hard liquor How many standard drinks containing alcohol do you have on a typical day: 1 or 2 How often do you have six or more drinks on one occasion: Never AUDIT-C Alcohol total score: 1 Non-prescribed substance use: denies use Caffeine: Yes (coffee) How often does anyone, including family, friends and others, physically hurt you: never How often does anyone, including family, friends and others, insult or talk down to you: never How often does anyone, including family, friends and others, threaten you with harm: never How often does anyone, including family, friends and others, scream or curse at you: never service: Yes Meds Home Medications and Allergies Home Medications ?Medication ?Instructions ?Recorded ?Confirmed ?Type acetaminophen 325 mg capsule 325 mg PO QID PRN 12/16/23 04/20/25 History atorvastatin 20 mg tablet 20 mg PO HS 12/16/23 04/20/25 History ferrous sulfate 325 mg (65 mg 325 mg PO DAILY 12/16/23 04/20/25 History iron) tablet (FeroSul) folic acid 1 mg tablet 1 mg PO DAILY 12/16/23 04/20/25 History levothyroxine 75 mcg tablet 75 mcg PO QAM 12/16/23 04/20/25 History magnesium chloride 64 mg 64 mg PO BID 12/16/23 04/20/25 History (magnesium chloride) tablet,delayed release (Mag 64) omeprazole 20 mg capsule,delayed 20 mg PO DAILY 12/16/23 04/20/25 History release thiamine HCl (vitamin B1) 100 mg 100 mg PO DAILY 12/16/23 04/20/25 History tablet torsemide 20 mg tablet 20 mg PO BID 12/16/23 04/20/25 History glipizide 2.5 mg tablet, extended 2.5 mg PO DAILY 04/20/25 04/20/25 History release 24 hr Allergies Allergy/AdvReac Type Severity Reaction Status Date / Time allopurinol Allergy Mild Hives Verified 04/20/25 10:35 lisinopril Allergy Mild increased Verified 04/20/25 10:35 Cr amlodipine Allergy edema Verified 04/20/25 10:35 Exam Const: Vital Signs, click to edit/add: Vital Signs - 24 hr 04/21/25 15:00 04/21/25 15:00 04/21/25 19:00 Temperature 97.8 F Pulse Rate Pulse Rate [Pulse Oximeter] Pulse Rate [Right Brachial] 89 89 Respiratory Rate 18 14 14 Blood Pressure [Le ft Arm] 101/80 96/67 Blood Pressure [Ri ght Arm] Pulse Oximetry 97 97 97 Oxygen Delivery Me thod Room Air Room Air Room Air 04/21/25 23:00 04/21/25 23:00 04/21/25 23:00 Temperature Pulse Rate 81 Pulse Rate [Pulse Oximeter] 86 Pulse Rate [Right Brachial] Respiratory Rate 16 Blood Pressure [Le ft Arm] Blood Pressure [Ri ght Arm] Pulse Oximetry 96 Oxygen Delivery Me thod Room Air 04/21/25 23:40 04/22/25 02:45 04/22/25 07:00 Temperature 98.2 F 97.5 F L 98.1 F Pulse Rate Pulse Rate [Pulse Oximeter] 86 86 80 Pulse Rate [Right Brachial] Respiratory Rate 16 18 20 Blood Pressure [Le ft Arm] 108/74 112/82 Blood Pressure [Ri ght Arm] 107/83 Pulse Oximetry 96 94 94 Oxygen Delivery Me thod Room Air Room Air Room Air 04/22/25 07:00 04/22/25 07:00 04/22/25 07:00 Temperature Pulse Rate 83 Pulse Rate [Pulse Oximeter] 80 Pulse Rate [Right Brachial] Respiratory Rate 20 Blood Pressure [Le ft Arm] Blood Pressure [Ri ght Arm] Pulse Oximetry 94 Oxygen Delivery Me thod Room Air Common normals: no apparent distress General appearance: cooperative and comfortable Resp: Common normals: normal respiratory effort Extremity: General: edema (4+ pitting ) and pulses abnormal (too edematous to fully palpate pedal pulses, weakly found right DP. ) Skin: General skin exam: erythema Wounds: wounds noted size (L: Posterior 20x13 Anterior 1.5x1.5 R: scattered open areas posteriorly ), bed pale, dusky red, with slough and crusted, drainage serosanguineous and with surrounding erythema Labs Labs: Short CBC 04/22/25 Range/Units 11:28 WBC 15.02 H (4.50-11.00) K/uL Hgb 12.0 L (13.5-17.5) gm/dL Hct 37.3 (37.0-53.0) % Plt Count 274 (140-440) K/uL BMP 04/22/25 11:28 Sodium 123 L* Potassium 5.0 Chloride 90 L Carbon Dioxide 22 BUN 76 H Creatinine 3.1 H Glucose 113 Calcium 8.9 Liver Function 04/22/25 Range/Units 11:28 Albumin 3.8 (3.3-5.0) g/dL Assessment and Plan Assessment and plan (1) Edema, peripheral: Problem comment: - Bilateral, L worse than R. LLE US negative for DVT - Diurese, elevate, consult OT and wound care - lymphedema wraps Status: Acute Assessment and Plan: Review of patient's medical record does show that he has been seen in the [facility] on multiple occasions. In 2021 patient did have arterial ultrasound that did show monophasic blood flow. I do not see that he has ever followed with vascular. This will mean any compression applied will need to be monitored closely and at a reduced level. It in all likelihood it would be very valuable for an outpatient referral to Vascular for evalutation and repeat ultrasounds. With the amount of edema to the lower extremities pedal pulses are not able to be adequately palpated. Only a week dorsalis pedis pulse felt on the right lower extremity. Patient does have some amount of pain to the lower extremities, though that is likely due to the amount of swelling he currently has. Significant weeping and drainage coming from the open areas. Lower extremities are free of any hair growth. (2) Cellulitis: Problem comment: - LLE - Suspect due to loss of skin integrity from massive edema and weeping - Treat with Ancef, renally dosed - Consult wound care - patient has elevated WBC and elevated HR, will check lactate. I do not think he is septic. I think his HR is elevated due to afib. He does not take medication for rate control due to h/o bradycardia on coreg Status: Acute Assessment and Plan: Patient noted to have several open areas to the lower extremity. See above assessment for measurements. Posterior left lower extremity does appear to have deep purple discoloration, which could be a proponent of pressure from swelling or blood flow to the lower extremities. Wounds are full thickness with large drainage. Overall pale and mixed slough wound beds. Lower extremity cellulitis currently being treated by hospitalist team. Will be beneficial to treat edema to the best of ability. Lymphedema OT has been consulted and will see later today. Wound Care orders: 1) Cleanse gently with wound cleanser, Vashe if able. Dry. 2) Apply Aquacel ag over wound beds and any lower extremity weeping. 3) Wrap with kerlix 4) Change dressings daily if necessary due to level of drainage.
--- NOTE | 2025-04-22 12:37 | PC.SOCIAL ---
Addendum entered by MINISTERIO Valentin 04/22/25 15:49: Discharge planning: [employer]ra[employer] worker attempted to meet with the pt again this afternoon after PT met with him to try to discuss short-term rehab again, but the pt was sleeping and would not awake to this worker's voice. PT stated that he told them he would not go to a prison either, but would consider home care if he has insurance coverage for it. Social work to follow-up as needed. Original Note: Discharge planning: terra[employer] worker met with pt to discuss discharge planning. terrazzo worker explained that the pt is being recommended for short-term rehab after the hospital. Pt adamantly refused to go to a short-term rehab facility after his hospital stay. terrazzo worker notified PT of the update. PT is planning to meet with him at 12:45pm today. Social work to follow-up as needed.
--- NOTE | 2025-04-22 14:57 | P.IMPN_ITS ---
Assessment and Plan Assessment and plan (1) Cellulitis: Problem comment: - LLE - Suspect due to loss of skin integrity from massive edema and weeping - Treat with Ancef, renally dosed - Consult wound care - patient has elevated WBC and elevated HR, will check lactate. I do not think he is septic. I think his HR is elevated due to afib. He does not take medication for rate control due to h/o bradycardia on coreg - left lower extremity cellulitis improved substantially 04/22/25 compared to 04/21. Continue with cefazolin IV for now. Status: Acute (2) Edema, peripheral: Problem comment: - Bilateral, L worse than R. LLE US negative for DVT - Diurese, elevate, consult OT and wound care - lymphedema wraps Status: Acute (3) Acute on chronic heart failure: Problem comment: - HFpEF, most recent echo was 12/24/23 which showed an EF of 55-60%. - Admit for diuresis. I explained to the patient that renal failure is likely due to heart failure and will likely improve some with diuresis, but there is also a chance that it may worsen and he may need dialysis. Monitor I/O's and daily weights. - transthoracic echocardiogram 04/21/2025: 1. Normal LV chamber size, wall thickness, global function, LVEF 71%. 2. Normal RV size with function not well visualized. 3. Moderate to severe tricuspid valve regurgitation. 4. Dilated inferior vena cava with respiratory size variation less than 50%. 5. Severely enlarged atria. 6. Moderate pericardial effusion without echocardiographic findings of tampo nade. - expressed my concern to the patient about possibility of him developing cardiorenal syndrome and that he already warrants consideration from multiple specialists including Cardiology, Nephrology, Wound specialists. He adamantly asks me to try 1 more day before we consider transfer. As such will continue with our current efforts and reassess tomorrow before making a decision about possible transfer due to complexity of his underlying condition. Status: Acute (4) Moderate tricuspid regurgitation: Problem comment: 05/09/2023 RVSP 44 mmHg + RAP Status: Chronic (5) Pericardial effusion: Problem comment: Moderate on ECHO 04/21/25, without evidence of tamponade. Status: Acute (6) Acute kidney injury: Problem comment: - on top of chronic kidney disease stage 3-4 - likely multifactorial including cardiorenal syndrome from heart failure and acute urinary retention - Hold atorvastatin, carvedilol, febuxostat, and metformin, place freddy wilson as above Status: Acute (7) Cardiorenal syndrome with renal failure: Problem comment: - monitor closely - decrease dose of diuretic from furosemide 40 mg IV b.i.d. to torsemide 40 mg p.o. q.a.m. Status: Suspected (8) Hyponatremia: Problem comment: Suspect related to volume overload/HF exacerbation. Start diuresis, recheck sodium in a few hours. Status: Acute (9) Leukocytosis: Problem comment: suspect due to cellulitis Status: Acute (10) Normocytic anemia: Problem comment: - likely multifactorial due to h/o GI bleed, CKD Status: Chronic (11) Type 2 diabetes mellitus: Problem comment: - continue glipizide, start ISS Status: Chronic (12) Chronic atrial fibrillation: Problem comment: - h/o bradycardia on coreg, has not been on any rate control as outpatient. Monitor on tele. - Eliquis discontinued last year due to h/o GI bleeding, anemia. PCP has recommended restarting it, patient declined. Status: Chronic (13) Essential hypertension: Problem comment: - not on antihypertension medication other than torsemide, will be giving lasix here. Monitor. Status: Chronic (14) Hyperkalemia: Problem comment: - EKG does not show any effect of hyperkalemia. - mildly elevated. Will likely improve sufficiently with diureses. Monitor on telemetry, recheck K in am. Status: Acute (15) Venous stasis ulcer: Problem comment: - Does not appear cellulitic. Diurese, elevate legs, compression wraps, monitor. Will need to return to wound clinic as an outpatient. Status: Acute Plan 1. Reviewed my impression, plans, recommendations with patient 2. Despite my recommendation that patient allow is to discussed his case with specialist at a tertiary medical facility, patient adamantly refuses to allow me to do so. He requests that he stay at least overnight we try 1 more night. I hesitantly agree. I indicate to him if his condition is the same or worse tomorrow that we absolutely need to be in touch with specialists at another facility, that he may need Cardiology, Nephrology, and Wound Care services above and beyond that which were able to provide him here in our [facility]. He is agreeable with this tentative plan. Meanwhile should his condition worsen overnight we would make contact sooner than tomorrow. 3. Answers questions to satisfaction Total Time Spent Total Time Spent: 45 minutes Subjective Date Seen: 04/22/25 Interval history: Admission history of present illness: ?74 year old male with a history of chronic kidney disease stage 3, obesity, chronic lower extremity edema, heart failure with preserved ejection fraction, hypertension, type 2 diabetes, chronic atrial fibrillation for which he is not on anticoagulation due to history of GI bleeding, and moderate tricuspid regurgitation who presented through the emergency department for concerns of worsening lower extremity edema. His son, Fei, is with him today and helps to give a history. He tells me that his symptoms started somewhere around 3-4 weeks ago when his legs gradually became more swollen to the point where he could no longer put them up and so he would sleep sitting in the chair. Around that time he also became more short of breath and that lasted for a few days and then seemed to resolve. Although when we actually talk about it further, he has actually been doing a lot less and would still likely be short of breath if he were doing similar activities to what he would able to do to 4 weeks ago. In the last 3-4 nights he has not been sleeping well although he cannot tell me why. He notes that his left leg has become more painful. Both legs have been weak being and he has had a few injuries to his legs, especially on the left which do not seem to be healing very well lately. He follows with our [facility]. ?He had a similar presentation a year ago for which he was admitted to the hospital, but had worsening renal function with diuresis. Was transferred to [facility] and required 13 weeks of dialysis. His renal function did recover and he was able to stop dialysis. Since then he has been following with a insulation manager and freelance photographer as well as his primary care provider. He was told that he has a coronary artery blockage and would benefit from a stent, but could do that any time within the next year.? Hospital day 2, 04/21/2025: Left lower extremity pain much less problematic today than yesterday. Continues to be afebrile. Dyspnea improved. He tells me he has lost a lot of weight overnight with diuresis efforts. Denies chest heaviness, pressure, tightness, pain. Denies dyspnea at rest, paroxysmal nocturnal dyspnea, orthopnea. No syncope, near syncope, orthostasis, li ghtheadedness. Eating and drinking without concerns. Denies bladder or bowel incontinence. Denies nausea or vomiting. Denies abdominal pain. Hospital day 3, 04/22/2025: He again notes left lower extremity pain is improved substantially compared to on presentation. Denies any dyspnea at rest at this time. He is satisfied with his level of subjective improvement. Exam Narrative: Exam Narrative: I examine him in his hospital room. He sitting on his recliner with legs extended before him. Appears comfortable. Anxious. Oriented x3. Articulate. Neck is full. Lungs are clear to auscultation with decreased breath sounds in bases, unchanged. Heart tones with regular rhythm, normal S1-S2. PMI not laterally displaced. Abdomen is obese with active bowel sounds, soft, nontender. Right and left lower extremities with venous stasis ulcers. Left lower extremity with serous drainage. Both lower extremities with venous stasis discoloration. Neither the right or the left lower extremity is warm to touch today, or as yesterday the left lower extremity certainly was. No focal motor neurologic deficits. Generalized weakness. 108 kg, unchanged from yesterday. Admis tyler weight reported as 104.4 kg. Const: Vital Signs, click to edit/add: Vital Signs - 24 hr 04/21/25 15:00 04/21/25 15:00 04/21/25 19:00 Temperature 97.8 F Pulse Rate Pulse Rate [Pulse Oximeter] Pulse Rate [Right Brachial] 89 89 Respiratory Rate 18 14 14 Blood Pressure [Le ft Arm] 101/80 96/67 Blood Pressure [Ri ght Arm] Pulse Oximetry 97 97 [facility] Room Air 04/21/25 23:00 04/21/25 23:00 04/21/25 23:00 Temperature Pulse Rate 81 Pulse Rate [Pulse Oximeter] 86 Pulse Rate [Right Brachial] Respiratory Rate 16 Blood Pressure [Le ft Arm] Blood Pressure [Ri ght Arm] Pulse Oximetry 96 [facility] 04/21/25 23:40 04/22/25 02:45 04/22/25 07:00 Temperature 98.2 F 97.5 F L 98.1 F Pulse Rate Pulse Rate [Pulse Oximeter] 86 86 80 Pulse Rate [Right Brachial] Respiratory Rate 16 18 20 Blood Pressure [Le ft Arm] 108/74 112/82 Blood Pressure [Ri ght Arm] 107/83 Pulse Oximetry 96 94 94 Oxygen Delivery Me thod Room Air Room Air Room Air 04/22/25 07:00 04/22/25 07:00 04/22/25 07:00 Temperature Pulse Rate 83 Pulse Rate [Pulse Oximeter] 80 Pulse Rate [Right Brachial] Respiratory Rate 20 Blood Pressure [Le ft Arm] Blood Pressure [Ri ght Arm] Pulse Oximetry 94 Oxygen Delivery Me thod Room Air 04/22/25 11:00 Temperature 98.2 F Pulse Rate Pulse Rate [Pulse Oximeter] 87 Pulse Rate [Right Brachial] Respiratory Rate 20 Blood Pressure [Le ft Arm] 119/77 Blood Pressure [Ri ght Arm] Pulse Oximetry 98 Oxygen Delivery Me thod Room Air Labs Labs: Laboratory Results - last 24 hr 04/22/25 11:28 WBC 15.02 H RBC 4.33 Hgb 12.0 L Hct 37.3 MCV 86 MCH 28 MCHC 32 RDW Coeff of Royal 16.6 H Plt Count 274 Neut % (Auto) 82.0 H Lymph % (Auto) 6.6 L [place] % (Auto) 9.3 Eos % (Auto) 0.9 Baso % (Auto) 0.1 Neut # (Auto) 12.30 H Lymph # (Auto) 1.00 [place] # (Auto) 1.40 H Eos # (Auto) 0.10 Baso # (Auto) 0.00 Abs Immat Gran (auto) 0.20 Imm/Tot Granulo (auto) 1.1 Sodium 123 L* Potassium 5.0 Chloride 90 L Carbon Dioxide 22 Anion Gap 11 BUN 76 H Creatinine 3.1 H Estimated Creat Clear 20.91 Estimated GFR 20 Glucose 113 Calcium 8.9 Phosphorus 4.4 Magnesium 2.5 C-Reactive Protein 13.9 H Albumin 3.8
--- NOTE | 2025-04-22 18:37 | PC.NURSE ---
End of shift report : Pleasant and cooperative with cares. Alert and oriented with intermittent confusion noted. Pain to bilateral posterior calves moderately managed with current regimen, patient reports pain at 6-9/10 with relief from pain medication for a short duration. Wound clinic consult completed and RLE dressing applied per orders. Lymphedema specialist consult completed and new compression to BLE placed per recommendation. Transfers with Ax2 with walker and gait belt, tolerates short distances, bed to recliner, poorly. Fluid restriction and patient compliant.
[2025-04-23] VITALS (12 sets, daily range): BP systolic 103–154; BP diastolic 66–90; PULSE 79–99; RESP 14–16; TEMP 35.5–37; O2SAT 94–100
[2025-04-23] MEDS: OMEPRAZOLE 20 MG CAPSULE DR PO (06:03)
[2025-04-23] MEDS: LEVOTHYROXINE 75 MCG TABLET PO (06:04)
[2025-04-23 06:31] LABS: HCO3 VBG 25 mmol/L (21-28); Lactate* 2.7 mmol/L (0.5-1.9); PCO2 VBG 56 mmHG (40-50); PO2 VBG < 30.1 mmHG (25-47); pH VBG 7.251 (7.32-7.43)
[2025-04-23 06:36] LABS: Hematocrit 39.8 % (37.0-53.0); Hemoglobin* 12.7 gm/dL (13.5-17.5); Immature Granulocytes Pct Auto 1.8 %; Immature Reticulocyte Fraction 32.2 % (2.3-13.4); Lymphocytes Absolute Auto 1.00 K/uL (0.90-2.90); Mean Corpuscular HGB Conc 32 gm/dL (32-36); Mean Corpuscular Hemoglobin 28 pg (26-34); Mean Corpuscular Volume 86 fL (80-100); RDW Coefficient of Variation % 16.8 % (11.5-15.5); Red Blood Count 4.61 m/uL (4.30-5.90); Reticulocyte Hemoglobin Equivi 28.7 pg (29.0-35.0); Reticulocytes Absolute 0.13 # (0.03-0.08); White Blood Count* 15.19 K/uL (4.50-11.00)
[2025-04-23 06:42] LABS: Immature Granulocytes Abs Auto 0.30 K/uL (0.00-0.30); Slide Review Reflex No
[2025-04-23 06:50] LABS: Chloride* 88 mmol/L (96-114)
[2025-04-23 06:51] LABS: Potassium* 5.9 mmol/L (3.6-5.1)
[2025-04-23 06:53] LABS: Blood Urea Nitrogen* 80 mg/dL (7-30); Creatinine* 3.1 mg/dL (0.5-1.5); Est. Creatinine Clearance* 20.91; Estimated Glomerular Filt Rate 20 ml/min
[2025-04-23 06:54] LABS: Anion Gap 13 mEq/L (7-15); Calcium* 9.2 mg/dL (8.4-10.6); Carbon Dioxide* 23 mmol/L (20-32); Glucose* 152 mg/dL (60-115)
[2025-04-23 06:55] LABS: Sodium* 124 mmol/L (135-149)
[2025-04-23 07:04] LABS: NT Pro B Type NatriureticPept* 4690 pg/mL (See Note)
--- NOTE | 2025-04-23 07:20 | PC.NURSE ---
Arrived to find this patient alert but not oriented to time. His cognition appears to have declined over the past three days that I have seen him. His speech was often slurred and rambling overnight to a degree more than two days ago. Vitally he appears stable although his temperature is consistently low. Legs are wrapped with his wound dressings and edema leggings up to his knees. These legs are very large. His abdomen is rounded and hard to the touch. Skin is thin. An IV began to leak and was replaced in the hours before midnight. Appears to have difficulty urinating. When he does urinate he produces small amounts of dark, lena urine. Bladder scans reveal residuals but not significant retention. Not agreeable to ambulation in the room tonight and prefers to stay in his chair. I spoke to the patient about the need to prevent injury by moving around out of his chair when he isn?t sleeping. Later moved to the bed in the early childhood coordinator. Fluid restrictions in place.?
--- NOTE | 2025-04-23 07:25 | PC.NURSE ---
Arrived to find this patient alert but not oriented to time. His cognition appears to have declined over the past three days that I have seen him. His speech was often slurred and rambling overnight to a degree more than two days ago. Vitally he appears stable although his temperature is consistently low. Legs are wrapped with his wound dressings and edema leggings up to his knees. These legs are very large. His abdomen is rounded and hard to the touch. An IV began to leak and was replaced in the hours before midnight. Appears to have difficulty urinating. When he does urinate he produces small amounts of dark, lena urine. Bladder scans reveal residuals but not significant retention. Not agreeable to ambulation in the room tonight and prefers to stay in his chair. I spoke to the patient about the need to prevent injury by moving around out of his chair when he isn?t sleeping. Later moved to the bed in the industrial engineer. Fluid restrictions in place.?
[2025-04-23] MEDS: TORSEMIDE 20 MG TABLET PO (08:18)
[2025-04-23] MEDS: THIAMINE 100 MG TABLET PO (08:18)
[2025-04-23] MEDS: FOLIC ACID 1 MG TABLET PO (08:18)
[2025-04-23] MEDS: FERROUS SULFATE 325 MG TABLET PO (08:18)
[2025-04-23] MEDS: glipiZIDE 2.5 MG ER TAB PO (08:18)
[2025-04-23] MEDS: SODIUM ZIRCONIUM CYCLOSILICATE 10 GM PO (08:35)
--- NOTE | 2025-04-23 09:58 | PM.IMPN1 ---
Assessment and Plan Assessment and plan (1) Cellulitis: Problem comment: - LLE - Suspect due to loss of skin integrity from massive edema and weeping - Treat with Ancef, renally dosed - Consult wound care - patient has elevated WBC and elevated HR, will check lactate. I do not think he is septic. I think his HR is elevated due to afib. He does not take medication for rate control due to h/o bradycardia on coreg - left lower extremity cellulitis improved substantially 04/22/25 compared to 04/21/2025. Continue with cefazolin IV for now. Status: Acute (2) Edema, peripheral: Problem comment: - Bilateral, L worse than R. LLE US negative for DVT - Diurese, elevate, consult OT and wound care - lymphedema wraps Status: Acute (3) Acute kidney injury: Problem comment: - on top of chronic kidney disease stage 3-4 - likely multifactorial including cardiorenal syndrome from heart failure and acute urinary retention - Hold atorvastatin, carvedilol, febuxostat, and metformin, place freddy wilson as above Status: Acute (4) Cardiorenal syndrome with renal failure: Problem comment: - monitor closely - decrease dose of diuretic from furosemide 40 mg IV b.i.d. to torsemide 40 mg p.o. q.a.m. Status: Suspected (5) Hyperkalemia: Problem comment: - EKG does not show any effect of hyperkalemia, K up to 5.9 on 04/23 - Lokelma given 04/23, on loop diuretics - discussed with Dr. Priti Forrest, Nephrology on 04/23; recommends transitioning from oral Torsemide to IV Furosemide on 04/23 - if K/Cr don't improve, consider transfer to tertiary facility 04/24 Status: Acute (6) Acute on chronic heart failure: Problem comment: - HFpEF, most recent echo was 12/24/23 which showed an EF of 55-60%. - Admit for diuresis. I explained to the patient that renal failure is likely due to heart failure and will likely improve some with diuresis, but there is also a chance that it may worsen and he may need dialysis. Monitor I/O's and daily weights. - transthoracic echocardiogram 04/21/2025: 1. Normal LV chamber size, wall thickness, global function, LVEF 71%. 2. Normal RV size with function not well visualized. 3. Moderate to severe tricuspid valve regurgitation. 4. Dilated inferior vena cava with respiratory size variation less than 50%. 5. Severely enlarged atria. 6. Moderate pericardial effusion without echocardiographic findings of tamponade. - expressed my concern to the patient about possibility of him developing cardiorenal syndrome and that he already warrants consideration from multiple specialists including Cardiology, Nephrology, Wound specialists. He adamantly asks me to try 1 more day before we consider transfer. As such will continue with our current efforts and reassess tomorrow before making a decision about possible transfer due to complexity of his underlying condition. Status: Acute (7) Moderate tricuspid regurgitation: Problem comment: 05/09/2023 RVSP 44 mmHg + RAP Status: Chronic (8) Pericardial effusion: Problem comment: - Moderate on ECHO 04/21/25, without evidence of tamponade - stable on RA, no chest pain Status: Acute (9) Hyponatremia: Problem comment: - Suspect chronic, related to volume overload/exacerbation of HFpEF - continue diuresis, follow sodium Status: Acute (10) Leukocytosis: Problem comment: - admission WBC 21, has improved to 15 with abx, likely 2/2 cellulitis Status: Acute (11) Normocytic anemia: Problem comment: - likely multifactorial due to h/o GI bleed, CKD - no evidence of acute blood loss at this time Status: Chronic (12) Type 2 diabetes mellitus: Problem comment: - continue glipizide, start ISS, accuchecks reassuring Status: Chronic (13) Chronic atrial fibrillation: Problem comment: - h/o bradycardia on coreg, has not been on any rate control as outpatient. Monitor on tele. - Eliquis discontinued last year due to h/o GI bleeding, anemia. PCP has recommended restarting it, patient declined. Status: Chronic (14) Essential hypertension: Problem comment: - not on antihypertension medication other than torsemide, will be giving lasix here. Monitor. Status: Chronic (15) Venous stasis ulcer: Problem comment: - Does not appear cellulitic. Diurese, elevate legs, compression wraps, monitor. Will need to return to wound clinic as an outpatient. Status: Acute Plan - per above - offered to call and update family/sons, but patient refuses, states he will update them himself - compression for DVT prophylaxis Subjective Date Seen: 04/23/25 Interval history: Amari was admitted to the hospital on 04/20 for LLE cellulitis, increased edema and ANDREY. Comorbidities include CKD, HFpEF, moderate TR, paroxysmal atrial fibrillation (not anticoagulated given h/o GI Bleed). Since admission: - LE edema improving, working with therapies for wraps - worsening renal function with hyperkalemia; has thusfar declined transfer but amenable to phone consult with Nephrology 04/23 - on Torsemide 20mg BID, not having significant diuresis - Blood sugars stable (80s-160s) - Hyponatremia stable (123-125); K has been around elevated, up to 5.9 today - working with therapies, SNF recommended. Patient precontemplative. Today, Amari feels like he's continuing to improve from an edema and cellulitis standpoint. He continues to decline transfer to tertiary care facility. Late morning, I discussed his worsening renal function and rising K with Dr. Priti Forrest of Nephrology on 04/23; she recommends transitioning from oral Torsemide to IV Furosemide on 04/23 and notes that if K/Cr don't improve, consider transfer to tertiary facility 04/24. After this discussion, Amari is pre-contemplative regarding transfer. Exam Narrative: Exam Narrative: GEN: Alert and oriented, laying comfortably in bedside chair HEENT: EOMIs bilaterally, no scleral icterus CV: RRR, + systolic murmur R: LCTA bilaterally without concerning wheezing Ext: BLE edema, 2-3+ and symmetric, wrapped Skin: Scattered bruising throughout extremities Neuro: No focal deficits, no resting tremor Psych: Appropriate Const: Vital Signs, click to edit/add: Vital Signs - 24 hr 04/22/25 11:00 04/22/25 15:04/22/25 15:00 Temperature 98.2 F Pulse Rate 83 Pulse Rate [Pulse Oximeter] 87 87 Respiratory Rate 20 20 Blood Pressure [Le ft Arm] 119/77 Blood Pressure [Ri ght Arm] Pulse Oximetry 98 Oxygen Delivery Me thod Room Air 04/22/25 15:00 04/22/25 15:00 04/22/25 20:20 Temperature 98.1 F 96.3 F L Pulse Rate Pulse Rate [Pulse Oximeter] 93 93 Respiratory Rate 20 20 20 Blood Pressure [Le ft Arm] 103/76 117/81 Blood Pressure [Ri ght Arm] Pulse Oximetry 98 97 93 Oxygen Delivery Me thod Room Air Room Air Room Air 04/22/25 23:00 04/22/25 23:00 04/22/25 23:25 Temperature Pulse Rate 83 Pulse Rate [Pulse Oximeter] 89 Respiratory Rate 16 Blood Pressure [Le ft Arm] Blood Pressure [Ri ght Arm] Pulse Oximetry 93 Oxygen Delivery Me thod Room Air 04/22/25 23:25 04/23/25 03:00 04/23/25 08:04 Temperature 97.6 F 95.9 F L 97.7 F Pulse Rate Pulse Rate [Pulse Oximeter] 70 87 95 Respiratory Rate 16 16 14 Blood Pressure [Le ft Arm] 113/76 Blood Pressure [Ri ght Arm] 140/79 H 114/67 Pulse Oximetry 94 98 98 Oxygen Delivery Ky thod Room Air Room Air Room Air 04/23/25 08:13 04/23/25 09:17 Temperature Pulse Rate Pulse Rate [Pulse Oximeter] 95 Respiratory Rate 14 Blood Pressure [Le ft Arm] Blood Pressure [Ri ght Arm] Pulse Oximetry 100 Oxygen Delivery Ky thod Room Air Labs Labs: Laboratory Results - last 24 hr 04/22/25 04/23/25 04/23/25 11:28 06:04 07:11 WBC 15.02 H 15.19 H RBC 4.33 4.61 Hgb 12.0 L 12.7 L Hct 37.3 39.8 MCV 86 86 MCH 28 28 MCHC 32 32 RDW Coeff of Royal 16.6 H 16.8 H Plt Count 274 319 Neut % (Auto) 82.0 H 82.2 H Lymph % (Auto) 6.6 L 6.6 L [place] % (Auto) 9.3 8.0 Eos % (Auto) 0.9 1.3 Baso % (Auto) 0.1 0.1 Neut # (Auto) 12.30 H 12.50 H Lymph # (Auto) 1.00 1.00 [place] # (Auto) 1.40 H 1.20 H Eos # (Auto) 0.10 0.20 Baso # (Auto) 0.00 0.00 Abs Immat Gran (auto) 0.20 0.30 Imm/Tot Granulo (auto) 1.1 1.8 Absolute Retic 0.13 H Percent Retic 2.9 H Immature Retic Fraction 32.2 H Retic Hgb Equivalent 28.7 L VBG pH 7.251 L VBG pCO2 56 H VBG pO2 < 30.1 VBG HCO3 25 Sodium 123 L* 124 L* Potassium 5.0 5.9 H Chloride 90 L 88 L Carbon Dioxide 22 23 Anion Gap 11 13 BUN 76 H 80 H Creatinine 3.1 H 3.1 H Estimated Creat Clear 20.91 20.91 Estimated GFR 20 20 Glucose 113 152 H Lactate 2.7 H Calcium 8.9 9.2 Phosphorus 4.4 4.8 H Magnesium 2.5 2.5 C-Reactive Protein 13.9 H 7.9 H NT-Pro-B Natriuret Pep 4690 H Albumin 3.8 TSH 4.680 H Lab Acknowledgement Test Added
[2025-04-23] MEDS: DOCUSATE SODIUM 100 MG CAPSULE PO (11:26)
[2025-04-23] MEDS: SODIUM CHLORIDE 0.9 % (FLUSH) 10 ML SYRINGE 5 ML IVF ×2 (11:31→21:12)
[2025-04-23] MEDS: CEFAZOLIN 1 GM in 0.9 % SODIUM CHLORIDE Mini-bag 100 ML IVPB ×2 (11:32→21:43)
[2025-04-23] MEDS: FUROSEMIDE 10 MG/ML inj 40 MG IVP ×2 (11:32→18:14)
--- NOTE | 2025-04-23 15:55 | PC.SOCIAL ---
Discharge planning: fast foods worker met with pt again to discuss fpc facility placement after the hospital. Pt is now pre-contemplative about going to a SNF after this hospital stay. fast foods worker provided the pt with the list of [facility] Home Facilities to review when he has time. Pt stated to this worker that he was going to take a nap after this worker left. Social work to follow-up as needed.
--- NOTE | 2025-04-23 18:39 | PC.NURSE ---
[id number]: Pt. is pleasant and AOX4. Forgetful. VSS on RA. Afebrile. Tolerating therapeutic diet. BG monitored. OT and RN performed wound care and dressing change, pt.tolerated well. Dressing CDI. Pt. up to BR w/ X1-2 assist. Pt. prefers chair, encourage amb to BR. 150 cc output, will bladder scan.
[2025-04-23] MEDS: INSULIN ASPART 100 UNIT/ML SUBCUT (21:13)
--- NOTE | 2025-04-23 23:06 | PC.NURSE ---
Shift note [id number] The pt has been alert and oriented but appeared forgetful; denied chest pain and short of breath; Spo2 has been in the 90s in RA.? The pt has swelling to lower legs and the legs has been wrapped with dressing. The left leg wound was weeping through the dressing - the wound care was done.? The pt has been resting in the chair; refused to sleeping the bed; unable to assess coccyx as the patient refused to stay in the bed.??
[2025-04-24 03:00] VITALS: BP 107/84; PULSE 81; RESP 18; TEMP 36.4; O2SAT 99
[2025-04-24] MEDS: LEVOTHYROXINE 75 MCG TABLET PO (06:08)
[2025-04-24] MEDS: OMEPRAZOLE 20 MG CAPSULE DR PO (06:08)
[2025-04-24] MEDS: DOCUSATE SODIUM 100 MG CAPSULE PO (06:09)
--- NOTE | 2025-04-24 06:59 | PC.NURSE ---
pleasant and cooperative. A x 1 with gb & walker, tolerated well. No charted BM since 04/19, PRN senna given, will update MD to see if it can be scheduled.?BLE elevated, LLE dressing intact w/ drainage noted, RLE dressing intact. VSS. Afebrile. Tele ? AFib with BBB. ?
[2025-04-24 07:00] VITALS: PULSE 87
[2025-04-24 07:07] LABS: HCO3 VBG 24 mmol/L (21-28); PCO2 VBG 47 mmHG (40-50); PO2 VBG < 30.1 mmHG (25-47); pH VBG 7.310 (7.32-7.43)
[2025-04-24 07:21] LABS: Hematocrit 37.3 % (37.0-53.0); Hemoglobin* 12.0 gm/dL (13.5-17.5); Immature Granulocytes Abs Auto 0.23 K/uL (0.00-0.30); Immature Granulocytes Pct Auto 2.2 %; Mean Corpuscular HGB Conc 32 gm/dL (32-36); Mean Corpuscular Hemoglobin 28 pg (26-34); Mean Corpuscular Volume 86 fL (80-100); RDW Coefficient of Variation % 16.7 % (11.5-15.5); Red Blood Count 4.34 m/uL (4.30-5.90); White Blood Count* 10.42 K/uL (4.50-11.00)
[2025-04-24 07:31] LABS: Lymphocytes Absolute Auto 0.80 K/uL (0.90-2.90); Slide Review Reflex No
[2025-04-24 07:37] LABS: Albumin* 3.4 g/dL (3.3-5.0); Chloride* 90 mmol/L (96-114)
[2025-04-24 07:38] LABS: Potassium* 5.4 mmol/L (3.6-5.1)
[2025-04-24 07:40] LABS: Alanine Aminotransferase* 6 U/L (4-50); Anion Gap 10 mEq/L (7-15); Aspartate Amino Transferase* 31 U/L (12-35); Blood Urea Nitrogen* 87 mg/dL (7-30); Carbon Dioxide* 22 mmol/L (20-32); Creatinine* 2.8 mg/dL (0.5-1.5); Est. Creatinine Clearance* 23.15; Estimated Glomerular Filt Rate 23 ml/min
[2025-04-24 07:41] LABS: Alkaline Phosphatase* 116 U/L (40-150); Bilirubin Total* 1.2 mg/dL (0.1-1.5); Calcium* 8.6 mg/dL (8.4-10.6); Glucose* 127 mg/dL (60-115); Total Protein* 6.4 g/dL (6.0-8.3)
[2025-04-24 07:43] LABS: Sodium* 122 mmol/L (135-149)
[2025-04-24 08:00] VITALS: BP 111/78; PULSE 79; RESP 16; TEMP 36.4; O2SAT 99
[2025-04-24] MEDS: LACTULOSE 20 GM/30 ML PO (09:47)
[2025-04-24] MEDS: FOLIC ACID 1 MG TABLET PO (09:48)
[2025-04-24] MEDS: glipiZIDE 2.5 MG ER TAB PO (09:48)
[2025-04-24] MEDS: FERROUS SULFATE 325 MG TABLET PO (09:48)
[2025-04-24] MEDS: FUROSEMIDE 10 MG/ML inj 40 MG IVP ×2 (09:49→15:23)
[2025-04-24] MEDS: SODIUM CHLORIDE 0.9 % (FLUSH) 10 ML SYRINGE 5 ML IVF (09:49)
[2025-04-24] MEDS: THIAMINE 100 MG TABLET PO (09:49)
[2025-04-24] MEDS: CEFAZOLIN 1 GM in 0.9 % SODIUM CHLORIDE Mini-bag 100 ML IVPB (09:50)
[2025-04-24 11:40] VITALS: BP 128/98; PULSE 96; RESP 18; TEMP 36.6; O2SAT 99
--- NOTE | 2025-04-24 13:19 | PM.DST ---
Transfer Discharge Sum: Prov Provider Date Seen: 04/24/25 Date of admission: 04/20/25 16:43 Primary care physician: Lee Mukherjee MD Consults: PT, OT, Wound Care Attending physician on discharge: Niharika Lobo Anticipated date of transfer: 04/24/25 Receiving physician/facility: [facility] DS: Diagnosis Discharge Diagnosis (1) ANDREY (acute kidney injury): Status: Acute Problem details: - creatinine increased to 3.1 during stay with associated hyperkalemia (K peaked at 5.9) and mild acidosis - Suspect cardiorenal syndrome, reviewed case with Nephrology by phone during stay - multiple juancarlos discussions held with patient and sons on 04/24; options are restarting HD vs hospice/comfort focused care - he is agreeable to restarting HD on 04/24 and agrees to transfer to [facility] (2) Hyperkalemia: Status: Acute Problem details: - peaked at 5.9 - EKG stable - Lokelma given 04/23 - discussed with Dr. Priti Forrest, Nephrology on 04/23; recommends transitioning from oral Torsemide to IV Furosemide on 04/23 (3) Acute on chronic heart failure: Status: Acute Problem details: - HFpEF with concern for acute exacerbation given significant LE edema - transthoracic echocardiogram 04/21/2025: 1. Normal LV chamber size, wall thickness, global function, LVEF 71%. 2. Normal RV size with function not well visualized. 3. Moderate to severe tricuspid valve regurgitation. 4. Dilated inferior vena cava with respiratory size variation less than 50%. 5. Severely enlarged atria. 6. Moderate pericardial effusion without echocardiographic findings of tamponade. (4) Chronic kidney disease (CKD): Status: Acute Problem details: - stage IV-V, baseline creatinine is around 2 over the last 6 months - has required course of HD in the past (5) Pericardial effusion: Status: Acute Problem details: - Moderate on ECHO 04/21/25, without evidence of tamponade - stable on RA, no chest pain (6) Hyponatremia: Status: Acute Problem details: - Suspect chronic, related to volume overload/exacerbation of HFpEF - continue diuresis, + fluid restriction (7) Leukocytosis: Status: Acute Problem details: - admission WBC 21 --> 10 on 04/24, treated for LE cellulitis with Ancef (8) Cellulitis: Status: Acute Problem details: - LLE, improved during stay - worsened by loss skin integrity, massive edema, and weeping - Treat with Ancef, renally dosed - OT following for lymphedema treatment, seen by Wound care as well (9) Normocytic anemia: Status: Chronic Problem details: - likely multifactorial due to h/o GI bleed, CKD - no evidence of acute blood loss at this time, d/c Hgb is 12 (10) Type 2 diabetes mellitus: Status: Chronic Problem details: - continue glipizide, accuchecks reassuring (120s-160s) (11) Chronic atrial fibrillation: Status: Chronic Problem details: - h/o bradycardia on coreg, has not been on any rate control as outpatient, stable HR on telemetry during stay - Eliquis discontinued last year due to h/o GI bleeding, anemia. PCP has recommended restarting it, patient declined. (12) Edema, peripheral: Status: Acute Problem details: - Bilateral, L worse than R. LLE US negative for DVT - Diurese, elevate, consult OT and wound care - lymphedema wraps Transfer Discharge Sum: Med Medications Active and Home Medications: Home Medications acetaminophen 325 mg capsule 325 mg PO QID PRN 12/16/23 [History Confirmed 04/20/25] atorvastatin 20 mg tablet 20 mg PO HS 12/16/23 [History Confirmed 04/20/25] ferrous sulfate 325 mg (65 mg iron) tablet (FeroSul) 325 mg PO DAILY 12/16/23 [History Confirmed 04/20/25] folic acid 1 mg tablet 1 mg PO DAILY 12/16/23 [History Confirmed 04/20/25] levothyroxine 75 mcg tablet 75 mcg PO QAM 12/16/23 [History Confirmed 04/20/25] magnesium chloride 64 mg (magnesium chloride) tablet,delayed release (Mag 64) 64 mg PO BID 12/16/23 [History Confirmed 04/20/25] omeprazole 20 mg capsule,delayed release 20 mg PO DAILY 12/16/23 [History Confirmed 04/20/25] thiamine HCl (vitamin B1) 100 mg tablet 100 mg PO DAILY 12/16/23 [History Confirmed 04/20/25] torsemide 20 mg tablet 20 mg PO BID 12/16/23 [History Confirmed 04/20/25] glipizide 2.5 mg tablet, extended release 24 hr 2.5 mg PO DAILY 04/20/25 [History Confirmed 04/20/25] Active Medications Acetaminophen (Acetaminophen 325 Mg Tablet) 650 mg PO Q6H PRN PRN Reason: As needed for fever, headache, or minor pain Last Admin: 04/22/25 12:36 Dose: 650 mg Docusate Sodium (Docusate Sodium 100 Mg Capsule) 100 mg PO BID PRN PRN Reason: Constipation Last Admin: 04/24/25 06:09 Dose: 100 mg Ferrous Sulfate (Ferrous Sulfate 325 Mg Tablet) 325 mg PO DAILY [facility] Last Admin: 04/24/25 09:48 Dose: 325 mg Folic Acid (Folic Acid 1 Mg Tablet) 1 mg PO DAILY [facility] Last Admin: 04/24/25 09:48 Dose: 1 mg Furosemide (Furosemide 10 Mg/Ml Inj) 40 mg IVP BID@14 [facility] Last Admin: 04/24/25 09:49 Dose: 40 mg Glipizide (Glipizide 2.5 Mg Er Tab) 2.5 mg PO DAILY [facility] Last Admin: 04/24/25 09:48 Dose: 2.5 mg Hydromorphone HCl (Hydromorphone 0.5 Mg/0.5 Ml Inj) 0.5 mg IVP Q1H PRN PRN Reason: Pain Last Admin: 04/22/25 18:42 Dose: 0.5 mg Cefazolin Sodium 1 gm/ Sodium (Chloride) 100 mls @ 200 mls/hr IVPB Q12H [facility] Last Infusion: 04/24/25 11:00 Dose: Infused Insulin Aspart (Insulin Aspart 100 Unit/Ml) 0 unit SUBCUT [facility]; Protocol Last Admin: 04/24/25 12:19 Dose: Not Given Lactulose (Lactulose 20 Gm/30 Ml) 20 gm PO BID [facility] Last Admin: 04/24/25 09:47 Dose: 20 gm Levothyroxine Sodium (Levothyroxine 75 Mcg Tablet) 75 mcg PO DAILY@0700 [facility] Last Admin: 04/24/25 06:08 Dose: 75 mcg Omeprazole (Omeprazole [address]) 20 mg PO DAILY@0700 [facility] Last Admin: 04/24/25 06:08 Dose: 20 mg Oxycodone HCl (Oxycodone 5 Mg Tablet) 7.5 mg PO Q4H PRN PRN Reason: Pain Last Admin: 04/23/25 13:22 Dose: 7.5 mg Sodium Chloride (Sodium Chloride 0.9 % (Flush) 10 Ml Syringe) 5 ml IVF .FLUSH PRN Last Admin: 04/22/25 09:34 Dose: 5 ml Sodium Chloride (Sodium Chloride 0.9 % (Flush) 10 Ml Syringe) 5 ml IVF BID [facility] Last Admin: 04/24/25 09:49 Dose: 5 ml Sodium Chloride (0.9 % Sodium Chloride 250 Ml) 250 ml IV Q24H [facility] Last Admin: 04/24/25 09:50 Dose: 250 ml Thiamine HCl (Thiamine 100 Mg Tablet) 100 mg PO DAILY [facility] Last Admin: 04/24/25 09:49 Dose: 100 mg Transfer Discharge Sum: Hosp Hospital Course Hospital course: Javi Whiteside is a 74 year old male who was admitted to the hospital on 04/20 for LLE cellulitis, increased edema and ANDREY superimposed on CKD (previously on HD). Comorbidities include HFpEF, moderate TR, paroxysmal atrial fibrillation (not anticoagulated given h/o GI Bleed). Since admission: - worsening renal function with hyperkalemia (peak Cr of 3.1, K of 5.9) - treated with Torsemide 20mg BID, escalated to 20mg BID IV Furosemide after Nephrology discussion 04/23/25 - LE edema improving, working with therapies for wraps - treated cellulitis of LLE with Ancef, + clinical improvement, continued weeping from sores - Blood sugars stable (80s-160s) - Hyponatremia with Na of 122 on 04/24 (fluid restriction) Patient had initially declined transfer to tertiary care center; juancarlos discussion held with patient and son by phone on 04/24/2025. We discussed that options were to either transfer and reinitiate hemodialysis vs transition to hospice; patient and family decided to initiate transfer to tertiary care center. Reviewed with Nephrology by phone, and Dr. Urena, hospitalist at [facility]; patient accepted in transfer on 04/24/2025. Time Spent with Patient Time attestation: Total time spent providing and/or coordinating transfer services: Total time spent: Greater than 30 minutes Exam Narrative: Exam Narrative: GEN: More sleepy today than previous, wakes to voice HEENT: EOMIs bilaterally, no scleral icterus CV: RRR, harsh early systolic murmur with blowing diastolic murmur noted, both heard best at right sternal border R: Decreased bibasilar breath sounds without wheezing Ext: 3-4+ edema of bilateral lower extremities, erythema of left lower extremity has shown some improvement. Has weeping sores bilateral lower extremities Neuro: No focal deficits or resting tremor, gait not observed Psych: Appropriate Const: Vital Signs, click to edit/add: Vital Signs - 24 hr 04/23/25 15:00 04/23/25 15:14 04/23/25 15:15 Temperature 97.8 F Pulse Rate 99 Pulse Rate [Pulse Oximeter] 90 Respiratory Rate 14 14 Blood Pressure [Le ft Arm] Blood Pressure [Ri ght Arm] 109/74 Pulse Oximetry 97 97 Oxygen Delivery Me thod Room Air Room Air 04/23/25 15:49 04/23/25 20:00 04/23/25 23:00 Temperature 97.7 F 97.8 F Pulse Rate Pulse Rate [Pulse Oximeter] 90 79 81 Respiratory Rate 16 16 Blood Pressure [Le ft Arm] 103/66 111/67 Blood Pressure [Ri ght Arm] Pulse Oximetry 94 98 Oxygen Delivery Me thod Room Air Room Air 04/23/25 23:00 04/23/25 23:00 04/23/25 23:00 Temperature Pulse Rate 86 Pulse Rate [Pulse Oximeter] 81 Respiratory Rate 16 16 Blood Pressure [Le ft Arm] Blood Pressure [Ri ght Arm] Pulse Oximetry 98 Oxygen Delivery Me thod Room Air 04/24/25 03:00 04/24/25 07:00 04/24/25 08:00 Temperature 97.6 F Pulse Rate 87 Pulse Rate [Pulse Oximeter] 81 79 Respiratory Rate 18 16 Blood Pressure [Le ft Arm] 107/84 Blood Pressure [Ri ght Arm] Pulse Oximetry 99 Oxygen Delivery Me thod Room Air 04/24/25 08:00 04/24/25 08:00 04/24/25 11:40 Temperature 97.6 F 97.8 F Pulse Rate Pulse Rate [Pulse Oximeter] 79 96 Respiratory Rate 16 16 18 Blood Pressure [Le ft Arm] 111/78 128/98 H Blood Pressure [Ri ght Arm] Pulse Oximetry 99 99 99 Oxygen Delivery Me thod Room Air Room Air Room Air Discharge Plan Discharge Disposition: [facility] Date of Admission: 04/20/25 16:43 Attending Provider on Discharge: Niharika Lobo Primary Care Provider: Lee Mukherjee Discharge Orders: Transfer of Care to Other Hospital (ORDER); Ordered 04/24/25 Ordered By: Niharika Lobo Oxygen: No Urinary Catheter: No Services not available here: Nephrology, Cardiology
[2025-04-24 15:00] VITALS: PULSE 89; RESP 13
[2025-04-24 15:26] VITALS: BP 107/78; PULSE 89; RESP 13; TEMP 36.7; O2SAT 99
--- NOTE | 2025-04-24 18:26 | PC.NURSE ---
Patient discharged to [facility] via EMS cart in stable condition. RN to RN report was completed with LOVE Haddad at [facility] prior to patient leaving. Patient Vitals stable, Afib with controlled rate on tele.
== END 2025-04-24 18:22 | disposition short-term general hospital (02) | DRG 682 ==
LOC: ED 15:40 → MEDSURG 15:42
PROVIDERS: Family Medicine; Internal Medicine; Admitting Provider Family Medicine; Emergency Provider Emergency Medicine; PCP Family Medicine; Visit Provider Family Medicine
DX: N17.9 Acute kidney failure, unspecified (principal); I50.33 Acute on chronic diastolic (congestive) heart failure; L03.116 Cellulitis of left lower limb; I13.0 Hypertensive heart and chronic kidney disease with heart failure and stage 1 through stage 4 chronic kidney disease, or unspecified chronic kidney disease; I48.20 Chronic atrial fibrillation, unspecified; E87.1 Hypo-osmolality and hyponatremia; L97.929 Non-pressure chronic ulcer of unspecified part of left lower leg with unspecified severity; L97.919 Non-pressure chronic ulcer of unspecified part of right lower leg with unspecified severity; I30.9 Acute pericarditis, unspecified; I89.0 Lymphedema, not elsewhere classified; I87.8 Other specified disorders of veins; R60.0 Localized edema; N18.4 Chronic kidney disease, stage 4 (severe); E11.22 Type 2 diabetes mellitus with diabetic chronic kidney disease; I48.0 Paroxysmal atrial fibrillation; E87.5 Hyperkalemia; I27.20 Pulmonary hypertension, unspecified; Z68.35 Body mass index [BMI] 35.0-35.9, adult; I08.1 Rheumatic disorders of both mitral and tricuspid valves; D50.9 Iron deficiency anemia, unspecified; Z79.84 Long term (current) use of oral hypoglycemic drugs; E66.9 Obesity, unspecified; K21.9 Gastro-esophageal reflux disease without esophagitis; E03.9 Hypothyroidism, unspecified; E78.5 Hyperlipidemia, unspecified; M10.9 Gout, unspecified; Z87.891 Personal history of nicotine dependence
CPT/HCPCS: 36415; 51798; 71045; 76604; 76705; 80048; 80053; 80069; 81001; 82803; 82962; 83605; 83735; 83880; 84100; 84295; 84443; 84484; 85025; 85045; 86140; 87040; 93005; 93306; 93308; 93970; 94761; 97110; 97116; 97161; 97166; 97530; 97535; 99284; 99285; A9270; J0690; J1171; J1938; J2405; J7050; J7131; Q9957

== ENCOUNTER 2025-04-24 18:12 | Outpatient (CLI) | payer MEDICARE, BC, SELFPAY | END 2025-04-24 18:13 | disposition home or self-care (01) | PROVIDERS: PCP Family Medicine; Visit Provider Emergency Medicine | DX: N17.9 Acute kidney failure, unspecified (principal); E87.5 Hyperkalemia; I50.9 Heart failure, unspecified; N18.9 Chronic kidney disease, unspecified | CPT/HCPCS: A0425; A0427 ==